=== PATIENT | female | born 1930 | race Caucasian/White ===

== ENCOUNTER 2016-07-29 09:48 | Inpatient (IN) | payer OTHER ==
[~2016-07-29] VITALS: Ht 167.6 cm; Wt 67.9 kg
[~2016-07-29 09:48] MED LIST: ARC5 PO; GLC5 PO; GLC500 PO; LISI-461 PO; NITR0.1D TD; OXYC-57 PO; SIMV80TA2 PO
[2016-07-29] MEDS ORDERED: SODIUM CHLORIDE 0.9% 500ML 500 ML IV STA (10:08)
--- NOTE | 2016-07-29 10:11 | EMERGENCY ROOM VISIT NOTE ---
History Report prepared by Vilma: Hayley Brambila Under the Supervision of: Dr. Jatinder Milton M.D. First contact with patient: 10:04 Chief Complaint: VOMITING Stated Complaint: VOMITING History of Present Illness The patient is an 86 year old female who presents to the Emergency Room with complaints of persistent vomiting that occurred prior to arrival. Per nursing staff, the patient arrives via ALS from [facility]. Nursing staff reports that the patient had a large emesis this morning that was coffee ground and had some bright red color to it. The history is limited secondary to the patient being nonverbal. Source of History: nursing staff History Limited By: other (nonverbal) Onset: prior to arrival Position: other (global) Quality: other (vomiting) Timing: other (persistent) Note: Associated Symptoms: coffee ground emesis, bright red colored emesis. Review of Systems The history is limited secondary to the patient being nonverbal. Past Medical & Surgical Medical Problems: (1) CVD (cardiovascular disease) (2) Diabetes mellitus, type II (3) Dyslipidemia (4) HTN (hypertension) Unobtainable secondary to the patient being nonverbal. Family History Unobtainable secondary to the patient being nonverbal. Social History Smoking Status: Unknown if Ever Smoked Social History: Unobtainable secondary to the patient being nonverbal. Current/Historical Medications Scheduled Atorvastatin (Lipitor), 40 MG PO DAILY Calcium Carbonate-Vitamin D (Oyster Calcium/Vitamin D), 1 TAB PO BID Cholecalciferol (Vitamin D3), 1,000 INTER.UNIT PO QAM Insulin Aspart (Novolog Flexpen), 6 UNITS SC BID Insulin Glargine (Lantus Solostar), 26 UNITS SC HS Ipratropium-Albuterol (Duoneb), 1 TREATMENT INH TID Lisinopril (Zestril), 40 MG PO QAM Memantine (Namenda), 10 MG PO Q12 Scheduled PRN Acetaminophen Tab (Tylenol), 650 MG PO Q4H PRN for Mild Pain Guaifenesin (Guiatuss), 10 ML PO Q4H PRN for Cough Allergies Coded Allergies: No Known Allergies (Verified , 10/11/07) Physical Exam Vital Signs Date Time Temp Pulse Resp B/P Pulse Ox O2 Delivery O2 Flow Rate FiO2 07/29/16 12:34 75 18 95 Room Air 07/29/16 11:31 89 20 176/89 94 07/29/16 11:01 82 07/29/16 10:01 37.3 86 22 139/85 92 Room Air 07/29/16 10:00 93 Room Air Physical Exam GENERAL: Patient is nonverbal, doesn't follow commands, doesn't answer questions. HEAD: Normocephalic atraumatic EYES: Ocular movements intact pupils equal and react to light OROPHARYNX mucous membranes are moist no exudates present no erythema or edema present NECK: Supple no nuchal rigidity CHEST: Good equal expansion LUNGS: Clear and equal to auscultation CARDIAC: Normal S1 and S2 ABDOMEN: Soft nontender no guarding BACK: No CVA tenderness EXTREMITIES: No pain upon palpation normal muscle strength in all groups no clubbing cyanosis or edema NEURO: Patient is nonverbal, doesn't follow commands, doesn't answer questions. Medical Decision & Procedures ER Provider Diagnostic Interpretation: Radiology results as stated below per my review and radiologist interpretation: CT ABD/PELVIS IV CONTRAST ONLY CLINICAL HISTORY: Nausea and vomiting COMPARISON STUDY: None. TECHNIQUE: Following the IV administration of 94 mL of Optiray-320, CT scan of the abdomen and pelvis was performed from the lung bases to the proximal femurs. Images are reviewed in the axial, sagittal, and coronal planes. IV contrast was administered without complication. CT DOSE: 729.38 mGy.cm FINDINGS: Lower chest: There is right basilar pulmonary consolidation. There are bilateral pleural effusions right greater than left. There are left lower lobe atelectatic changes. There is mild distal esophageal wall thickening. Liver: The contrast-enhanced liver is normal in size, contour, and attenuation. There is no intrahepatic biliary ductal dilatation. The hepatic veins and portal veins are patent. Gallbladder: Presumed surgically absent Spleen: Normal in size and attenuation. Pancreas: Unremarkable. Adrenal glands: Unremarkable. Kidneys: There are small bilateral intrarenal calculi. No solid renal masses are visualized. Bowel: There is stool present throughout the colon. There are no transition zones to indicate bowel obstruction. There are no findings to indicate acute appendicitis. There are no findings to indicate acute diverticulitis. Peritoneum: There is no intraperitoneal free air or abdominal ascites. Vasculature: The abdominal aorta is normal in course and caliber. Adenopathy: None. Pelvic viscera: There is bladder wall thickening. Please correlate clinically in regards to a cystitis. The uterus appears surgically absent. Skeletal structures: Arthritic changes are present within the hips. There is a 9 mm lytic focus within the right iliac bone. There is a 17 mm lytic focus within the L4 vertebral body. The bones have a somewhat "chalky" appearance. IMPRESSION: 1. Small bilateral pleural effusions with right lower lobe consolidative change 2. Bilateral nephrolithiasis 3. No evidence of bowel obstruction. No evidence of free air 4. Moderate bladder wall thickening. Please correlate clinically in regards to a cystitis 5. Nonspecific lytic foci involving the right iliac bone and L4 vertebral body Electronically signed by: Hai Larsen M.D. 07/29/2016 11:31 AM Dictated Date/Time: 07/29/2016 11:24 AM SINGLE VIEW CHEST CLINICAL HISTORY: Aspiration. Vomiting. FINDINGS: An AP, portable, upright chest radiograph is compared to study dated 07/24/2010. The heart is enlarged and there is atherosclerotic calcification of the thoracic aorta. The pulmonary vasculature is noncongested. Chronic interstitial thickening is observed. There are low lung volumes. Patchy airspace opacities are present at both lung bases. No large pleural effusion or pneumothorax is seen. The skeletal structures are osteopenic. The bony thorax is grossly intact. A right shoulder arthroplasty is in place. Advanced degenerative change is noted in the thoracic spine. Chronic widening is seen at the right acromioclavicular joint. IMPRESSION: 1. Cardiac enlargement without radiographic evidence of congestive failure 2. Patchy airspace opacities are present at both lung bases. This could represent a mild infectious/inflammatory pneumonitis as clinically queried. Radiographic follow-up to resolution is recommended. 3. Low lung volumes. Electronically signed by: Lalo Gonzalez M.D. 07/29/2016 12:34 PM Dictated Date/Time: 07/29/2016 12:27 PM Laboratory Results Test 07/29/16 09:35 07/29/16 10:21 07/29/16 10:30 Immature Granulocyte % (Auto) 0.5 % White Blood Count 9.12 K/uL (4.8-10.8) Red Blood Count 4.76 M/uL (4.2-5.4) Hemoglobin 13.9 g/dL (12.0-16.0) Hematocrit 41.8 % (37-47) Mean Corpuscular Volume 87.8 fL (80-100) Mean Corpuscular Hemoglobin 29.2 pg (25-34) Mean Corpuscular Hemoglobin Concent 33.3 g/dl (32-36) Platelet Count 248 K/uL (130-400) Mean Platelet Volume 12.3 fL (7.4-10.4) Neutrophils (%) (Auto) 86.4 % Lymphocytes (%) (Auto) 8.3 % Monocytes (%) (Auto) 4.6 % Eosinophils (%) (Auto) 0.1 % Basophils (%) (Auto) 0.1 % Neutrophils # (Auto) 7.87 K/uL (1.4-6.5) Lymphocytes # (Auto) 0.76 K/uL (1.2-3.4) Monocytes # (Auto) 0.42 K/uL (0.11-0.59) Eosinophils # (Auto) 0.01 K/uL (0-0.5) Basophils # (Auto) 0.01 K/uL (0-0.2) Immature Granulocyte # (Auto) 0.05 K/uL (0.00-0.02) Prothrombin Time 10.9 SECONDS (9.0-12.0) Prothromb Time International Ratio 1.0 (0.9-1.1) Activated Partial Thromboplast Time 23.1 SECONDS (21.0-31.0) Partial Thromboplastin Ratio 0.9 Total Bilirubin 0.6 mg/dl (0.2-1) Direct Bilirubin 0.1 mg/dl (0-0.2) Aspartate Amino Transf (AST/SGOT) 15 U/L (15-37) Alanine Aminotransferase (ALT/SGPT) 15 U/L (12-78) Alkaline Phosphatase 99 U/L (45-117) Total Protein 6.7 gm/dl (6.4-8.2) Albumin 2.9 gm/dl (3.4-5.0) Lipase 113 U/L (73-393) Bedside Hemoglobin 12.9 g/dl (12.0-16.0) Bedside Hematocrit 38 % (37-47) Bedside Sodium 146 mEq/L (135-144) Bedside Potassium 4.3 mEq/L (3.3-5.0) Bedside Chloride 112 mEq/L (101-112) Bedside Total CO2 < 5 mEq/l (24-31) Bedside Blood Urea Nitrogen 34 mg/dl (7-18) Bedside Creatinine mg/dl (0.6-1.3) Bedside Glucose (other) 300 mg/dl (70-99) Bedside Ionized Calcium (Clare) 1.20 mmol/l (1.12-1.32) Urine Color DK YELLOW Urine Appearance CLOUDY (CLEAR) Urine pH 8.0 (4.5-7.5) Urine Specific [place] 1.026 (1.000-1.030) Urine Protein 1+ (NEG) Urine Glucose (UA) 2+ (NEG) Urine Ketones 1+ (NEG) Urine Occult Blood 3+ (NEG) Urine Nitrite NEG (NEG) Urine Bilirubin NEG (NEG) Urine Urobilinogen NEG (NEG) Urine Leukocyte Esterase LARGE (NEG) Urine WBC (Auto) >30 /hpf (0-5) Urine RBC (Auto) >30 /hpf (0-4) Urine Hyaline Casts (Auto) 5-10 /lpf (0-5) Urine Epithelial Cells (Auto) >30 /lpf (0-5) Urine Bacteria (Auto) 4+ (NEG) Labs reviewed by ED physician. Medications Administered Medications (Trade) Dose Ordered Sig/Rolly Route Start Time Stop Time Status Last Admin Dose Admin Sodium Chloride (Nss 500ml) 500 ml @ 999 mls/hr Q31M STAT IV 07/29/16 10:08 07/29/16 10:38 DC 07/29/16 10:08 999 MLS/HR Ceftriaxone Sodium (Rocephin Inj) 1 gm NOW STAT IV 07/29/16 11:31 07/29/16 11:32 DC 07/29/16 11:48 1 GM Albuterol/ Ipratropium (Duoneb) 12 ml ONE ONCE INH 07/29/16 12:00 07/29/16 12:01 DC 07/29/16 12:00 12 ML Levofloxacin (Levaquin / D5W) 750 mg NOW STAT IV 07/29/16 12:45 07/29/16 12:48 DC 07/29/16 14:02 750 MG ECG Indication: vomiting Rate (beats per minute): 86 Rhythm: sinus rhythm Findings: LBBB, no acute ischemic change, no ectopy ED Course 1006: Past medical records reviewed. The patient was evaluated in room B7. A complete history and physical examination was performed. 1008: Ordered Sodium Chloride 500 ml @ 999 mls/hr IV. 1131: Ordered Rocephin Inj 1 gm IV. 1200: Ordered Duoneb 12 ml INH. 1243: I discussed the patients case with Cindy Castellanos PA-C. She is going to evaluate the patient for further treatment. 1245: Ordered Levofloxacin 750 mg IV, Vancomycin HCl 1 gm IV. Medical Decision Differential diagnosis: Etiologies such as appendicitis, diverticulitis, PUD, biliary pathology, UTI, pancreatitis, obstruction, mesenteric ischemia, aortic pathology, infections, inflammatory bowel disease, renal colic, as well as others were entertained. His is an 86-year-old female who presents emergency department with a low-grade fever and altered mental status. The patient is normally non-verbal. Upon arrival to the emergency department there is concerned that the patient may have aspirated. She does appear to have pneumonia on her chest x-ray. She was sent for CAT scan of the abdomen and pelvis which was concerning for cystitis. The patient does appear to have a urinary tract infection. The patient was pancultured up and started on normal saline bolus. I did discuss the case with the hospitalist service who agreed to admit the patient. Patient was in agreement with the treatment plan. Consults Time Called: 1243 Consulting Physician: Cindy Castellanos PA-C Returned Call: 1243 I discussed the patients case with Cindy Castellanos PA-C. She is going to evaluate the patient for further treatment. Impression Primary Impression: Aspiration pneumonia Additional Impression: Altered mental status Scribe Attestation The scribe's documentation has been prepared under my direction and personally reviewed by me in its entirety. I confirm that the note above accurately reflects all work, treatment, procedures, and medical decision making performed by me. Departure Information Dispostion Being Evaluated By Hospitalist Referrals Zulay Escamilla M.D. (PCP) Problem Qualifiers Primary Impression: Aspiration pneumonia Aspiration pneumonia type: unspecified Laterality: unspecified laterality Lung location: unspecified part of lung Qualified Codes: J69.0 - Pneumonitis due to inhalation of food and vomit Additional Impression: Altered mental status Altered mental status type: unspecified Qualified Codes: R41.82 - Altered mental status, unspecified
[2016-07-29 10:18] LABS: BASO % 0.1 %; BASO ABS # 0.01 K/uL (0-0.2); COMPLETE YES; EOS % 0.1 %; HEMATOCRIT 41.8 % (37-47); IG% 0.5 %; LYMPH % 8.3 %; LYMPH ABS # 0.76 K/uL (1.2-3.4); MEAN CELL VOLUME 87.8 fL (80-100); MEAN CORPUSCULAR HEMOGLOBIN 29.2 pg (25-34); MEAN CORPUSCULAR HGB CONC 33.3 g/dl (32-36); MEAN PLATELET VOLUME 12.3 fL (7.4-10.4); MONO % 4.6 %; NEUT % 86.4 %; PLATELET COUNT 248 K/uL (130-400); RED BLOOD COUNT 4.76 M/uL (4.2-5.4); WHITE BLOOD COUNT 9.12 K/uL (4.8-10.8)
[2016-07-29] MEDS ORDERED: LISI40TA PO (10:29)
[2016-07-29] MEDS ORDERED: [UNRECOGNIZED DRUG - CODE] PO (10:29)
[2016-07-29] MEDS ORDERED: NVLGI/PEN SC (10:29)
[2016-07-29] MEDS ORDERED: CALC-225 PO (10:29)
[2016-07-29] MEDS ORDERED: ACET325T96 PO (10:29)
[2016-07-29] MEDS ORDERED: IPRASOL4 INH (10:29)
[2016-07-29] MEDS ORDERED: INSDGIPEN SC (10:29)
[2016-07-29] MEDS ORDERED: ATOR-24 PO (10:29)
[2016-07-29] MEDS ORDERED: CHOL1000 PO (10:29)
[2016-07-29] MEDS ORDERED: NMN10 PO (10:29)
[2016-07-29 10:34] LABS: PARTIAL THROMBOPLASTIN RATIO 0.9; PROTHROMBIN TIME (PATIENT) 10.9 SECONDS (9.0-12.0)
[2016-07-29 10:35] LABS: ALT/SGPT 15 U/L (12-78); BLOOD UREA NITROGEN 30 mg/dl (7-18); BUN/CREATININE RATIO 29.5 (10-20); CARBON DIOXIDE 27 mmol/L (21-32); CHLORIDE 111 mmol/L (98-107); GLUCOSE 289 mg/dl (70-99); POTASSIUM 4.2 mmol/L (3.5-5.1); SODIUM 148 mmol/L (136-145)
[2016-07-29 10:36] LABS: CALCIUM 9.7 mg/dl (8.5-10.1)
[2016-07-29 10:38] LABS: ALKALINE PHOSPHATASE 99 U/L (45-117); AST/SGOT 15 U/L (15-37)
[2016-07-29] MEDS ORDERED: OPTIRAY 320 IV PRN (10:45)
[2016-07-29 11:06] LABS: URINE APPEARANCE CLOUDY (CLEAR); URINE BILIRUBIN NEG (NEG); URINE COLOR DK YELLOW; URINE EPITHELIAL CELL AUTO >30 /lpf (0-5); URINE NITRITE NEG (NEG); URINE SPECIFIC GRAVITY 1.026 (1.000-1.030); UROBILINOGEN NEG (NEG); ZZURINE CULT IF INDIC CATH YES
[2016-07-29 11:19] LABS: MANUAL MICROSCOPIC REQUIRED? NO; REVIEW REQ? NO; SULFASALICYLIC ACID POS (NEG)
[2016-07-29] MEDS ORDERED: CEFTRIAXONE SOD INJ 1 GM ADDVIAL IV STA (11:31)
--- NOTE | 2016-07-29 11:33 | DIAGNOSTIC IMAGING REPORT ---
CT ABD/PELVIS IV CONTRAST ONLY CLINICAL HISTORY: Nausea and vomiting COMPARISON STUDY: None. TECHNIQUE: Following the IV administration of 94 mL of Optiray-320, CT scan of the abdomen and pelvis was performed from the lung bases to the proximal femurs. Images are reviewed in the axial, sagittal, and coronal planes. IV contrast was administered without complication. CT DOSE: 729.38 mGy.cm FINDINGS: Lower chest: There is right basilar pulmonary consolidation. There are bilateral pleural effusions right greater than left. There are left lower lobe atelectatic changes. There is mild distal esophageal wall thickening. Liver: The contrast-enhanced liver is normal in size, contour, and attenuation. There is no intrahepatic biliary ductal dilatation. The hepatic veins and portal veins are patent. Gallbladder: Presumed surgically absent Spleen: Normal in size and attenuation. Pancreas: Unremarkable. Adrenal glands: Unremarkable. Kidneys: There are small bilateral intrarenal calculi. No solid renal masses are visualized. Bowel: There is stool present throughout the colon. There are no transition zones to indicate bowel obstruction. There are no findings to indicate acute appendicitis. There are no findings to indicate acute diverticulitis. Peritoneum: There is no intraperitoneal free air or abdominal ascites. Vasculature: The abdominal aorta is normal in course and caliber. Adenopathy: None. Pelvic viscera: There is bladder wall thickening. Please correlate clinically in regards to a cystitis. The uterus appears surgically absent. Skeletal structures: Arthritic changes are present within the hips. There is a 9 mm lytic focus within the right iliac bone. There is a 17 mm lytic focus within the L4 vertebral body. The bones have a somewhat "chalky" appearance. IMPRESSION: 1. Small bilateral pleural effusions with right lower lobe consolidative change 2. Bilateral nephrolithiasis 3. No evidence of bowel obstruction. No evidence of free air 4. Moderate bladder wall thickening. Please correlate clinically in regards to a cystitis 5. Nonspecific lytic foci involving the right iliac bone and L4 vertebral body Electronically signed by: Hai Larsen M.D. 07/29/2016 11:31 AM Dictated Date/Time: 07/29/2016 11:24 AM
[2016-07-29] MEDS ORDERED: ALBUT/IPRATROP 3MG/0.5MG NEB 3 ML VIAL INH ONE (12:00)
[2016-07-29 12:34] VITALS: PULSE 75; O2SAT 95
--- NOTE | 2016-07-29 12:36 | DIAGNOSTIC IMAGING REPORT ---
SINGLE VIEW CHEST CLINICAL HISTORY: Aspiration. Vomiting. FINDINGS: An AP, portable, upright chest radiograph is compared to study dated 07/24/2010. The heart is enlarged and there is atherosclerotic calcification of the thoracic aorta. The pulmonary vasculature is noncongested. Chronic interstitial thickening is observed. There are low lung volumes. Patchy airspace opacities are present at both lung bases. No large pleural effusion or pneumothorax is seen. The skeletal structures are osteopenic. The bony thorax is grossly intact. A right shoulder arthroplasty is in place. Advanced degenerative change is noted in the thoracic spine. Chronic widening is seen at the right acromioclavicular joint. IMPRESSION: 1. Cardiac enlargement without radiographic evidence of congestive failure 2. Patchy airspace opacities are present at both lung bases. This could represent a mild infectious/inflammatory pneumonitis as clinically queried. Radiographic follow-up to resolution is recommended. 3. Low lung volumes. Electronically signed by: Lalo Gonzalez M.D. 07/29/2016 12:34 PM Dictated Date/Time: 07/29/2016 12:27 PM
[2016-07-29] MEDS ORDERED: VANCOMYCIN 1GM/270ML NSS IV STA (12:45)
[2016-07-29] MEDS ORDERED: LEVAQUIN 750MG / 150ML D5W IV STA (12:45)
[2016-07-29] MEDS ORDERED: ONDANSETRON INJ 2 MG/ML 2 ML VIAL IV PRN (13:30)
[2016-07-29] MEDS ORDERED: ACETAMINOPHEN 325 MG TAB PO PRN (13:30)
[2016-07-29] MEDS ORDERED: DEXTROSE 50% 50 ML SYR IV PRN (14:00)
[2016-07-29] MEDS ORDERED: GLUCOSE 10 TABS/TUBE PO PRN (14:00)
[2016-07-29] MEDS ORDERED: GLUCOSE 40% GEL 15 GM TUBE PO PRN (14:00)
[2016-07-29] MEDS ORDERED: GLUCAGON FOR INJ 1 MG VIAL SQ PRN (14:00)
[2016-07-29] MEDS ORDERED: GUAIFENESIN SUGAR FREE 100 MG/5 ML UDC PO PRN (14:00)
[2016-07-29 15:00] VITALS: BP 129/78; PULSE 112; TEMP 37.1; O2SAT 91; Ht 167.6 cm; Wt 67.9 kg
--- NOTE | 2016-07-29 15:05 | Progress Note ---
Progress Note Date of Service Jul 29, 2016. Progress Note Patient was seen and evaluated with Johana BANDA. Patient came from [place] for possible aspiration/coffee ground vomitus. On my evaluation, she is Awake, alert, but disoriented x 3 as per her baseline, minimal communication which is the baseline Lungs- AEBE decreased, no wheezing, Heart- S1, S2 normal, Abd- soft, non tender , non distended, BS present, Ext- no edema Neuro- Grossly no focal deficits. A/P: 1. POSSIBLE ASPIRATION PNEUMONIA Noted by NH, possibly aspirated as had a vomitus Not hypoxic- 90% at rest, HR a bit up, no leucocytosis, CXR- patchy bilateral airspace opacities -IV Unasyn empirically to cover pneumonia/Abnormal UA concerning for UTI -Discussed with - permissive aspiration, understands risk of aspiration including pneumonias, understands. -No indication for speech evaluation. Aspiration precautions + 2. HYPERNATREMIA, MILD Likely hypovolemic secondary to infection/inadequate intake/Dementia -IV Fluids and encourage PO to be given by RN round the clock while awake ( order placed) -Monitor 2. QUESTIONABLE COFFEE GROUND EMESIS ? -Unable to get any history of melena or concerns about fresh red blood in stool -Hb stable at 13 -Will monitor -Protonix BID PO 3. ADVANCED DEMENTIA -At baseline per - minimal communication, disoriented x 3, awake, alert though. DISPOSITION Doubt it will participate in PT/OT. Code status needs to be addressed in AM Admission to med-surg Back to NH once stable Discussed with by bedside.
--- NOTE | 2016-07-29 15:29 | History and Physical ---
History & Physical Date & Time of Service: Jul 29, 2016 at 14:32 Chief Complaint: Vomiting Primary Care Physician: Zulay Escamilla M.D. History of Present Illness Source: patient This is an 86 y/o female with PMHx of Insulin-Dependent DM2, HTN, Dyslipidemia who presents to the ED from [facility] due to episode of coffee- ground emesis this morning. Pt is non-verbal due to severe dementia therefore entire history is obtained from skilled nursing documentation. Per records, patient was found with copious amounts of vomit that looked coffee-ground in appearance. She was also noted to have a wet-cough. Unable to obtain ROS due to severe dementia. In the ED, vitals are stable. Pt is afebrile with no leukocytosis. HgB 13.9. CXR RLL consolidation. UA 4+ bacteria. Pt has not had any more episodes of emesis since arrival to the ED. She is stable and will be admitted for further evaluation and treatment. Past Medical/Surgical History Medical Problems: (1) CVD (cardiovascular disease) Status: Chronic (2) Diabetes mellitus, type II Status: Chronic (3) Dyslipidemia Status: Chronic (4) HTN (hypertension) Status: Chronic Social History Smoking Status: Unknown if Ever Smoked Alcohol Use: none Drug Use: none Marital Status: Housing status: skilled nursing Occupational Status: retired Immunizations History of Influenza Vaccine: Unknown Influenza Vaccine Date: Jan 28, 2010 History of Tetanus Vaccine?: Unknown History of Pneumococcal: Yes Pneumococcal Date: August 29, 2010 History of Hepatitis B Vaccine: Unknown Multi-Drug Resistant Organisms History of MDRO: No Allergies Coded Allergies: No Known Allergies (Verified , 10/11/07) Home Medications Scheduled Atorvastatin (Lipitor), 40 MG PO DAILY Calcium Carbonate-Vitamin D (Oyster Calcium/Vitamin D), 1 TAB PO BID Cholecalciferol (Vitamin D3), 1,000 INTER.UNIT PO QAM Insulin Aspart (Novolog Flexpen), 6 UNITS SC BID Insulin Glargine (Lantus Solostar), 26 UNITS SC HS Ipratropium-Albuterol (Duoneb), 1 TREATMENT INH TID Lisinopril (Zestril), 40 MG PO QAM Memantine (Namenda), 10 MG PO Q12 Scheduled PRN Acetaminophen Tab (Tylenol), 650 MG PO Q4H PRN for Mild Pain Guaifenesin (Guiatuss), 10 ML PO Q4H PRN for Cough Review of Systems Unable to obtain ROS due to severe dementia Physical Exam Vital Signs Date Time Temp Pulse Resp B/P Pulse Ox O2 Delivery O2 Flow Rate FiO2 07/29/16 14:00 112 22 130/85 94 Room Air 07/29/16 12:34 75 18 95 Room Air 07/29/16 11:31 89 20 176/89 94 07/29/16 11:01 82 07/29/16 10:01 37.3 86 22 139/85 92 Room Air 07/29/16 10:00 93 Room Air General Appearance: WD/WN, no apparent distress, + pertinent finding (Pt is laying in bed with no family at bedside ) Head: normocephalic, atraumatic Eyes: normal inspection ENT: hearing grossly normal Neck: supple Respiratory/Chest: chest non-tender, no respiratory distress, + rhonchi ( diffuse), + pertinent finding (no wheezing noted) Cardiovascular: regular rate, rhythm, no edema, no murmur Abdomen/GI: normal bowel sounds, non tender, soft Back: normal inspection Extremities/Musculoskelatal: normal inspection, no calf tenderness, no pedal edema Neurologic/Psych: alert, + pertinent finding (no gross focal neuro deficits) Skin: normal color, warm/dry Diagnostics Laboratory Results Results Past 24 Hours Test 07/29/16 09:35 07/29/16 10:30 Range/Units White Blood Count 9.12 4.8-10.8 K/uL Red Blood Count 4.76 4.2-5.4 M/uL Hemoglobin 13.9 12.0-16.0 g/dL Hematocrit 41.8 37-47 % Mean Corpuscular Volume 87.8 80-100 fL Mean Corpuscular Hemoglobin 29.2 25-34 pg Mean Corpuscular Hemoglobin Concent 33.3 32-36 g/dl Platelet Count 248 130-400 K/uL Mean Platelet Volume 12.3 7.4-10.4 fL Neutrophils (%) (Auto) 86.4 % Lymphocytes (%) (Auto) 8.3 % Monocytes (%) (Auto) 4.6 % Eosinophils (%) (Auto) 0.1 % Basophils (%) (Auto) 0.1 % Neutrophils # (Auto) 7.87 1.4-6.5 K/uL Lymphocytes # (Auto) 0.76 1.2-3.4 K/uL Monocytes # (Auto) 0.42 0.11-0.59 K/uL Eosinophils # (Auto) 0.01 0-0.5 K/uL Basophils # (Auto) 0.01 0-0.2 K/uL RDW Standard Deviation 45.3 36.4-46.3 fL RDW Coefficient of Variation 14.0 11.5-14.5 % Immature Granulocyte % (Auto) 0.5 % Immature Granulocyte # (Auto) 0.05 0.00-0.02 K/uL Prothrombin Time 10.9 9.0-12.0 SECONDS Prothromb Time International Ratio 1.0 0.9-1.1 Activated Partial Thromboplast Time 23.1 21.0-31.0 SECONDS Partial Thromboplastin Ratio 0.9 Sodium Level 148 136-145 mmol/L Potassium Level 4.2 3.5-5.1 mmol/L Chloride Level 111 98-107 mmol/L Carbon Dioxide Level 27 21-32 mmol/L Anion Gap 10.0 3-11 mmol/L Blood Urea Nitrogen 30 7-18 mg/dl Creatinine 1.00 0.60-1.20 mg/dl Estimated GFR () 59.9 Estimated GFR (Non- 51.7 BUN/Creatinine Ratio 29.5 10-20 Random Glucose 289 70-99 mg/dl Calcium Level 9.7 8.5-10.1 mg/dl Total Bilirubin 0.6 0.2-1 mg/dl Direct Bilirubin 0.1 0-0.2 mg/dl Aspartate Amino Transf (AST/SGOT) 15 15-37 U/L Alanine Aminotransferase (ALT/SGPT) 15 12-78 U/L Alkaline Phosphatase 99 45-117 U/L Total Protein 6.7 6.4-8.2 gm/dl Albumin 2.9 3.4-5.0 gm/dl Lipase 113 73-393 U/L Urine Color DK YELLOW Urine Appearance CLOUDY CLEAR Urine pH 8.0 4.5-7.5 Urine Specific [place] 1.026 1.000-1.030 Urine Protein 1+ NEG Urine Glucose (UA) 2+ NEG Urine Ketones 1+ NEG Urine Occult Blood 3+ NEG Urine Nitrite NEG NEG Urine Bilirubin NEG NEG Urine Urobilinogen NEG NEG Urine Leukocyte Esterase LARGE NEG Urine WBC (Auto) >30 0-5 /hpf Urine RBC (Auto) >30 0-4 /hpf Urine Hyaline Casts (Auto) 5-10 0-5 /lpf Urine Epithelial Cells (Auto) >30 0-5 /lpf Urine Bacteria (Auto) 4+ NEG Microbiology Results 07/29/16 Blood Culture, Received Pending 07/29/16 Blood Culture, Received Pending 07/29/16 Urine Culture, Received Pending Diagnostic Radiology CXR IMPRESSION: 1. Cardiac enlargement without radiographic evidence of congestive failure 2. Patchy airspace opacities are present at both lung bases. This could represent a mild infectious/inflammatory pneumonitis as clinically queried. Radiographic follow-up to resolution is recommended. 3. Low lung volumes. CT ABD/PELVIS IMPRESSION: 1. Small bilateral pleural effusions with right lower lobe consolidative change 2. Bilateral nephrolithiasis 3. No evidence of bowel obstruction. No evidence of free air 4. Moderate bladder wall thickening. Please correlate clinically in regards to a cystitis 5. Nonspecific lytic foci involving the right iliac bone and L4 vertebral body EKG EKG: sinus rhythm at 86 bpm with PACs and LBBB; no change when compared to EKG from 07/29/16 Impression Assessment and Plan ASPIRATION PNEUMONIA pt presents with cough after episode of vomiting this morning -admit ti med/surg -pt is afebrile with no leukocytosis; saturating well on room air -CT + RLL consolidation -blood and sputum cx-pending -start IVF and abx (Unasyn) -cont duonebs and Mucinex -discussed with - permissive aspiration, understands risk of aspiration including pneumonias -aspiration precautions -speech eval not necessary -pt does not appear septic -monitor POSSIBLE COFFEE-GROUND EMESIS -1 episode of coffee-ground emesis per documentation from [facility] -Unable to get any history of melena or concerns about fresh red blood in stool -Hgb stable at 13.9 -start Protonix PO BID -Will monitor HgB daily UTI -UA 4+ bacteria and 3+ blood -urine cx-pending -cont gentle IVF and Unasyn -monitor SEVERE DEMENTIA -At baseline per - minimal communication, disoriented x 3, awake, alert though. INSULIN-DEPENDENT DM 2 -recent A1C 7.1 -hold Lantus and NovoLog -start ISS -monitor BSG AC HS HTN -BP stable -cont Lisinopril -monitor DYSLIPIDEMIA -cont statin DVT PROPHYLAXIS -SCDs only in setting of possible episode of coffee-ground emesis CODE STATUS -FULL CODE per [facility] documentation. Will need to be discussed with family in AM. DISPO Pt seen in collaboration with Dr. Lieberman. Please see her addendum for further details. Thanks! -Of note: patient will be followed by Dr. Smith starting tomorrow AM. VTE Prophylaxis VTE Risk Assessment Done? Y/N: Yes Risk Level: Moderate
[2016-07-29 15:41] LABS: ISTAT CARBON DIOXIDE < 5 mEq/l (24-31); ISTAT CHLORIDE 112 mEq/L (101-112); ISTAT HEMATOCRIT 38 % (37-47); ISTAT HEMOGLOBIN 12.9 g/dl (12.0-16.0); ISTAT SODIUM 146 mEq/L (135-144)
[2016-07-29] MEDS ORDERED: GUAIFENESIN SUGAR FREE 200 MG/10 ML UDC PO PRN (16:00)
[2016-07-29] MEDS: AMPICILLIN/SULBACTAM SOD INJ 3,000 MG in SODIUM CHLORIDE 0.9% 100ML 100 ML IV SCH ×2 (16:29→21:35)
[2016-07-29] MEDS: SODIUM CHLORIDE 0.9% 1000ML 1,000 ML IV SCH (16:29)
[2016-07-29] MEDS: CALCIUM 600MG + VIT D 400 IU TAB PO SCH (17:32)
[2016-07-29] MEDS: INSULIN ASPART 100 UNITS/ML 3 ML PEN SC SCH ×2 (18:05→20:39)
[2016-07-29] MEDS: PANTOprazole SOD 40 MG TAB PO SCH (20:38)
[2016-07-29] MEDS: MEMANTINE 10 MG TAB PO SCH (20:38)
[2016-07-29] MEDS: ALBUT/IPRATROP 3MG/0.5MG NEB 3 ML VIAL INH SCH (22:35)
[2016-07-29 22:40] VITALS: PULSE 85; O2SAT 93
[2016-07-30] VITALS (7 sets, daily range): BP systolic 146–177; BP diastolic 76–91; PULSE 69–95; TEMP 37–37.5; O2SAT 90–94
[2016-07-30] MEDS: SODIUM CHLORIDE 0.9% 1000ML 1,000 ML IV SCH (04:23)
[2016-07-30] MEDS: AMPICILLIN/SULBACTAM SOD INJ 3,000 MG in SODIUM CHLORIDE 0.9% 100ML 100 ML IV SCH ×4 (04:23→21:06)
[2016-07-30 07:10] LABS: HEMATOCRIT 37.3 % (37-47); MEAN CELL VOLUME 88.4 fL (80-100); MEAN CORPUSCULAR HEMOGLOBIN 30.1 pg (25-34); MEAN PLATELET VOLUME 11.9 fL (7.4-10.4); PLATELET COUNT 210 K/uL (130-400); RED BLOOD COUNT 4.22 M/uL (4.2-5.4); WHITE BLOOD COUNT 6.22 K/uL (4.8-10.8)
[2016-07-30] MEDS: ALBUT/IPRATROP 3MG/0.5MG NEB 3 ML VIAL INH SCH ×4 (07:22→19:26)
[2016-07-30 07:59] LABS: BUN/CREATININE RATIO 24.7 (10-20); CALCIUM 8.7 mg/dl (8.5-10.1); CREATININE 0.99 mg/dl (0.60-1.20); POTASSIUM 3.5 mmol/L (3.5-5.1)
[2016-07-30] MEDS ORDERED: SODIUM CHLORIDE 0.45% 1000ML 1,000 ML IV SCH (08:15)
[2016-07-30] MEDS: INSULIN ASPART 100 UNITS/ML 3 ML PEN SC SCH ×4 (09:24→21:23)
[2016-07-30] MEDS: CHOLECALCIFEROL 1000 INTER.UNIT TAB PO SCH (09:31)
[2016-07-30] MEDS: LISINOPRIL 40 MG TAB PO SCH (09:31)
[2016-07-30] MEDS: ATORVASTATIN 40 MG TAB PO SCH (09:31)
[2016-07-30] MEDS: MEMANTINE 10 MG TAB PO SCH ×2 (09:32→21:02)
[2016-07-30] MEDS: PANTOprazole SOD 40 MG TAB PO SCH (09:32)
[2016-07-30] MEDS: CALCIUM 600MG + VIT D 400 IU TAB PO SCH ×2 (09:32→16:27)
[2016-07-30] MEDS ORDERED: VANCOMYCIN CONSULT ACTIVE PRN (13:01)
--- NOTE | 2016-07-30 13:08 | Progress Note ---
Medicine Progress Note Date & Time of Visit: Jul 30, 2016 at 12:57. Subjective RN at bedside during entire encounter patient awake, alert, non verbal, comfortable no signs of pain, respiratory distress able to eat 25% of meal, no signs of cough/choking no nausea, diarrhea/melena observed full ROS difficult to perform as patient has dementia Objective Last 8 Hrs Date Time Temp Pulse Resp B/P Pulse Ox O2 Delivery O2 Flow Rate FiO2 07/30/16 11:46 69 14 90 Room Air 07/30/16 07:22 85 14 92 Room Air 07/30/16 07:17 37.0 79 20 177/79 92 Room Air Physical Exam: General- not in distress, no accessory muscle use Head- atraumatic Eyes- EOMI, anicteric ENT- oropharynx clear Neck- supple, no JVD, no adenopathy, no thyromegaly; no bruits appreciated Lungs- mild decrease in breath sounds on the right base, no wheeze, clear breath sounds on the left Heart- normal rate, regular rhythm; no murmurs Abdomen- normal bowel sounds, soft, nontender Extremities- no pretibial edema, no calf tenderness Neuro- (+) dementia, no gross focal deficits Skin- warm & dry Laboratory Results: Last 24 Hours Test 07/29/16 16:16 07/29/16 20:29 07/30/16 06:30 07/30/16 07:28 Bedside Glucose 273 mg/dl 243 mg/dl 160 mg/dl White Blood Count 6.22 K/uL Red Blood Count 4.22 M/uL Hemoglobin 12.7 g/dL Hematocrit 37.3 % Mean Corpuscular Volume 88.4 fL Mean Corpuscular Hemoglobin 30.1 pg Mean Corpuscular Hemoglobin Concent 34.0 g/dl RDW Standard Deviation 46.5 fL RDW Coefficient of Variation 14.3 % Platelet Count 210 K/uL Mean Platelet Volume 11.9 fL Sodium Level 152 mmol/L Potassium Level 3.5 mmol/L Chloride Level 118 mmol/L Carbon Dioxide Level 26 mmol/L Anion Gap 8.0 mmol/L Blood Urea Nitrogen 24 mg/dl Creatinine 0.99 mg/dl Est Creatinine Clear Calc Drug Dose 39.6 ml/min Estimated GFR () 60.6 Estimated GFR (Non- 52.3 BUN/Creatinine Ratio 24.7 Random Glucose 172 mg/dl Calcium Level 8.7 mg/dl Test 07/30/16 11:14 07/30/16 12:25 Bedside Glucose 239 mg/dl Date/Time Source Procedure Growth Status 07/29/16 13:30 Blood Blood Culture - Preliminary Gram Positive Cocci Resulted 07/29/16 13:25 Blood Blood Culture Pending Received 07/29/16 16:30 Nasal MRSA DNA Surveillance Screen - Final Specimen Negative for MRSA by DNA Probe Complete Assessment & Plan 86 year old female with history of Dementia, resident of [facility], DM, HTN, HLD presenting with coffee ground emesis. ASPIRATION PNEUMONIA, RIGHT LOWER LOBE pt presents with cough after episode of vomiting this morning -CT + RLL consolidation -blood and sputum cx-pending -cont Unasyn Day 2 added Vanco Day 2 for possible gram positive cocci bacteremia continue duonebs and Mucinex -discussed with - permissive aspiration, understands risk of aspiration including pneumonias UTI -UA 4+ bacteria and 3+ blood -urine cx- gram negative bacilli - on Unasyn Day 2 POSSIBLE COFFEE-GROUND EMESIS -1 episode of coffee-ground emesis per documentation from [facility] -Unable to get any history of melena or concerns about fresh red blood in stool -no recurrence -Hgb 13.9 to 12.7 - continue Protonix 40mg BID IV HYPERNATREMIA - 1/2 NSS started - repeat Na pending SEVERE DEMENTIA -At baseline per - minimal communication, disoriented x 3, awake, alert though. INSULIN-DEPENDENT DM 2 -recent A1C 7.1 - on ISS will consult pharmacy HTN -BP stable -cont Lisinopril -monitor DYSLIPIDEMIA -cont statin DVT PROPHYLAXIS -SCDs only in setting of possible episode of coffee-ground emesis CODE STATUS -FULL CODE per [facility] documentation. Will need to be discussed with family DISPO pending expected to return to [facility] when medically stable Current Inpatient Medications: Current Inpatient Medications Medications (Trade) Dose Ordered Sig/Rolly Route Start Time Stop Time Status Last Admin Dose Admin Ioversol (Optiray 320) 100 ml UD PRN IV 07/29/16 10:45 08/02/16 10:44 Acetaminophen (Tylenol Tab) 650 mg Q4H PRN PO 07/29/16 13:30 08/28/16 13:29 Ondansetron HCl (Zofran Inj) 4 mg Q6H PRN IV 07/29/16 13:30 08/28/16 13:29 Albuterol/ Ipratropium 3 ml 3 ml QIDR INH 07/29/16 16:00 08/28/16 15:59 07/30/16 11:45 3 ML Ampicillin Sodium/ Sulbactam Sodium/ Sodium Chloride (Unasyn Inj/Nss 100ml) 108 ml @ 200 mls/hr Q6H IV 07/29/16 16:00 08/05/16 15:59 07/30/16 09:29 200 MLS/HR Insulin Aspart (novoLOG ASPART) SLIDING SCALE If C... ACHS SC 07/29/16 16:30 08/28/16 16:29 07/29/16 20:39 2 UNITS Glucose (Glucose 40% Gel) 15-30 GRAMS 15 GRAMS... UD PRN PO 07/29/16 14:00 08/28/16 13:59 Glucose (Glucose Chew Tab) 4-8 Tablets 4 Tabl... UD PRN PO 07/29/16 14:00 08/28/16 13:59 Dextrose (Dextrose 50% 50ML Syringe) 25-50ML OF 50% DW IV FOR... UD PRN IV 07/29/16 14:00 08/28/16 13:59 Glucagon (Glucagon Inj) 1 mg UD PRN SQ 07/29/16 14:00 08/28/16 13:59 Atorvastatin Calcium (Lipitor Tab) 40 mg DAILY PO 07/30/16 08:00 08/29/16 08:59 07/30/16 09:31 40 MG Cholecalciferol (Vitamin D Tab) 1,000 inter.unit QAM PO 07/30/16 08:00 08/29/16 08:59 07/30/16 09:31 1,000 INTER.UNIT Lisinopril (Zestril Tab) 40 mg QAM PO 07/30/16 08:00 08/29/16 08:59 07/30/16 09:31 40 MG Memantine (Namenda Tab) 10 mg Q12 PO 07/29/16 21:00 08/28/16 20:59 07/30/16 09:32 10 MG Calcium/Vitamin D (Caltrate Plus Tab) 1 tab BIDM PO 07/29/16 17:00 08/28/16 16:59 07/30/16 09:32 1 TAB Guaifenesin 200 mg 200 mg Q4H PRN PO 07/29/16 16:00 08/28/16 15:59 Sodium Chloride (1/2 Nss 1000ml) 1,000 ml @ 75 mls/hr [id number] IV 07/30/16 08:15 08/29/16 08:14 07/30/16 09:29 75 MLS/HR Miscellaneous Information 1 ea 1 ea NOW STAT N/A 07/30/16 12:33 07/30/16 12:34 UNV Pantoprazole Sodium/Syringe (Protonix Inj/ Syringe) 10 ml @ 5 mls/min DAILY@09,21 IV 07/30/16 21:00 08/29/16 20:59 Miscellaneous Information (Pharmacy Consult) 1 ea NOW STAT N/A 07/30/16 12:48 07/30/16 12:49 UNV
[2016-07-30 13:14] LABS: CALCIUM 9.1 mg/dl (8.5-10.1)
[2016-07-30 13:20] LABS: BUN/CREATININE RATIO 22.2 (10-20); CREATININE 1.1 mg/dl (0.60-1.20); POTASSIUM 3.6 mmol/L (3.5-5.1)
[2016-07-30] MEDS ORDERED: PHARMACY GLYCEMIC MGMT CONSULT PRN (13:34)
[2016-07-30] MEDS ORDERED: VANCOMYCIN INJ 1,350 MG in SODIUM CHLORIDE 0.9% 250ML 250 ML IV SCH (14:00)
--- NOTE | 2016-07-30 14:02 | Pharmacy Progress Note ---
Glycemic Control Intl Consult Date of Service Jul 30, 2016. Scope Glycemic Pharmacist consulted by Dr Smith on 07/30/16 for glycemic control and to write orders per [facility] inpatient glycemic control protocol Objective Weight (Kilograms): 67.900 Accuchecks BSG (last 24hrs): Test 07/29/16 16:16 07/29/16 20:29 07/30/16 06:30 07/30/16 07:28 Bedside Glucose 273 mg/dl (70-90) 243 mg/dl (70-90) 160 mg/dl (70-90) Random Glucose 172 mg/dl (70-99) Test 07/30/16 11:14 07/30/16 12:25 Bedside Glucose 239 mg/dl (70-90) Random Glucose 238 mg/dl (70-99) Laboratory Data (last 24hrs) Test 07/30/16 06:30 07/30/16 12:25 Anion Gap 8.0 mmol/L 11.0 mmol/L BUN/Creatinine Ratio 24.7 22.2 Blood Urea Nitrogen 24 mg/dl 24 mg/dl Creatinine 0.99 mg/dl 1.10 mg/dl Potassium Level 3.5 mmol/L 3.6 mmol/L Sodium Level 152 mmol/L 151 mmol/L White Blood Count 6.22 K/uL Recent Pertinent Medications Outpatient Anti-diabetic Regimen: * Lantus 26 units SQ q HS * NovoLog * 6 units SQ with breakfast * 10 units SQ with lunch * 6 units SQ with dinner * A1c = 7.1 % 06/27/16 The patient is currently receiving: * Basal insulin: * none at time of consult * Bolus Insulin: * NovoLog Correction per scale AC/HS * Goal Range: Low 120 mg/dL - High 160 mg/dL * Correction Factor: 70 mg/dL/unit * Carb ratio of 1 unit per 23 grams CHO consumed Risk Factors for Insulin Resistance: * Infection: aspiration pneumonia/UTI - current ABX include vancomycin and ampicillin/sulbactam * IVF: 1/2NS * Diet: T2DM - tolerated ~25% of meal Assessment & Plan ASSESSMENT: Initial: * ADA & AACE recommend a goal blood sugar range 140-180 mg/dl for the majority of critically ill & non-critically ill patients. * 86 y/o type 2 diabetic with adequate glycemic control as an outpatient. * Utilizes basal and bolus insulin * Admitted secondary to infection (pulm vs urinary source) * Hyperglycemia since admission * likely now slightly deficient in basal insulin. 07/30/16 * Fasting BSG elevated today above 140mg/dL and sustained hyperglycemia throughout the day yesterday * add basal insulin to regimen at a reduced regime compared to outpatient dosing secondary to reduced PO intake * NovoLog parameters will need to be more aggressive to more closely match home needs * tighten correction factor and carb ratio, accordingly PLAN FOR INPATIENT GLYCEMIC CONTROL: * Basal insulin: * Begin Lantus 15 units SQ q HS * Bolus insulin: * continue NovoLog AC and HS * Correction factor tighten to 35mg/dL/unit * Carb ratio tighten to 1 unit per 12 g of CHO consumed * Goal range increased to 140-180mg/dL per ADA recommendations * A1c - current RECOMMENDATIONS FOR DISCHARGE: * Likely, the patient can continue home regimen as listed above based on A1c. * Please note that the plan above was derived based on current level of insulin resistance and hospital stress. These recommendations are appropriate for inpatient admission only. Plan of care upon discharge will need to be reassessed to avoid potential outpatient hypo/hyperglycemia. Thank you.
--- NOTE | 2016-07-30 17:50 | Pharmacy Progress Note ---
Pharmacy Antibiotic Consult Date of Service: Jul 30, 2016. Pharmacy Dosing Scope Pharmacy is consulted to initiate vancomycin IV dosing therapy, order appropriate labs and adjust drug dose/frequency. Subjective The patient is a 86 year old female admitted on Jul 29, 2016 at 13:32 with aspiration pnx (small bilateral pleural effusions), and bacteremia. Objective Height (Feet): 5 Height (Inches): 6.00 Weight (Kilograms): 67.900 Lab Results (24hrs): Laboratory Tests Test 07/30/16 06:30 07/30/16 12:25 BUN/Creatinine Ratio 24.7 22.2 Blood Urea Nitrogen 24 mg/dl 24 mg/dl Creatinine 0.99 mg/dl 1.10 mg/dl White Blood Count 6.22 K/uL Micro Results: Gm pos cocci in one of 2 bc's Gm neg bacilli in urine cx Recent Pertinent Medications Given in ER: Levaquin 750mg IV x 1, Rocephin 1gm IV x 1 Assessment & Plan Vancomycin: Loading dose: 1350mg IV X 1 dose (~20mg/kg) then: 1000 mg IV every 24 hours. Goal peak level estimate: between 35 - 40 mcg/mL. Goal trough level estimate: between 15 - 20 mcg/mL. Peak and trough or random level has been ordered for: 08/02 prior to 1400 dose. Pt is also receiving Unasyn 3gm IV q 6 hrs. No dosage adjustment necessary for CrCl > 30ml/min. Pharmacy will continue to follow and will adjust dose/frequency as necessary. Thank you
[2016-07-30 19:00] LABS: BUN/CREATININE RATIO 18.3 (10-20); CALCIUM 8.4 mg/dl (8.5-10.1); CREATININE 1.1 mg/dl (0.60-1.20); POTASSIUM 3.4 mmol/L (3.5-5.1)
[2016-07-30] MEDS ORDERED: INSULIN GLARGINE SOLOSTAR 100 UNITS/ML 3 ML PEN SC SCH (21:00)
[2016-07-30] MEDS: PANTOprazole INJ 40 MG in SYRINGE 0 ML IV SCH (21:02)
[2016-07-30] MEDS ORDERED: SODIUM CHLOR 0.45% + 20MEQ KCL 1,000 ML IV SCH (21:30)
[2016-07-31] VITALS (9 sets, daily range): BP systolic 156–174; BP diastolic 73–93; PULSE 66–91; TEMP 36.5–37.1; O2SAT 91–97
[2016-07-31] MEDS: AMPICILLIN/SULBACTAM SOD INJ 3,000 MG in SODIUM CHLORIDE 0.9% 100ML 100 ML IV SCH ×4 (04:50→21:39)
[2016-07-31] MEDS: INSULIN ASPART 100 UNITS/ML 3 ML PEN SC SCH ×4 (06:30→21:38)
[2016-07-31] MEDS: ALBUT/IPRATROP 3MG/0.5MG NEB 3 ML VIAL INH SCH ×4 (07:25→19:15)
[2016-07-31] MEDS: CHOLECALCIFEROL 1000 INTER.UNIT TAB PO SCH (07:33)
[2016-07-31] MEDS: MEMANTINE 10 MG TAB PO SCH ×2 (07:33→21:39)
[2016-07-31] MEDS: CALCIUM 600MG + VIT D 400 IU TAB PO SCH ×2 (07:33→17:20)
[2016-07-31] MEDS: LISINOPRIL 40 MG TAB PO SCH (07:33)
[2016-07-31] MEDS: ATORVASTATIN 40 MG TAB PO SCH (07:33)
[2016-07-31] MEDS: PANTOprazole INJ 40 MG in SYRINGE 0 ML IV SCH ×2 (08:29→21:38)
--- NOTE | 2016-07-31 10:22 | Progress Note ---
Medicine Progress Note Date & Time of Visit: Jul 31, 2016 at 10:16. Subjective seen resting in bed, sleeping but rousable no signs of respiratory distress full ROS not able to be performed as patient has severe dementia Objective Last 8 Hrs Date Time Temp Pulse Resp B/P Pulse Ox O2 Delivery O2 Flow Rate FiO2 07/31/16 08:00 Room Air 07/31/16 07:26 36.7 68 18 156/73 94 Room Air 07/31/16 07:25 66 14 92 Room Air Physical Exam: General- not in distress, no accessory muscle use Eyes- anicteric Neck- supple, no JVD Lungs- mild scattered rales bilaterally, no wheeze Heart- normal rate, regular rhythm; no murmurs Abdomen- normal bowel sounds, soft, nontender Extremities- no pretibial edema, no calf tenderness Neuro- (+) dementia, no gross focal deficits Skin- warm & dry Laboratory Results: Last 24 Hours Test 07/30/16 11:14 07/30/16 12:25 07/30/16 16:26 07/30/16 18:20 Bedside Glucose 239 mg/dl 203 mg/dl Sodium Level 151 mmol/L 149 mmol/L Potassium Level 3.6 mmol/L 3.4 mmol/L Chloride Level 116 mmol/L 117 mmol/L Carbon Dioxide Level 24 mmol/L 26 mmol/L Anion Gap 11.0 mmol/L 6.0 mmol/L Blood Urea Nitrogen 24 mg/dl 20 mg/dl Creatinine 1.10 mg/dl 1.10 mg/dl Est Creatinine Clear Calc Drug Dose 35.6 ml/min 35.6 ml/min Estimated GFR () 53.4 53.4 Estimated GFR (Non- 46.1 46.1 BUN/Creatinine Ratio 22.2 18.3 Random Glucose 238 mg/dl 245 mg/dl Calcium Level 9.1 mg/dl 8.4 mg/dl Test 07/30/16 20:07 07/31/16 07:53 07/31/16 10:08 Bedside Glucose 216 mg/dl 90 mg/dl Assessment & Plan 86 year old female with history of Dementia, resident of [facility], DM, HTN, HLD presenting with coffee ground emesis. ASPIRATION PNEUMONIA, RIGHT LOWER LOBE pt presents with cough after episode of vomiting this morning -CT + RLL consolidation -blood culture: gram positive cocci sputum cx-pending - repeat CXR today - cont Unasyn Day 3 added Vanco Day 3 for possible gram positive cocci bacteremia continue duonebs and Mucinex - discussed with Pauol he is agreeable for speech therapy eval UTI -urine cx- gram negative bacilli - on Unasyn Day 3 ff up cultures POSSIBLE COFFEE-GROUND EMESIS -1 episode of coffee-ground emesis per documentation from [facility] -Unable to get any history of melena or concerns about fresh red blood in stool -no recurrence so far -Hgb 13.9 to 12.7 repeat Hg pending - continue Protonix 40mg BID IV HYPERNATREMIA - 1/2 NSS started - repeat Na pending - hold fluids for (+) rales SEVERE DEMENTIA -At baseline per INSULIN-DEPENDENT DM 2 - recent A1C 7.1 - on ISS Lantus consulted pharmacy HTN -BP stable -cont Lisinopril -monitor DYSLIPIDEMIA -cont statin DVT PROPHYLAXIS -SCDs only in setting of possible episode of coffee-ground emesis CODE STATUS -FULL CODE per [facility] documentation. Will need to be discussed with family DISPO pending expected to return to [facility] when medically stable Current Inpatient Medications: Current Inpatient Medications Medications (Trade) Dose Ordered Sig/Rolly Route Start Time Stop Time Status Last Admin Dose Admin Ioversol (Optiray 320) 100 ml UD PRN IV 07/29/16 10:45 08/02/16 10:44 Acetaminophen (Tylenol Tab) 650 mg Q4H PRN PO 07/29/16 13:30 08/28/16 13:29 Ondansetron HCl (Zofran Inj) 4 mg Q6H PRN IV 07/29/16 13:30 08/28/16 13:29 Albuterol/ Ipratropium 3 ml 3 ml QIDR INH 07/29/16 16:00 08/28/16 15:59 07/31/16 07:25 3 ML Ampicillin Sodium/ Sulbactam Sodium/ Sodium Chloride (Unasyn Inj/Nss 100ml) 108 ml @ 200 mls/hr Q6H IV 07/29/16 16:00 08/05/16 15:59 07/31/16 04:50 200 MLS/HR Insulin Aspart (novoLOG ASPART) SLIDING SCALE If C... ACHS SC 07/29/16 16:30 08/28/16 16:29 07/30/16 21:23 2 UNITS Glucose (Glucose 40% Gel) 15-30 GRAMS 15 GRAMS... UD PRN PO 07/29/16 14:00 08/28/16 13:59 Glucose (Glucose Chew Tab) 4-8 Tablets 4 Tabl... UD PRN PO 07/29/16 14:00 08/28/16 13:59 Dextrose (Dextrose 50% 50ML Syringe) 25-50ML OF 50% DW IV FOR... UD PRN IV 07/29/16 14:00 08/28/16 13:59 Glucagon (Glucagon Inj) 1 mg UD PRN SQ 07/29/16 14:00 08/28/16 13:59 Atorvastatin Calcium (Lipitor Tab) 40 mg DAILY PO 07/30/16 08:00 08/29/16 08:59 07/31/16 07:33 40 MG Cholecalciferol (Vitamin D Tab) 1,000 inter.unit QAM PO 07/30/16 08:00 08/29/16 08:59 07/31/16 07:33 1,000 INTER.UNIT Lisinopril (Zestril Tab) 40 mg QAM PO 07/30/16 08:00 08/29/16 08:59 07/31/16 07:33 40 MG Memantine (Namenda Tab) 10 mg Q12 PO 07/29/16 21:00 08/28/16 20:59 07/31/16 07:33 10 MG Calcium/Vitamin D (Caltrate Plus Tab) 1 tab BIDM PO 07/29/16 17:00 08/28/16 16:59 07/31/16 07:33 1 TAB Guaifenesin (Robitussin Sugar Free Syrup) 200 mg Q4H PRN PO 07/29/16 16:00 08/28/16 15:59 Miscellaneous Information 1 ea 1 ea UD PRN N/A 07/30/16 13:34 08/29/16 13:33 Pantoprazole Sodium/Syringe (Protonix Inj/ Syringe) 10 ml @ 5 mls/min DAILY@09,21 IV 07/30/16 21:00 08/29/16 20:59 07/31/16 08:29 5 MLS/MIN Vancomycin HCl 1 ea 1 ea UD PRN N/A 07/30/16 13:01 08/29/16 13:00 Vancomycin HCl 1000 mg/Sodium Chloride 270 ml @ 125 mls/hr DAILY@1400 IV 07/31/16 14:00 08/12/16 13:59 Potassium Chloride/Sodium Chloride (1/2 Nss + 20meq KCl 1000ml) 1,000 ml @ 75 mls/hr [id number] IV 07/30/16 21:30 08/29/16 21:29 07/30/16 22:14 75 MLS/HR Insulin Glargine (Lantus Solostar Pen) 10 unit HS SC 07/31/16 21:00 08/30/16 20:59
--- NOTE | 2016-07-31 10:31 | Pharmacy Progress Note ---
Glycemic Control Intl Consult Date of Service Jul 31, 2016. Scope Glycemic Pharmacist consulted by on 07/30/16 for glycemic control and to write orders per [facility] inpatient glycemic control protocol Objective Weight (Kilograms): 67.900 Accuchecks BSG (last 24hrs): Test 07/30/16 11:14 07/30/16 12:25 07/30/16 16:26 07/30/16 18:20 Bedside Glucose 239 mg/dl (70-90) 203 mg/dl (70-90) Random Glucose 238 mg/dl (70-99) 245 mg/dl (70-99) Test 07/30/16 20:07 07/31/16 07:53 07/31/16 10:08 Bedside Glucose 216 mg/dl (70-90) 90 mg/dl (70-90) Laboratory Data (last 24hrs) Test 07/30/16 12:25 07/30/16 18:20 07/31/16 10:08 Anion Gap 11.0 mmol/L 6.0 mmol/L BUN/Creatinine Ratio 22.2 18.3 Blood Urea Nitrogen 24 mg/dl 20 mg/dl Creatinine 1.10 mg/dl 1.10 mg/dl Potassium Level 3.6 mmol/L 3.4 mmol/L Sodium Level 151 mmol/L 149 mmol/L Recent Pertinent Medications Outpatient Anti-diabetic Regimen: * Novolog 6 units BID, Lantus 26 units HS * A1c = 7.1 % from 06/27/16 Risk Factors for Insulin Resistance: * Infection: Vancomycin IV, Unasyn IV * IVF: 1/2 NS + KCl 20 mEq at 75 ml/hr * Diet:DM2 Assessment & Plan ASSESSMENT: Initial: * ADA & AACE recommend a goal blood sugar range 140-180 mg/dl for the majority of critically ill & non-critically ill patients. * 86 y/o type 2 diabetic with adequate glycemic control as an outpatient. * Utilizes basal and bolus insulin * Admitted secondary to infection (pulm vs urinary source) * Hyperglycemia since admission * likely now slightly deficient in basal insulin. 07/30/16 * Fasting BSG elevated today above 140mg/dL and sustained hyperglycemia throughout the day yesterday * add basal insulin to regimen at a reduced regime compared to outpatient dosing secondary to reduced PO intake * NovoLog parameters will need to be more aggressive to more closely match home needs * tighten correction factor and carb ratio, accordingly 07/31/16 * BSGs dropped overnight from 216 mg/dl to 90 mg/dl this morning. * Basal rate too strong * Decrease Lantus dose 30% * Continue Novolog parameters PLAN FOR INPATIENT GLYCEMIC CONTROL: * Decrease Lantus to 10 units SQ HS * Novolog ACHS * Continue correction factor of 35 mg/dl/unit * Continue carb ratio of 1 unit per 12 grams CHO consumed * Set goal range to Low 140 mg/dL - High 180 mg/dL * Please note that the plan above was derived based on current level of insulin resistance and hospital stress. These recommendations are appropriate for inpatient admission only. Plan of care upon discharge will need to be reassessed to avoid potential outpatient hypo/hyperglycemia. Thank you.
[2016-07-31 10:47] LABS: BASO % 0.4 %; BASO ABS # 0.03 K/uL (0-0.2); COMPLETE YES; EOS % 3.9 %; HEMATOCRIT 38.2 % (37-47); IG% 1.4 %; LYMPH % 22.5 %; LYMPH ABS # 1.57 K/uL (1.2-3.4); MEAN CELL VOLUME 88.2 fL (80-100); MEAN CORPUSCULAR HEMOGLOBIN 28.2 pg (25-34); MEAN CORPUSCULAR HGB CONC 31.9 g/dl (32-36); MEAN PLATELET VOLUME 11.4 fL (7.4-10.4); MONO % 9.9 %; NEUT % 61.9 %; PLATELET COUNT 229 K/uL (130-400); RED BLOOD COUNT 4.33 M/uL (4.2-5.4); WHITE BLOOD COUNT 6.98 K/uL (4.8-10.8)
[2016-07-31 11:34] LABS: BUN/CREATININE RATIO 15.5 (10-20); CALCIUM 8.8 mg/dl (8.5-10.1); CREATININE 1.1 mg/dl (0.60-1.20); POTASSIUM 3.6 mmol/L (3.5-5.1)
--- NOTE | 2016-07-31 11:42 | DIAGNOSTIC IMAGING REPORT ---
SINGLE VIEW CHEST CLINICAL HISTORY: Follow-up pneumonia. FINDINGS: An AP, portable, upright chest radiograph is compared to study dated 07/29/2016. The examination is degraded by portable technique and patient rotation. The heart is enlarged and there is atherosclerotic calcification of the thoracic aorta. The pulmonary vasculature is noncongested. Chronic interstitial thickening is unchanged. There are low lung volumes. Bibasilar airspace consolidation and small pleural effusions are similar to previous. No pneumothorax is seen. The skeletal structures are osteopenic. The bony thorax is grossly intact. A right shoulder arthroplasty is in place. Advanced degenerative change is noted in the thoracic spine. Chronic widening is seen at the right acromioclavicular joint. IMPRESSION: 1. Cardiac enlargement without radiographic evidence of congestive failure 2. Bibasilar airspace consolidation and small pleural effusions are identified. Radiographic follow-up to resolution is recommended. 3. Low lung volumes. Electronically signed by: Lalo Gonzalez M.D. 07/31/2016 11:40 AM Dictated Date/Time: 07/31/2016 11:39 AM
[2016-07-31] MEDS ORDERED: VANCOMYCIN INJ 1,000 MG in SODIUM CHLORIDE 0.9% 250ML 250 ML IV SCH (14:00)
[2016-07-31] MEDS: SODIUM CHLOR 0.45% + 20MEQ KCL 1,000 ML IV SCH (17:20)
[2016-07-31] MEDS: CLONIDINE HCL 0.1 MG TAB PO PRN (17:21)
[2016-07-31] MEDS ORDERED: INSULIN GLARGINE SOLOSTAR 100 UNITS/ML 3 ML PEN SC SCH (21:00)
[2016-08-01] VITALS (9 sets, daily range): BP systolic 106–174; BP diastolic 68–89; PULSE 60–85; TEMP 36.3–36.7; O2SAT 92–97
[2016-08-01] MEDS: CLONIDINE HCL 0.1 MG TAB PO PRN (00:21)
[2016-08-01] MEDS: AMPICILLIN/SULBACTAM SOD INJ 3,000 MG in SODIUM CHLORIDE 0.9% 100ML 100 ML IV SCH ×4 (03:54→22:43)
[2016-08-01] MEDS: SODIUM CHLOR 0.45% + 20MEQ KCL 1,000 ML IV SCH (05:50)
[2016-08-01 06:04] LABS: BASO % 0.2 %; BASO ABS # 0.02 K/uL (0-0.2); COMPLETE YES; EOS % 4.5 %; HEMATOCRIT 36.8 % (37-47); IG% 1.4 %; LYMPH % 15.2 %; LYMPH ABS # 1.44 K/uL (1.2-3.4); MEAN CELL VOLUME 86.6 fL (80-100); MEAN CORPUSCULAR HEMOGLOBIN 28.2 pg (25-34); MEAN CORPUSCULAR HGB CONC 32.6 g/dl (32-36); MEAN PLATELET VOLUME 11.4 fL (7.4-10.4); MONO % 6.2 %; NEUT % 72.5 %; PLATELET COUNT 229 K/uL (130-400); RED BLOOD COUNT 4.25 M/uL (4.2-5.4)
[2016-08-01 06:36] LABS: BUN/CREATININE RATIO 12.3 (10-20); CALCIUM 8.3 mg/dl (8.5-10.1); POTASSIUM 3.7 mmol/L (3.5-5.1)
[2016-08-01] MEDS: ALBUT/IPRATROP 3MG/0.5MG NEB 3 ML VIAL INH SCH ×4 (07:46→19:08)
[2016-08-01] MEDS: ATORVASTATIN 40 MG TAB PO SCH (09:05)
[2016-08-01] MEDS: CHOLECALCIFEROL 1000 INTER.UNIT TAB PO SCH (09:05)
[2016-08-01] MEDS: MEMANTINE 10 MG TAB PO SCH ×2 (09:05→21:12)
[2016-08-01] MEDS: PANTOprazole INJ 40 MG in SYRINGE 0 ML IV SCH ×2 (09:05→21:12)
[2016-08-01] MEDS: CALCIUM 600MG + VIT D 400 IU TAB PO SCH ×2 (09:05→17:38)
[2016-08-01] MEDS: LISINOPRIL 40 MG TAB PO SCH (09:05)
[2016-08-01] MEDS: INSULIN ASPART 100 UNITS/ML 3 ML PEN SC SCH ×4 (09:11→21:00)
--- NOTE | 2016-08-01 14:57 | Pharmacy Progress Note ---
Glycemic Control: Progress Nt Date of Service Aug 01, 2016. Scope Glycemic Pharmacist consulted by Dr Smith on 07/30/16 for glycemic control and to write orders per [facility] inpatient glycemic control protocol. Objective Accuchecks BSG (last 24hrs): Test 07/31/16 16:46 07/31/16 20:03 08/01/16 05:20 08/01/16 07:45 Bedside Glucose 146 mg/dl (70-90) 138 mg/dl (70-90) 103 mg/dl (70-90) Random Glucose 103 mg/dl (70-99) Test 08/01/16 11:24 Bedside Glucose 187 mg/dl (70-90) Laboratory Data (last 24hrs) Test 08/01/16 05:20 Anion Gap 6.0 mmol/L BUN/Creatinine Ratio 12.3 Blood Urea Nitrogen 12 mg/dl Creatinine 1.00 mg/dl Potassium Level 3.7 mmol/L Sodium Level 146 mmol/L White Blood Count 9.50 K/uL Red Blood Count 4.25 M/uL Hemoglobin 12.0 g/dL Hematocrit 36.8 % Mean Corpuscular Volume 86.6 fL Mean Corpuscular Hemoglobin 28.2 pg Mean Corpuscular Hemoglobin Concent 32.6 g/dl Platelet Count 229 K/uL Mean Platelet Volume 11.4 fL Neutrophils (%) (Auto) 72.5 % Lymphocytes (%) (Auto) 15.2 % Monocytes (%) (Auto) 6.2 % Eosinophils (%) (Auto) 4.5 % Basophils (%) (Auto) 0.2 % Neutrophils # (Auto) 6.89 K/uL Lymphocytes # (Auto) 1.44 K/uL Monocytes # (Auto) 0.59 K/uL Eosinophils # (Auto) 0.43 K/uL Basophils # (Auto) 0.02 K/uL Recent Pertinent Medications Outpatient Anti-diabetic Regimen: * Lantus 26 units SQ q HS * NovoLog * 6 units SQ with breakfast * 10 units SQ with lunch * 6 units SQ with dinner * A1c = 7.1 % 06/27/16 The patient is currently receiving: * Basal insulin: * Lantus SQ q PM - 15 units on 07/30 - 10 units on 07/31 * Bolus Insulin: * NovoLog Correction per scale AC/HS * Goal Range: Low 140 mg/dL - High 180 mg/dL * Correction Factor: 35 mg/dL/unit * Carb ratio of 1 unit per 12 grams CHO consumed Risk Factors for Insulin Resistance: * Infection: aspiration pneumonia/UTI - current ABX = ampicillin/sulbactam * IVF: 1/2NS + KCl * Diet: T2DM - tolerating well per CHO counts Assessment & Plan ASSESSMENT: Initial: * ADA & AACE recommend a goal blood sugar range 140-180 mg/dl for the majority of critically ill & non-critically ill patients. * 86 y/o type 2 diabetic with adequate glycemic control as an outpatient. * Utilizes basal and bolus insulin * Admitted secondary to infection (pulm vs urinary source) * Hyperglycemia upon admission, however home basal regimen likely too aggressive for inpatient needs 08/01/16 * Fasting BSG again below goal today despite reduction in dose yesterday * Reduce basal insulin today based on a total daily insulin requirement ~14 units * NovoLog parameters may need to be more aggressive as BSGs tend to rise throughout the day (especially prior to lunch) * tighten correction factor and carb ratio, accordingly PLAN FOR INPATIENT GLYCEMIC CONTROL: * Basal insulin: * REDUCE Lantus to 7 units SQ q HS * Bolus insulin: * continue NovoLog AC and HS * Correction factor tighten to 30mg/dL/unit * Carb ratio tighten to 1 unit per 10 g of CHO consumed * Goal range increased to 140-180mg/dL per ADA recommendations * A1c - current RECOMMENDATIONS FOR DISCHARGE: * Likely, the patient can continue home regimen as listed above based on A1c. * Please note that the plan above was derived based on current level of insulin resistance and hospital stress. These recommendations are appropriate for inpatient admission only. Plan of care upon discharge will need to be reassessed to avoid potential outpatient hypo/hyperglycemia. Thank you.
--- NOTE | 2016-08-01 19:32 | Progress Note ---
Medicine Progress Note Date & Time of Visit: Aug 01, 2016 at 19:25. Subjective resting in bed, comfortable awake, confused no shortness of breath, nausea observed no other symptoms Objective Last 8 Hrs Date Time Temp Pulse Resp B/P Pulse Ox O2 Delivery O2 Flow Rate FiO2 08/01/16 19:08 78 16 92 Room Air 08/01/16 16:00 Room Air 08/01/16 15:40 72 16 93 Room Air 08/01/16 15:10 36.3 77 20 106/68 95 Physical Exam: General- not in distress, no accessory muscle use, awake, alert Eyes- anicteric Neck- no JVD Lungs- mild scattered rales bilaterally, no wheeze Heart- normal rate, regular rhythm; no murmurs Abdomen- normal bowel sounds, soft, nontender Extremities- no pretibial edema, no calf tenderness Neuro- (+) dementia, no gross focal deficits Skin- warm & dry Laboratory Results: Last 24 Hours Test 07/31/16 20:03 08/01/16 05:20 08/01/16 07:45 08/01/16 11:24 Bedside Glucose 138 mg/dl 103 mg/dl 187 mg/dl White Blood Count 9.50 K/uL Red Blood Count 4.25 M/uL Hemoglobin 12.0 g/dL Hematocrit 36.8 % Mean Corpuscular Volume 86.6 fL Mean Corpuscular Hemoglobin 28.2 pg Mean Corpuscular Hemoglobin Concent 32.6 g/dl Platelet Count 229 K/uL Mean Platelet Volume 11.4 fL Neutrophils (%) (Auto) 72.5 % Lymphocytes (%) (Auto) 15.2 % Monocytes (%) (Auto) 6.2 % Eosinophils (%) (Auto) 4.5 % Basophils (%) (Auto) 0.2 % Neutrophils # (Auto) 6.89 K/uL Lymphocytes # (Auto) 1.44 K/uL Monocytes # (Auto) 0.59 K/uL Eosinophils # (Auto) 0.43 K/uL Basophils # (Auto) 0.02 K/uL RDW Standard Deviation 43.8 fL RDW Coefficient of Variation 13.9 % Immature Granulocyte % (Auto) 1.4 % Immature Granulocyte # (Auto) 0.13 K/uL Sodium Level 146 mmol/L Potassium Level 3.7 mmol/L Chloride Level 116 mmol/L Carbon Dioxide Level 24 mmol/L Anion Gap 6.0 mmol/L Blood Urea Nitrogen 12 mg/dl Creatinine 1.00 mg/dl Est Creatinine Clear Calc Drug Dose 39.2 ml/min Estimated GFR () 59.9 Estimated GFR (Non- 51.7 BUN/Creatinine Ratio 12.3 Random Glucose 103 mg/dl Calcium Level 8.3 mg/dl Test 08/01/16 16:34 08/01/16 19:22 Bedside Glucose 182 mg/dl Assessment & Plan 86 year old female with history of Dementia, resident of [facility], DM, HTN, HLD presenting with coffee ground emesis. ASPIRATION PNEUMONIA, RIGHT LOWER LOBE pt presents with cough after episode of vomiting -CT + RLL consolidation -blood culture: 1 out of 2 bottles coag neg staph, likely contaminant sputum cx-pending - cont Unasyn Day 4 added Vanco Day 3 for possible gram positive cocci bacteremia --> discontinued continue duonebs and Mucinex - discussed with Paulo he is agreeable for speech therapy eval: pureed diet with thick liquids UTI -urine cx- Proteus, pansensitive - on Unasyn Day 4 POSSIBLE COFFEE-GROUND EMESIS -1 episode of coffee-ground emesis per documentation from [facility] -Unable to get any history of melena or concerns about fresh red blood in stool -no recurrence so far -Hgb 13.9 to 12.7 -Hg stable ~12 - continue Protonix 40mg BID IV will need Protonix 40mg po BID patient's would like to treat her medically for now, declines EGD HYPERNATREMIA - 1/2 NSS started - repeat Na 146 repeat tonight hold IV fluids SEVERE DEMENTIA -At baseline per INSULIN-DEPENDENT DM 2 - recent A1C 7.1 - on ISS Lantus consulted pharmacy HTN -BP stable -cont Lisinopril -monitor DYSLIPIDEMIA -cont statin DVT PROPHYLAXIS -SCDs only in setting of possible episode of coffee-ground emesis CODE STATUS -FULL CODE per [facility] documentation. Will need to be discussed with family DISPO pending expected to return to [facility] when medically stable Current Inpatient Medications: Current Inpatient Medications Medications (Trade) Dose Ordered Sig/Rolly Route Start Time Stop Time Status Last Admin Dose Admin Ioversol (Optiray 320) 100 ml UD PRN IV 07/29/16 10:45 08/02/16 10:44 Acetaminophen (Tylenol Tab) 650 mg Q4H PRN PO 07/29/16 13:30 08/28/16 13:29 Ondansetron HCl (Zofran Inj) 4 mg Q6H PRN IV 07/29/16 13:30 08/28/16 13:29 Albuterol/ Ipratropium 3 ml 3 ml QIDR INH 07/29/16 16:00 08/28/16 15:59 08/01/16 19:08 3 ML Ampicillin Sodium/ Sulbactam Sodium/ Sodium Chloride (Unasyn Inj/Nss 100ml) 108 ml @ 200 mls/hr Q6H IV 07/29/16 16:00 08/05/16 15:59 08/01/16 17:37 200 MLS/HR Insulin Aspart (novoLOG ASPART) SLIDING SCALE If C... ACHS SC 07/29/16 16:30 08/28/16 16:29 08/01/16 17:43 5 UNITS Glucose (Glucose 40% Gel) 15-30 GRAMS 15 GRAMS... UD PRN PO 07/29/16 14:00 08/28/16 13:59 Glucose (Glucose Chew Tab) 4-8 Tablets 4 Tabl... UD PRN PO 07/29/16 14:00 08/28/16 13:59 Dextrose (Dextrose 50% 50ML Syringe) 25-50ML OF 50% DW IV FOR... UD PRN IV 07/29/16 14:00 08/28/16 13:59 Glucagon (Glucagon Inj) 1 mg UD PRN SQ 07/29/16 14:00 08/28/16 13:59 Atorvastatin Calcium (Lipitor Tab) 40 mg DAILY PO 07/30/16 08:00 08/29/16 08:59 08/01/16 09:05 40 MG Cholecalciferol (Vitamin D Tab) 1,000 inter.unit QAM PO 07/30/16 08:00 08/29/16 08:59 08/01/16 09:05 1,000 INTER.UNIT Lisinopril (Zestril Tab) 40 mg QAM PO 07/30/16 08:00 08/29/16 08:59 08/01/16 09:05 40 MG Memantine (Namenda Tab) 10 mg Q12 PO 07/29/16 21:00 08/28/16 20:59 08/01/16 09:05 10 MG Calcium/Vitamin D (Caltrate Plus Tab) 1 tab BIDM PO 07/29/16 17:00 08/28/16 16:59 08/01/16 17:38 1 TAB Guaifenesin (Robitussin Sugar Free Syrup) 200 mg Q4H PRN PO 07/29/16 16:00 08/28/16 15:59 Miscellaneous Information 1 ea 1 ea UD PRN N/A 07/30/16 13:34 08/29/16 13:33 Pantoprazole Sodium/Syringe (Protonix Inj/ Syringe) 10 ml @ 5 mls/min DAILY@09,21 IV 07/30/16 21:00 08/29/16 20:59 08/01/16 09:05 5 MLS/MIN Clonidine HCl (Catapres Tab) 0.1 mg Q6H PRN PO 07/31/16 16:45 08/30/16 16:44 08/01/16 00:21 0.1 MG Insulin Glargine (Lantus Solostar Pen) 7 unit HS SC 08/01/16 21:00 08/31/16 20:59
[2016-08-01 20:51] LABS: BUN/CREATININE RATIO 11.6 (10-20); CALCIUM 8.3 mg/dl (8.5-10.1); CREATININE 1.3 mg/dl (0.60-1.20); POTASSIUM 4.1 mmol/L (3.5-5.1)
[2016-08-01] MEDS: INSULIN GLARGINE SOLOSTAR 100 UNITS/ML 3 ML PEN SC SCH (21:13)
--- NOTE | 2016-08-01 22:09 | DIAGNOSTIC IMAGING REPORT ---
RIGHT UPPER EXTREMITY VENOUS DOPPLER CLINICAL HISTORY: Right arm swelling. COMPARISON STUDY: No previous studies for comparison. FINDINGS: The right internal jugular, subclavian, axillary, brachial, basilic, cephalic, radial and ulnar veins are patent. IMPRESSION: No deep venous thrombus within the right upper extremity. Electronically signed by: Jack Faustin M.D. 08/01/2016 10:07 PM Dictated Date/Time: 08/01/2016 10:07 PM
[2016-08-02] VITALS (8 sets, daily range): BP systolic 152–187; BP diastolic 70–89; PULSE 69–99; TEMP 36.5–37; O2SAT 94–99
[2016-08-02] MEDS: AMPICILLIN/SULBACTAM SOD INJ 3,000 MG in SODIUM CHLORIDE 0.9% 100ML 100 ML IV SCH ×4 (03:47→21:23)
[2016-08-02 06:08] LABS: BASO % 0.1 %; BASO ABS # 0.01 K/uL (0-0.2); COMPLETE YES; EOS % 4.7 %; HEMATOCRIT 35.8 % (37-47); LYMPH ABS # 1.25 K/uL (1.2-3.4); MEAN CELL VOLUME 86.1 fL (80-100); MEAN CORPUSCULAR HEMOGLOBIN 27.9 pg (25-34); MEAN CORPUSCULAR HGB CONC 32.4 g/dl (32-36); MEAN PLATELET VOLUME 10.9 fL (7.4-10.4); MONO % 5.9 %; NEUT % 72.3 %; PLATELET COUNT 208 K/uL (130-400); RED BLOOD COUNT 4.16 M/uL (4.2-5.4); WHITE BLOOD COUNT 7.82 K/uL (4.8-10.8)
[2016-08-02 06:40] LABS: CALCIUM 8.3 mg/dl (8.5-10.1); CREATININE 1.1 mg/dl (0.60-1.20); POTASSIUM 3.9 mmol/L (3.5-5.1)
[2016-08-02] MEDS: ALBUT/IPRATROP 3MG/0.5MG NEB 3 ML VIAL INH SCH ×4 (07:46→19:02)
[2016-08-02] MEDS: PANTOprazole INJ 40 MG in SYRINGE 0 ML IV SCH ×2 (08:05→21:15)
[2016-08-02] MEDS: CALCIUM 600MG + VIT D 400 IU TAB PO SCH ×2 (08:06→17:24)
[2016-08-02] MEDS: MEMANTINE 10 MG TAB PO SCH ×2 (08:06→21:15)
[2016-08-02] MEDS: CHOLECALCIFEROL 1000 INTER.UNIT TAB PO SCH (08:06)
[2016-08-02] MEDS: LISINOPRIL 40 MG TAB PO SCH (08:06)
[2016-08-02] MEDS: ATORVASTATIN 40 MG TAB PO SCH (08:06)
[2016-08-02] MEDS: INSULIN ASPART 100 UNITS/ML 3 ML PEN SC SCH ×4 (10:09→20:59)
--- NOTE | 2016-08-02 13:15 | Progress Note ---
Medicine Progress Note Date & Time of Visit: Aug 02, 2016 at 13:09. Subjective patient seen resting in bed, alert, awake tolerating diet well, no nausea/vomiting no signs of respiratory distress or pain difficult to perform ROS as patient has dementia Objective Last 8 Hrs Date Time Temp Pulse Resp B/P Pulse Ox O2 Delivery O2 Flow Rate FiO2 08/02/16 11:51 76 16 95 Room Air 08/02/16 08:00 Room Air 08/02/16 07:46 72 16 96 Room Air 08/02/16 07:18 36.6 69 20 157/84 97 Physical Exam: General- not in distress, no accessory muscle use, awake, alert Lungs- occasional rhonchi bilaterally, no wheezing Heart- normal rate, regular rhythm; no murmurs Abdomen- normal bowel sounds, soft, nontender Extremities- no pretibial edema, no calf tenderness Neuro- (+) dementia, no gross focal deficits Skin- warm & dry Laboratory Results: Last 24 Hours Test 08/01/16 16:34 08/01/16 20:05 08/01/16 20:20 08/02/16 05:41 Bedside Glucose 182 mg/dl 167 mg/dl Sodium Level 147 mmol/L 147 mmol/L Potassium Level 4.1 mmol/L 3.9 mmol/L Chloride Level 116 mmol/L 114 mmol/L Carbon Dioxide Level 22 mmol/L 23 mmol/L Anion Gap 9.0 mmol/L 10.0 mmol/L Blood Urea Nitrogen 15 mg/dl 13 mg/dl Creatinine 1.30 mg/dl 1.10 mg/dl Est Creatinine Clear Calc Drug Dose 30.2 ml/min 35.6 ml/min Estimated GFR () 43.6 53.4 Estimated GFR (Non- 37.6 46.1 BUN/Creatinine Ratio 11.6 12.0 Random Glucose 165 mg/dl 151 mg/dl Calcium Level 8.3 mg/dl 8.3 mg/dl White Blood Count 7.82 K/uL Red Blood Count 4.16 M/uL Hemoglobin 11.6 g/dL Hematocrit 35.8 % Mean Corpuscular Volume 86.1 fL Mean Corpuscular Hemoglobin 27.9 pg Mean Corpuscular Hemoglobin Concent 32.4 g/dl Platelet Count 208 K/uL Mean Platelet Volume 10.9 fL Neutrophils (%) (Auto) 72.3 % Lymphocytes (%) (Auto) 16.0 % Monocytes (%) (Auto) 5.9 % Eosinophils (%) (Auto) 4.7 % Basophils (%) (Auto) 0.1 % Neutrophils # (Auto) 5.65 K/uL Lymphocytes # (Auto) 1.25 K/uL Monocytes # (Auto) 0.46 K/uL Eosinophils # (Auto) 0.37 K/uL Basophils # (Auto) 0.01 K/uL RDW Standard Deviation 43.6 fL RDW Coefficient of Variation 13.8 % Immature Granulocyte % (Auto) 1.0 % Immature Granulocyte # (Auto) 0.08 K/uL Test 08/02/16 07:31 08/02/16 11:23 Bedside Glucose 135 mg/dl 185 mg/dl Assessment & Plan 86 year old female with history of Dementia, resident of [facility], DM, HTN, HLD presenting with coffee ground emesis. ASPIRATION PNEUMONIA, RIGHT LOWER LOBE pt presents with cough after episode of vomiting -CT + RLL consolidation -blood culture: 1 out of 2 bottles coag neg staph, likely contaminant - cont Unasyn Day 5 continue duonebs and Mucinex added Vanco Day 3 for possible gram positive cocci bacteremia --> discontinued - speech therapy eval: pureed diet with thick liquids UTI - afebrile, no leukocytosis -urine cx- Proteus, pansensitive - on Unasyn Day 5 POSSIBLE COFFEE-GROUND EMESIS -1 episode of coffee-ground emesis per documentation from [facility] -Unable to get any history of melena or concerns about fresh red blood in stool -no recurrence so far -Hgb 13.9 to 11.6 -Hg stable ~12 - continue Protonix 40mg BID IV will need Protonix 40mg po BID patient's would like to treat her medically for now, declines EGD HYPERNATREMIA - 1/2 NSS started - repeat Na 147 - resume 1/2 Nss SEVERE DEMENTIA -At baseline per INSULIN-DEPENDENT DM 2 - recent A1C 7.1 - on ISS Lantus consulted pharmacy HTN -BP stable -cont Lisinopril -monitor DYSLIPIDEMIA -cont statin DVT PROPHYLAXIS -SCDs only in setting of possible episode of coffee-ground emesis CODE STATUS -FULL CODE per DISPO pending expected to return to [facility] when medically stable Current Inpatient Medications: Current Inpatient Medications Medications (Trade) Dose Ordered Sig/Rolly Route Start Time Stop Time Status Last Admin Dose Admin Acetaminophen (Tylenol Tab) 650 mg Q4H PRN PO 07/29/16 13:30 08/28/16 13:29 Ondansetron HCl (Zofran Inj) 4 mg Q6H PRN IV 07/29/16 13:30 08/28/16 13:29 Albuterol/ Ipratropium 3 ml 3 ml QIDR INH 07/29/16 16:00 08/28/16 15:59 08/02/16 11:51 3 ML Ampicillin Sodium/ Sulbactam Sodium/ Sodium Chloride (Unasyn Inj/Nss 100ml) 108 ml @ 200 mls/hr Q6H IV 07/29/16 16:00 08/05/16 15:59 08/02/16 10:07 200 MLS/HR Insulin Aspart (novoLOG ASPART) SLIDING SCALE If C... ACHS SC 07/29/16 16:30 08/28/16 16:29 08/02/16 13:04 7 UNITS Glucose (Glucose 40% Gel) 15-30 GRAMS 15 GRAMS... UD PRN PO 07/29/16 14:00 08/28/16 13:59 Glucose (Glucose Chew Tab) 4-8 Tablets 4 Tabl... UD PRN PO 07/29/16 14:00 08/28/16 13:59 Dextrose (Dextrose 50% 50ML Syringe) 25-50ML OF 50% DW IV FOR... UD PRN IV 07/29/16 14:00 08/28/16 13:59 Glucagon (Glucagon Inj) 1 mg UD PRN SQ 07/29/16 14:00 08/28/16 13:59 Atorvastatin Calcium (Lipitor Tab) 40 mg DAILY PO 07/30/16 08:00 08/29/16 08:59 08/02/16 08:06 40 MG Cholecalciferol (Vitamin D Tab) 1,000 inter.unit QAM PO 07/30/16 08:00 08/29/16 08:59 08/02/16 08:06 1,000 INTER.UNIT Lisinopril (Zestril Tab) 40 mg QAM PO 07/30/16 08:00 08/29/16 08:59 08/02/16 08:06 40 MG Memantine (Namenda Tab) 10 mg Q12 PO 07/29/16 21:00 08/28/16 20:59 08/02/16 08:06 10 MG Calcium/Vitamin D (Caltrate Plus Tab) 1 tab BIDM PO 07/29/16 17:00 08/28/16 16:59 08/02/16 08:06 1 TAB Guaifenesin (Robitussin Sugar Free Syrup) 200 mg Q4H PRN PO 07/29/16 16:00 08/28/16 15:59 Miscellaneous Information 1 ea 1 ea UD PRN N/A 07/30/16 13:34 08/29/16 13:33 Pantoprazole Sodium/Syringe (Protonix Inj/ Syringe) 10 ml @ 5 mls/min DAILY@09,21 IV 07/30/16 21:00 08/29/16 20:59 08/02/16 08:05 5 MLS/MIN Clonidine HCl (Catapres Tab) 0.1 mg Q6H PRN PO 07/31/16 16:45 08/30/16 16:44 08/01/16 00:21 0.1 MG Insulin Glargine (Lantus Solostar Pen) 7 unit HS SC 08/01/16 21:00 08/31/16 20:59 08/01/16 21:13 7 UNIT
[2016-08-02] MEDS ORDERED: VANCOMYCIN TROUGH SCH (13:30)
[2016-08-02] MEDS: SODIUM CHLOR 0.45% + 20MEQ KCL 1,000 ML IV SCH (14:33)
[2016-08-02] MEDS: INSULIN GLARGINE SOLOSTAR 100 UNITS/ML 3 ML PEN SC SCH (21:44)
[2016-08-03] MEDS: SODIUM CHLOR 0.45% + 20MEQ KCL 1,000 ML IV SCH ×2 (03:44→15:47)
[2016-08-03] MEDS: AMPICILLIN/SULBACTAM SOD INJ 3,000 MG in SODIUM CHLORIDE 0.9% 100ML 100 ML IV SCH ×4 (03:46→22:26)
[2016-08-03 07:01] LABS: BASO % 0.3 %; BASO ABS # 0.02 K/uL (0-0.2); COMPLETE YES; EOS % 3.6 %; HEMATOCRIT 35.7 % (37-47); IG% 1.1 %; LYMPH % 19.6 %; LYMPH ABS # 1.54 K/uL (1.2-3.4); MEAN CORPUSCULAR HEMOGLOBIN 27.5 pg (25-34); MEAN CORPUSCULAR HGB CONC 31.9 g/dl (32-36); MEAN PLATELET VOLUME 11.3 fL (7.4-10.4); MONO % 6.8 %; NEUT % 68.6 %; PLATELET COUNT 223 K/uL (130-400); RED BLOOD COUNT 4.15 M/uL (4.2-5.4); WHITE BLOOD COUNT 7.85 K/uL (4.8-10.8)
[2016-08-03] MEDS: CALCIUM 600MG + VIT D 400 IU TAB PO SCH ×2 (07:36→17:35)
[2016-08-03] MEDS: MEMANTINE 10 MG TAB PO SCH ×2 (07:37→21:02)
[2016-08-03] MEDS: CHOLECALCIFEROL 1000 INTER.UNIT TAB PO SCH (07:37)
[2016-08-03] MEDS: ATORVASTATIN 40 MG TAB PO SCH (07:38)
[2016-08-03] MEDS: LISINOPRIL 40 MG TAB PO SCH (07:38)
[2016-08-03 07:39] LABS: BUN/CREATININE RATIO 9.6 (10-20); CALCIUM 8.2 mg/dl (8.5-10.1); CREATININE 1.1 mg/dl (0.60-1.20); POTASSIUM 3.9 mmol/L (3.5-5.1)
[2016-08-03 08:05] VITALS: PULSE 69; O2SAT 96
[2016-08-03] MEDS: ALBUT/IPRATROP 3MG/0.5MG NEB 3 ML VIAL INH SCH ×4 (08:05→19:07)
[2016-08-03] MEDS: INSULIN ASPART 100 UNITS/ML 3 ML PEN SC SCH ×4 (08:34→21:00)
[2016-08-03] MEDS: PANTOprazole INJ 40 MG in SYRINGE 0 ML IV SCH ×2 (09:17→21:02)
[2016-08-03 11:00] VITALS: PULSE 73; O2SAT 95
[2016-08-03 15:24] VITALS: PULSE 78; O2SAT 93
[2016-08-03 15:40] LABS: BUN/CREATININE RATIO 7.9 (10-20); CALCIUM 8.4 mg/dl (8.5-10.1); CREATININE 1.3 mg/dl (0.60-1.20); POTASSIUM 4.3 mmol/L (3.5-5.1)
--- NOTE | 2016-08-03 15:59 | Progress Note ---
Medicine Progress Note Date & Time of Visit: Aug 03, 2016 at 15:55. Subjective seen sitting up in bed, alert, pleasantly confused no signs of pain, dyspnea appetite ok no diarrhea no other symptoms noted Objective Last 8 Hrs Date Time Temp Pulse Resp B/P Pulse Ox O2 Delivery O2 Flow Rate FiO2 08/03/16 15:24 78 16 93 Room Air 08/03/16 15:15 Room Air 08/03/16 11:00 73 16 95 Room Air 08/03/16 08:05 69 16 96 Room Air 08/03/16 08:00 Room Air Physical Exam: General- not in distress, no accessory muscle use, awake, alert Lungs- clear breath sounds bilaterally, no wheezing Heart- normal rate, regular rhythm; no murmurs Abdomen- normal bowel sounds, soft, nontender Extremities- no pretibial edema, no calf tenderness Neuro- (+) dementia, no gross focal deficits Skin- warm & dry Laboratory Results: Last 24 Hours Test 08/02/16 16:10 08/02/16 20:28 08/03/16 05:50 08/03/16 07:55 Bedside Glucose 156 mg/dl 165 mg/dl 117 mg/dl White Blood Count 7.85 K/uL Red Blood Count 4.15 M/uL Hemoglobin 11.4 g/dL Hematocrit 35.7 % Mean Corpuscular Volume 86.0 fL Mean Corpuscular Hemoglobin 27.5 pg Mean Corpuscular Hemoglobin Concent 31.9 g/dl Platelet Count 223 K/uL Mean Platelet Volume 11.3 fL Neutrophils (%) (Auto) 68.6 % Lymphocytes (%) (Auto) 19.6 % Monocytes (%) (Auto) 6.8 % Eosinophils (%) (Auto) 3.6 % Basophils (%) (Auto) 0.3 % Neutrophils # (Auto) 5.39 K/uL Lymphocytes # (Auto) 1.54 K/uL Monocytes # (Auto) 0.53 K/uL Eosinophils # (Auto) 0.28 K/uL Basophils # (Auto) 0.02 K/uL RDW Standard Deviation 43.9 fL RDW Coefficient of Variation 14.0 % Immature Granulocyte % (Auto) 1.1 % Immature Granulocyte # (Auto) 0.09 K/uL Sodium Level 148 mmol/L Potassium Level 3.9 mmol/L Chloride Level 115 mmol/L Carbon Dioxide Level 23 mmol/L Anion Gap 10.0 mmol/L Blood Urea Nitrogen 11 mg/dl Creatinine 1.10 mg/dl Est Creatinine Clear Calc Drug Dose 35.6 ml/min Estimated GFR () 53.4 Estimated GFR (Non- 46.1 BUN/Creatinine Ratio 9.6 Random Glucose 128 mg/dl Calcium Level 8.2 mg/dl Test 08/03/16 11:39 08/03/16 15:02 Bedside Glucose 121 mg/dl Sodium Level 147 mmol/L Potassium Level 4.3 mmol/L Chloride Level 113 mmol/L Carbon Dioxide Level 24 mmol/L Anion Gap 10.0 mmol/L Blood Urea Nitrogen 10 mg/dl Creatinine 1.30 mg/dl Est Creatinine Clear Calc Drug Dose 30.2 ml/min Estimated GFR () 43.6 Estimated GFR (Non- 37.6 BUN/Creatinine Ratio 7.9 Random Glucose 227 mg/dl Calcium Level 8.4 mg/dl Assessment & Plan 86 year old female with history of Dementia, resident of [facility], DM, HTN, HLD presenting with coffee ground emesis. ASPIRATION PNEUMONIA, RIGHT LOWER LOBE - pt presents with cough after episode of vomiting -CT (+) RLL consolidation - blood culture: 1 out of 2 bottles coag neg staph, likely contaminant - cont Unasyn Day 6 continue duonebs and Mucinex added Vanco Day 3 for possible gram positive cocci bacteremia --> discontinued - speech therapy eval: pureed diet with thick liquids UTI - afebrile, no leukocytosis -urine cx- Proteus, pansensitive - on Unasyn Day 6 POSSIBLE COFFEE-GROUND EMESIS -1 episode of coffee-ground emesis per documentation from [facility] -Unable to get any history of melena or concerns about fresh red blood in stool -no recurrence so far -Hgb 13.9 to 11.6 -Hg stable ~11-12 - continue Protonix 40mg BID IV will need Protonix 40mg po BID patient's would like to treat her medically for now, declines EGD HYPERNATREMIA - 1/2 NSS started - repeat Na 147 - continue 1/2 Nss unasyn to be diluted in d5 will monitor SEVERE DEMENTIA -At baseline per INSULIN-DEPENDENT DM 2 - recent A1C 7.1 - on ISS Lantus consulted pharmacy HTN -BP stable -cont Lisinopril -monitor DYSLIPIDEMIA -cont statin DVT PROPHYLAXIS -SCDs only in setting of possible episode of coffee-ground emesis CODE STATUS -FULL CODE per DISPO pending expected to return to [facility] tomorrow Current Inpatient Medications: Current Inpatient Medications Medications (Trade) Dose Ordered Sig/Rolly Route Start Time Stop Time Status Last Admin Dose Admin Acetaminophen (Tylenol Tab) 650 mg Q4H PRN PO 07/29/16 13:30 08/28/16 13:29 Ondansetron HCl (Zofran Inj) 4 mg Q6H PRN IV 07/29/16 13:30 08/28/16 13:29 Albuterol/ Ipratropium 3 ml 3 ml QIDR INH 07/29/16 16:00 08/28/16 15:59 08/03/16 15:24 3 ML Ampicillin Sodium/ Sulbactam Sodium/ Sodium Chloride (Unasyn Inj/Nss 100ml) 108 ml @ 200 mls/hr Q6H IV 07/29/16 16:00 08/05/16 15:59 08/03/16 09:18 200 MLS/HR Insulin Aspart (novoLOG ASPART) SLIDING SCALE If C... ACHS SC 07/29/16 16:30 08/28/16 16:29 08/02/16 17:39 5 UNITS Glucose (Glucose 40% Gel) 15-30 GRAMS 15 GRAMS... UD PRN PO 07/29/16 14:00 08/28/16 13:59 Glucose (Glucose Chew Tab) 4-8 Tablets 4 Tabl... UD PRN PO 07/29/16 14:00 08/28/16 13:59 Dextrose (Dextrose 50% 50ML Syringe) 25-50ML OF 50% DW IV FOR... UD PRN IV 07/29/16 14:00 08/28/16 13:59 Glucagon (Glucagon Inj) 1 mg UD PRN SQ 07/29/16 14:00 08/28/16 13:59 Atorvastatin Calcium (Lipitor Tab) 40 mg DAILY PO 07/30/16 08:00 08/29/16 08:59 08/03/16 07:38 40 MG Cholecalciferol (Vitamin D Tab) 1,000 inter.unit QAM PO 07/30/16 08:00 08/29/16 08:59 08/03/16 07:37 1,000 INTER.UNIT Lisinopril (Zestril Tab) 40 mg QAM PO 07/30/16 08:00 08/29/16 08:59 08/03/16 07:38 40 MG Memantine (Namenda Tab) 10 mg Q12 PO 07/29/16 21:00 08/28/16 20:59 08/03/16 07:37 10 MG Calcium/Vitamin D (Caltrate Plus Tab) 1 tab BIDM PO 07/29/16 17:00 08/28/16 16:59 08/03/16 07:36 1 TAB Guaifenesin 200 mg 200 mg Q4H PRN PO 07/29/16 16:00 08/28/16 15:59 Pantoprazole Sodium/Syringe (Protonix Inj/ Syringe) 10 ml @ 5 mls/min DAILY@09,21 IV 07/30/16 21:00 08/29/16 20:59 08/03/16 09:17 5 MLS/MIN Clonidine HCl (Catapres Tab) 0.1 mg Q6H PRN PO 07/31/16 16:45 08/30/16 16:44 08/01/16 00:21 0.1 MG Insulin Glargine 7 unit 7 unit HS SC 08/01/16 21:00 08/31/16 20:59 08/02/16 21:44 7 UNIT Potassium Chloride/Sodium Chloride (1/2 Nss + 20meq KCl 1000ml) 1,000 ml @ 100 mls/hr Q10H IV 08/02/16 14:15 08/03/16 15:47 100 MLS/HR
[2016-08-03 16:15] VITALS: BP 159/61; PULSE 91; TEMP 36.5; O2SAT 96
[2016-08-03 19:07] VITALS: PULSE 72; O2SAT 94
[2016-08-03] MEDS: INSULIN GLARGINE SOLOSTAR 100 UNITS/ML 3 ML PEN SC SCH (21:04)
[2016-08-04] VITALS (8 sets, daily range): BP systolic 155–175; BP diastolic 78–95; PULSE 70–91; TEMP 36.6–36.8; O2SAT 95–98
[2016-08-04] MEDS: SODIUM CHLOR 0.45% + 20MEQ KCL 1,000 ML IV SCH ×2 (00:35→11:11)
[2016-08-04] MEDS: AMPICILLIN/SULBACTAM SOD INJ 3,000 MG in SODIUM CHLORIDE 0.9% 100ML 100 ML IV SCH (03:59)
[2016-08-04] MEDS: ALBUT/IPRATROP 3MG/0.5MG NEB 3 ML VIAL INH SCH ×3 (07:00→15:33)
[2016-08-04 07:52] LABS: BUN/CREATININE RATIO 6.4 (10-20); CALCIUM 8.6 mg/dl (8.5-10.1); CREATININE 1.1 mg/dl (0.60-1.20); POTASSIUM 4.1 mmol/L (3.5-5.1)
[2016-08-04] MEDS: PANTOprazole INJ 40 MG in SYRINGE 0 ML IV SCH (08:57)
[2016-08-04] MEDS: CHOLECALCIFEROL 1000 INTER.UNIT TAB PO SCH (08:57)
[2016-08-04] MEDS: ATORVASTATIN 40 MG TAB PO SCH (08:58)
[2016-08-04] MEDS: MEMANTINE 10 MG TAB PO SCH (08:58)
[2016-08-04] MEDS: CALCIUM 600MG + VIT D 400 IU TAB PO SCH ×2 (08:58→18:05)
[2016-08-04] MEDS: LISINOPRIL 40 MG TAB PO SCH (08:58)
[2016-08-04] MEDS: INSULIN ASPART 100 UNITS/ML 3 ML PEN SC SCH ×3 (09:00→18:07)
[2016-08-04] MEDS: DEXTROSE 5% IV SCH ×2 (09:39→15:57)
[2016-08-04] MEDS: SULBACTAM SOD IV SCH ×2 (09:39→15:57)
[2016-08-04] MEDS: AMPICILLIN IV SCH ×2 (09:39→15:57)
--- NOTE | 2016-08-04 15:33 | Progress Note ---
Medicine Progress Note Date & Time of Visit: August 04, 2016 at 15:26. Subjective patient seen resting in bed, comfortable awake alert pleasantly confused no signs of distress, pain no other signs Objective Last 8 Hrs Date Time Temp Pulse Resp B/P Pulse Ox O2 Delivery O2 Flow Rate FiO2 08/04/16 11:15 75 16 97 Room Air 08/04/16 08:40 70 155/78 08/04/16 08:35 Room Air Physical Exam: General- not in distress, no accessory muscle use, awake, alert, pleasant Lungs- clear breath sounds bilaterally, no wheezes/rales Heart- normal rate, regular rhythm; no murmurs Abdomen- normal bowel sounds, soft, nontender Extremities- no pretibial edema, no calf tenderness Neuro- (+) dementia, no gross focal deficits Skin- warm & dry Laboratory Results: Last 24 Hours Test 08/03/16 16:53 08/03/16 20:04 08/04/16 06:45 08/04/16 07:53 Bedside Glucose 207 mg/dl 123 mg/dl 104 mg/dl Sodium Level 147 mmol/L Potassium Level 4.1 mmol/L Chloride Level 115 mmol/L Carbon Dioxide Level 23 mmol/L Anion Gap 9.0 mmol/L Blood Urea Nitrogen 7 mg/dl Creatinine 1.10 mg/dl Est Creatinine Clear Calc Drug Dose 35.6 ml/min Estimated GFR () 53.4 Estimated GFR (Non- 46.1 BUN/Creatinine Ratio 6.4 Random Glucose 107 mg/dl Calcium Level 8.6 mg/dl Test 08/04/16 11:40 Bedside Glucose 150 mg/dl Assessment & Plan 86 year old female with history of Dementia, resident of [facility], DM, HTN, HLD presenting with coffee ground emesis. ASPIRATION PNEUMONIA, RIGHT LOWER LOBE HIGH ASPIRATION RISK - pt presents with cough after episode of vomiting -CT (+) RLL consolidation - blood culture: 1 out of 2 bottles coag neg staph, likely contaminant - received 7 days of Unasyn Day 6 also given scheduled duonebs and Mucinex added Vanco Day 3 for possible gram positive cocci bacteremia but was discontinued as final blood culture reveal this is a contaminant - continue Duonebs, wean off accordingly monitor respiratory status - speech therapy recommendations: * This patient has advanced dementia. She is a HIGH ASPIRATION RISK with any oral intake--especially in combination with her current pulmonary status. She is already on a modified diet (pureed). CERTIFIED MEDICAL CODER recommendation is: 1. Pureed diet with water-based thin liquids (eg, water, coffee, tea) 2. Stringent oral hygiene protocol: Clean ALL surfaces of mouth and dentures with toothbrush and toothpaste PRIOR TO any oral intake in the morning, after all meals, and prior to going to bed for the night 3. General aspiration precautions: fully upright, alternate consistencies, remain upright after meals for 20-30 minutes, keep head of bed elevated at least 30-degrees at ALL times 4. Consideration of review of Code Status and completion of POLST given patient's advancing dementia and likely recurrent aspiration 5. VFSS only if patient POA insists prior to making decisions about feeding patient. If the patient's family/POA wishes to use thickened liquids in an attempt to minimize aspiration even more, then can try NECTAR THICK liquids. However, there is no guarantee that the patient will not eventually aspirate these and then the patient is also aspirating thickener. If oral intake will be discontinued then the question will be hospice vs. enteral feeding. Again, completion of POLST should be considered if not already done. UTI , Proteus - remained afebrile, no leukocytosis -urine cx- Proteus, pansensitive - received Unasyn x 7 days - continue Augmentin x 3 more days to complete 10 day course POSSIBLE COFFEE-GROUND EMESIS -1 episode of coffee-ground emesis per documentation from [facility] -Unable to get any history of melena or concerns about fresh red blood in stool -no recurrence so far -Hg stable ~11-12 - was given Protonix 40mg BID IV patient's would like to treat her medically for now, declines EGD - discharge on Protonix 40mg po BID monitor Hg titrate Protonix accordingly HYPERNATREMIA - initially Na 152 given 1/2 NSS - repeat Na 147 - continue to monitor Na closely repeat Na in 2-3 days, then regularly encourage increase water intake SEVERE DEMENTIA -At baseline per INSULIN-DEPENDENT DM 2 - recent A1C 7.1 - continue usual Lantus and Aspart HTN -BP stable -cont Lisinopril DYSLIPIDEMIA -cont statin DVT PROPHYLAXIS -SCDs only in setting of possible episode of coffee-ground emesis CODE STATUS -FULL CODE per DISPO d/c to [facility] ff up with PCP in 1 week Current Inpatient Medications: Current Inpatient Medications Medications (Trade) Dose Ordered Sig/Rolly Route Start Time Stop Time Status Last Admin Dose Admin Acetaminophen (Tylenol Tab) 650 mg Q4H PRN PO 07/29/16 13:30 08/28/16 13:29 Ondansetron HCl (Zofran Inj) 4 mg Q6H PRN IV 07/29/16 13:30 08/28/16 13:29 Albuterol/ Ipratropium (Duoneb) 3 ml QIDR INH 07/29/16 16:00 08/28/16 15:59 08/04/16 11:15 3 ML Insulin Aspart (novoLOG ASPART) SLIDING SCALE If C... ACHS SC 07/29/16 16:30 08/28/16 16:29 08/04/16 13:06 6 UNITS Glucose (Glucose 40% Gel) 15-30 GRAMS 15 GRAMS... UD PRN PO 07/29/16 14:00 08/28/16 13:59 Glucose (Glucose Chew Tab) 4-8 Tablets 4 Tabl... UD PRN PO 07/29/16 14:00 08/28/16 13:59 Dextrose (Dextrose 50% 50ML Syringe) 25-50ML OF 50% DW IV FOR... UD PRN IV 07/29/16 14:00 08/28/16 13:59 Glucagon (Glucagon Inj) 1 mg UD PRN SQ 07/29/16 14:00 08/28/16 13:59 Atorvastatin Calcium (Lipitor Tab) 40 mg DAILY PO 07/30/16 08:00 08/29/16 08:59 08/04/16 08:58 40 MG Cholecalciferol (Vitamin D Tab) 1,000 inter.unit QAM PO 07/30/16 08:00 08/29/16 08:59 08/04/16 08:57 1,000 INTER.UNIT Lisinopril (Zestril Tab) 40 mg QAM PO 07/30/16 08:00 08/29/16 08:59 08/04/16 08:58 40 MG Memantine (Namenda Tab) 10 mg Q12 PO 07/29/16 21:00 08/28/16 20:59 08/04/16 08:58 10 MG Calcium/Vitamin D (Caltrate Plus Tab) 1 tab BIDM PO 07/29/16 17:00 08/28/16 16:59 08/04/16 08:58 1 TAB Guaifenesin 200 mg 200 mg Q4H PRN PO 07/29/16 16:00 08/28/16 15:59 Pantoprazole Sodium/Syringe (Protonix Inj/ Syringe) 10 ml @ 5 mls/min DAILY@09,21 IV 07/30/16 21:00 08/29/16 20:59 08/04/16 08:57 5 MLS/MIN Clonidine HCl (Catapres Tab) 0.1 mg Q6H PRN PO 07/31/16 16:45 08/30/16 16:44 08/01/16 00:21 0.1 MG Insulin Glargine 7 unit 7 unit HS SC 08/01/16 21:00 08/31/16 20:59 08/03/16 21:04 7 UNIT Potassium Chloride/Sodium Chloride 1,000 ml @ 100 mls/hr Q10H IV 08/02/16 14:15 08/04/16 11:11 100 MLS/HR Ampicillin Sodium/ Sulbactam Sodium/ Dextrose (Unasyn Inj/D5 100ml) 108 ml @ 200 mls/hr Q6H IV 08/04/16 10:00 08/05/16 15:59 08/04/16 09:39 200 MLS/HR
[2016-08-04] MEDS ORDERED: AMOX875T PO (15:39)
[2016-08-04] MEDS ORDERED: PANT1TAB48 PO (15:39)
--- NOTE | 2016-08-04 15:54 | Discharge Instructions ---
Discharge Instructions Date of Service August 04, 2016. Admission Reason for Admission: Aspiration Pneumonia Discharge Discharge Diagnosis / Problem: ASPIRATION PNEUMONIA, POSSIBLE UPPER GI BLEED Discharge Goals Goal(s): Diagnostic testing, Therapeutic intervention Activity Recommendations Activity Level: Assistance Required Therapies: Physical Therapy, Occupational Therapy . Additional Information Patient informed of condition: No (PATIENT HAS DEMENTIA) Advance Directives: No (UNKNOWN) DNR: No (PATIENT IS FULL CODE) Level of Care: Skilled Communicable Disease: No Prognosis: Improving Instructions / Follow-Up Instructions / Follow-Up PLEASE RECHECK HEMOGLOBIN AND SODIUM IN 2-3 DAYS, THEN REGULARLY (RE: ANEMIA, HIGH SODIUM). ENCOURAGE INCREASED WATER INTAKE. MONITOR RESPIRATORY STATUS CLOSELY. DAILY BLOOD PRESSURE. REPEAT CHEST XRAY TO FOLLOW UP RESOLUTION OF PNEUMONIA. FOLLOW UP LYTIC LESIONS IN THE RIGHT ILIAC BONE AND L4 VERTEBRAL BODY. FOLLOW SPEECH THERAPY RECOMMENDATIONS: * This patient has advanced dementia. She is a HIGH ASPIRATION RISK with any oral intake--especially in combination with her current pulmonary status. She is already on a modified diet (pureed). WAFER PRODUCTION LEAD WORKER recommendation is: 1. Pureed diet with water-based thin liquids (eg, water, coffee, tea) 2. Stringent oral hygiene protocol: Clean ALL surfaces of mouth and dentures with toothbrush and toothpaste PRIOR TO any oral intake in the morning, after all meals, and prior to going to bed for the night 3. General aspiration precautions: fully upright, alternate consistencies, remain upright after meals for 20-30 minutes, keep head of bed elevated at least 30-degrees at ALL times 4. Consideration of review of Code Status and completion of POLST given patient's advancing dementia and likely recurrent aspiration 5. VFSS only if patient POA insists prior to making decisions about feeding patient. If the patient's family/POA wishes to use thickened liquids in an attempt to minimize aspiration even more, then can try NECTAR THICK liquids. However, there is no guarantee that the patient will not eventually aspirate these and then the patient is also aspirating thickener. If oral intake will be discontinued then the question will be hospice vs. enteral feeding. Again, completion of POLST should be considered if not already done. PLEASE REFER TO ACCOMPANYING DISCHARGE SUMMARY FOR FURTHER RECOMMENDATIONS. FOLLOW UP WITH PRIMARY CARE PROVIDER IN 1 WEEK. Current Hospital Diet Patient's current hospital diet: Diabetes Type 2 Diet Discharge Diet Recommended Diet: AHA Diet (Heart Healthy), Diabetes Type 2 Diet Diet Texture: Pureed (blended smooth) (WITH WATER BASED THIN LIQUIDS) Pending Studies Studies pending at discharge: yes List of pending studies: PLEASE RECHECK HEMOGLOBIN AND SODIUM IN 2-3 DAYS, THEN REGULARLY (RE: ANEMIA, HIGH SODIUM). PLEASE REFER TO ACCOMPANYING DISCHARGE SUMMARY FOR FURTHER RECOMMENDATIONS. Physician Orders On Transfer Special Precautions: PLEASE RECHECK HEMOGLOBIN AND SODIUM IN 2-3 DAYS, THEN REGULARLY (RE: ANEMIA, HIGH SODIUM). ENCOURAGE INCREASED WATER INTAKE. MONITOR RESPIRATORY STATUS CLOSELY. DAILY BLOOD PRESSURE. REPEAT CHEST XRAY TO FOLLOW UP RESOLUTION OF PNEUMONIA. FOLLOW UP LYTIC LESIONS IN THE RIGHT ILIAC BONE AND L4 VERTEBRAL BODY. FOLLOW SPEECH THERAPY RECOMMENDATIONS: * This patient has advanced dementia. She is a HIGH ASPIRATION RISK with any oral intake--especially in combination with her current pulmonary status. She is already on a modified diet (pureed). WAFER PRODUCTION LEAD WORKER recommendation is: 1. Pureed diet with water-based thin liquids (eg, water, coffee, tea) 2. Stringent oral hygiene protocol: Clean ALL surfaces of mouth and dentures with toothbrush and toothpaste PRIOR TO any oral intake in the morning, after all meals, and prior to going to bed for the night 3. General aspiration precautions: fully upright, alternate consistencies, remain upright after meals for 20-30 minutes, keep head of bed elevated at least 30-degrees at ALL times 4. Consideration of review of Code Status and completion of POLST given patient's advancing dementia and likely recurrent aspiration 5. VFSS only if patient POA insists prior to making decisions about feeding patient. If the patient's family/POA wishes to use thickened liquids in an attempt to minimize aspiration even more, then can try NECTAR THICK liquids. However, there is no guarantee that the patient will not eventually aspirate these and then the patient is also aspirating thickener. If oral intake will be discontinued then the question will be hospice vs. enteral feeding. Again, completion of POLST should be considered if not already done. PLEASE REFER TO ACCOMPANYING DISCHARGE SUMMARY FOR FURTHER RECOMMENDATIONS. FOLLOW UP WITH PRIMARY CARE PROVIDER IN 1 WEEK. Medical Emergencies . Who to Call and When: Medical Emergencies: If at any time you feel your situation is an emergency, please call 911 immediately. . Non-Emergent Contact Non-Emergency issues call your: Primary Care Provider Call Non-Emergent contact if: you have a fever, you have any medication questions . Past History Medical & Surgical History: (1) Aspiration pneumonia (2) Diabetes mellitus, type II (3) CVD (cardiovascular disease) (4) HTN (hypertension) (5) Dyslipidemia . "Provider Documentation" section prepared by Garland Smith. . Core Measure Problem Core Measures: None
--- NOTE | 2016-08-04 16:02 | Discharge Summary ---
Discharge Summary Date of Service August 04, 2016. Discharge Summary Admission Date: Jul 29, 2016 at 13:32 Discharge Date: August 04, 2016 Discharge Disposition: Home with services Principal Diagnosis: ASPIRATION PNEUMONIA, RIGHT LOWER LOBE HIGH ASPIRATION RISK Secondary Diagnoses/Problems: PLEASE REFER TO HOSPITAL COURSE BELOW. Procedures: CT ABD/PELVIS IV CONTRAST ONLY CLINICAL HISTORY: Nausea and vomiting COMPARISON STUDY: None. TECHNIQUE: Following the IV administration of 94 mL of Optiray-320, CT scan of the abdomen and pelvis was performed from the lung bases to the proximal femurs. Images are reviewed in the axial, sagittal, and coronal planes. IV contrast was administered without complication. CT DOSE: 729.38 mGy.cm FINDINGS: Lower chest: There is right basilar pulmonary consolidation. There are bilateral pleural effusions right greater than left. There are left lower lobe atelectatic changes. There is mild distal esophageal wall thickening. Liver: The contrast-enhanced liver is normal in size, contour, and attenuation. There is no intrahepatic biliary ductal dilatation. The hepatic veins and portal veins are patent. Gallbladder: Presumed surgically absent Spleen: Normal in size and attenuation. Pancreas: Unremarkable. Adrenal glands: Unremarkable. Kidneys: There are small bilateral intrarenal calculi. No solid renal masses are visualized. Bowel: There is stool present throughout the colon. There are no transition zones to indicate bowel obstruction. There are no findings to indicate acute appendicitis. There are no findings to indicate acute diverticulitis. Peritoneum: There is no intraperitoneal free air or abdominal ascites. Vasculature: The abdominal aorta is normal in course and caliber. Adenopathy: None. Pelvic viscera: There is bladder wall thickening. Please correlate clinically in regards to a cystitis. The uterus appears surgically absent. Skeletal structures: Arthritic changes are present within the hips. There is a 9 mm lytic focus within the right iliac bone. There is a 17 mm lytic focus within the L4 vertebral body. The bones have a somewhat "chalky" appearance. IMPRESSION: 1. Small bilateral pleural effusions with right lower lobe consolidative change 2. Bilateral nephrolithiasis 3. No evidence of bowel obstruction. No evidence of free air 4. Moderate bladder wall thickening. Please correlate clinically in regards to a cystitis 5. Nonspecific lytic foci involving the right iliac bone and L4 vertebral body SINGLE VIEW CHEST CLINICAL HISTORY: Follow-up pneumonia. FINDINGS: An AP, portable, upright chest radiograph is compared to study dated 07/29/2016. The examination is degraded by portable technique and patient rotation. The heart is enlarged and there is atherosclerotic calcification of the thoracic aorta. The pulmonary vasculature is noncongested. Chronic interstitial thickening is unchanged. There are low lung volumes. Bibasilar airspace consolidation and small pleural effusions are similar to previous. No pneumothorax is seen. The skeletal structures are osteopenic. The bony thorax is grossly intact. A right shoulder arthroplasty is in place. Advanced degenerative change is noted in the thoracic spine. Chronic widening is seen at the right acromioclavicular joint. IMPRESSION: 1. Cardiac enlargement without radiographic evidence of congestive failure 2. Bibasilar airspace consolidation and small pleural effusions are identified. Radiographic follow-up to resolution is recommended. 3. Low lung volumes. Pending Studies/Follow-Up: PLEASE RECHECK HEMOGLOBIN AND SODIUM IN 2-3 DAYS, THEN REGULARLY (RE: ANEMIA, HIGH SODIUM). ENCOURAGE INCREASED WATER INTAKE. MONITOR RESPIRATORY STATUS CLOSELY. DAILY BLOOD PRESSURE. REPEAT CHEST XRAY TO FOLLOW UP RESOLUTION OF PNEUMONIA. FOLLOW UP LYTIC LESIONS IN THE RIGHT ILIAC BONE AND L4 VERTEBRAL BODY. FOLLOW SPEECH THERAPY RECOMMENDATIONS: * This patient has advanced dementia. She is a HIGH ASPIRATION RISK with any oral intake--especially in combination with her current pulmonary status. She is already on a modified diet (pureed). FREIGHT LOADER recommendation is: 1. Pureed diet with water-based thin liquids (eg, water, coffee, tea) 2. Stringent oral hygiene protocol: Clean ALL surfaces of mouth and dentures with toothbrush and toothpaste PRIOR TO any oral intake in the morning, after all meals, and prior to going to bed for the night 3. General aspiration precautions: fully upright, alternate consistencies, remain upright after meals for 20-30 minutes, keep head of bed elevated at least 30-degrees at ALL times 4. Consideration of review of Code Status and completion of POLST given patient's advancing dementia and likely recurrent aspiration 5. VFSS only if patient POA insists prior to making decisions about feeding patient. If the patient's family/POA wishes to use thickened liquids in an attempt to minimize aspiration even more, then can try NECTAR THICK liquids. However, there is no guarantee that the patient will not eventually aspirate these and then the patient is also aspirating thickener. If oral intake will be discontinued then the question will be hospice vs. enteral feeding. Again, completion of POLST should be considered if not already done. PLEASE REFER TO ACCOMPANYING DISCHARGE SUMMARY FOR FURTHER RECOMMENDATIONS. FOLLOW UP WITH PRIMARY CARE PROVIDER IN 1 WEEK. Current Hospital Diet Patient's current hospital diet: Diabetes Type 2 Diet Discharge Diet Recommended Diet: AHA Diet (Heart Healthy), Diabetes Type 2 Diet Diet Texture: Pureed (blended smooth) (WITH WATER BASED THIN LIQUIDS) Pending Studies Studies pending at discharge: yes List of pending studies: PLEASE RECHECK HEMOGLOBIN AND SODIUM IN 2-3 DAYS, THEN REGULARLY (RE: ANEMIA, HIGH SODIUM). PLEASE REFER TO ACCOMPANYING DISCHARGE SUMMARY FOR FURTHER RECOMMENDATIONS. Physician Orders On Transfer Special Precautions: PLEASE RECHECK HEMOGLOBIN AND SODIUM IN 2-3 DAYS, THEN REGULARLY (RE: ANEMIA, HIGH SODIUM). ENCOURAGE INCREASED WATER INTAKE. MONITOR RESPIRATORY STATUS CLOSELY. DAILY BLOOD PRESSURE. REPEAT CHEST XRAY TO FOLLOW UP RESOLUTION OF PNEUMONIA. FOLLOW UP LYTIC LESIONS IN THE RIGHT ILIAC BONE AND L4 VERTEBRAL BODY. FOLLOW SPEECH THERAPY RECOMMENDATIONS: * This patient has advanced dementia. She is a HIGH ASPIRATION RISK with any oral intake--especially in combination with her current pulmonary status. She is already on a modified diet (pureed). FREIGHT LOADER recommendation is: 1. Pureed diet with water-based thin liquids (eg, water, coffee, tea) 2. Stringent oral hygiene protocol: Clean ALL surfaces of mouth and dentures with toothbrush and toothpaste PRIOR TO any oral intake in the morning, after all meals, and prior to going to bed for the night 3. General aspiration precautions: fully upright, alternate consistencies, remain upright after meals for 20-30 minutes, keep head of bed elevated at least 30-degrees at ALL times 4. Consideration of review of Code Status and completion of POLST given patient's advancing dementia and likely recurrent aspiration 5. VFSS only if patient POA insists prior to making decisions about feeding patient. If the patient's family/POA wishes to use thickened liquids in an attempt to minimize aspiration even more, then can try NECTAR THICK liquids. However, there is no guarantee that the patient will not eventually aspirate these and then the patient is also aspirating thickener. If oral intake will be discontinued then the question will be hospice vs. enteral feeding. Again, completion of POLST should be considered if not already done. PLEASE REFER TO HOSPITAL COURSE BELOW FOR FURTHER RECOMMENDATIONS. FOLLOW UP WITH PRIMARY CARE PROVIDER IN 1 WEEK. Medication Reconciliation New Medications: Amoxicillin & Pot Clavulanate (Augmentin 875-125 mg) 1 Tab Tab 875 MG PO BID for 3 Days, #6 TAB 0 Refills Pantoprazole (Protonix) 40 Mg Tab 40 MG PO BID for 30 Days, #60 TAB 1 Refill Continued Medications: Acetaminophen Tab (Tylenol) 325 Mg Tab 650 MG PO Q4H PRN for Mild Pain, TAB Atorvastatin (Lipitor) 40 Mg Tab 40 MG PO DAILY, TAB Calcium Carbonate-Vitamin D (Oyster Calcium/Vitamin D) 1 Tab Tab 1 TAB PO BID Cholecalciferol (Vitamin D3) 1,000 Unit Tab 1000 INTER.UNIT PO QAM for 90 Days, TAB 3 Refills Guaifenesin (Guiatuss) 100 Mg/5 Ml Syp 10 ML PO Q4H PRN for Cough Insulin Aspart (Novolog Flexpen) 100 Units/Ml Inj 6 UNITS SC BID AFTER BREAKFAST AND AFTER SUPPER. HOLD IF EATS < 25% OF MEAL Insulin Glargine (Lantus Solostar) 100 Unit/Ml Inj 26 UNITS SC HS, PEN Ipratropium-Albuterol (Duoneb) 3 Ml Nebu 1 TREATMENT INH TID, INHA Lisinopril (Zestril) 40 Mg Tab 40 MG PO QAM, TAB Memantine (Namenda) 10 Mg Tab 10 MG PO Q12, TAB Admission Information HPI (per Admitting provider): This is an 86 y/o female with PMHx of Insulin-Dependent DM2, HTN, Dyslipidemia who presents to the ED from [facility] due to episode of coffee- ground emesis this morning. Pt is non-verbal due to severe dementia therefore entire history is obtained from [facility] documentation. Per records, patient was found with copious amounts of vomit that looked coffee-ground in appearance. She was also noted to have a wet-cough. Unable to obtain ROS due to severe dementia. In the ED, vitals are stable. Pt is afebrile with no leukocytosis. HgB 13.9. CXR RLL consolidation. UA 4+ bacteria. Pt has not had any more episodes of emesis since arrival to the ED. She is stable and will be admitted for further evaluation and treatment. Physical Exam (per Admitting): General Appearance: WD/WN, no apparent distress, + pertinent finding (Pt is laying in bed with no family at bedside ) Head: normocephalic, atraumatic Eyes: normal inspection ENT: hearing grossly normal Neck: supple Respiratory/Chest: chest non-tender, no respiratory distress, + rhonchi ( diffuse), + pertinent finding (no wheezing noted) Cardiovascular: regular rate, rhythm, no edema, no murmur Abdomen/GI: normal bowel sounds, non tender, soft Back: normal inspection Extremities/Musculoskelatal: normal inspection, no calf tenderness, no pedal edema Neurologic/Psych: alert, + pertinent finding (no gross focal neuro deficits) Skin: normal color, warm/dry Hospital Course 86 year old female with history of Dementia, resident of [facility], DM, HTN, HLD presenting with coffee ground emesis. ASPIRATION PNEUMONIA, RIGHT LOWER LOBE HIGH ASPIRATION RISK - pt presents with cough after episode of vomiting -CT (+) RLL consolidation - blood culture: 1 out of 2 bottles coag neg staph, likely contaminant - received 7 days of Unasyn also given scheduled duonebs and Mucinex added Vanco Day 3 for possible gram positive cocci bacteremia but was discontinued as final blood culture reveal this is a contaminant - continue with Augmentin x 3 more days continue Duonebs, wean off accordingly monitor respiratory status - speech therapy recommendations: * This patient has advanced dementia. She is a HIGH ASPIRATION RISK with any oral intake--especially in combination with her current pulmonary status. She is already on a modified diet (pureed). FREIGHT LOADER recommendation is: 1. Pureed diet with water-based thin liquids (eg, water, coffee, tea) 2. Stringent oral hygiene protocol: Clean ALL surfaces of mouth and dentures with toothbrush and toothpaste PRIOR TO any oral intake in the morning, after all meals, and prior to going to bed for the night 3. General aspiration precautions: fully upright, alternate consistencies, remain upright after meals for 20-30 minutes, keep head of bed elevated at least 30-degrees at ALL times 4. Consideration of review of Code Status and completion of POLST given patient's advancing dementia and likely recurrent aspiration 5. VFSS only if patient POA insists prior to making decisions about feeding patient. If the patient's family/POA wishes to use thickened liquids in an attempt to minimize aspiration even more, then can try NECTAR THICK liquids. However, there is no guarantee that the patient will not eventually aspirate these and then the patient is also aspirating thickener. If oral intake will be discontinued then the question will be hospice vs. enteral feeding. Again, completion of POLST should be considered if not already done. UTI , Proteus - remained afebrile, no leukocytosis -urine cx- Proteus, pansensitive - received Unasyn x 7 days - continue Augmentin x 3 more days to complete 10 day course POSSIBLE COFFEE-GROUND EMESIS -1 episode of coffee-ground emesis per documentation from [facility] -Unable to get any history of melena or concerns about fresh red blood in stool -no recurrence so far -Hg stable ~11-12 - was given Protonix 40mg BID IV patient's would like to treat her medically for now, declines EGD - discharge on Protonix 40mg po BID monitor Hg titrate Protonix accordingly HYPERNATREMIA - initially Na 152 given 1/2 NSS - repeat Na 147 - continue to monitor Na closely repeat Na in 2-3 days, then regularly encourage increase water intake SEVERE DEMENTIA -At baseline per INSULIN-DEPENDENT DM 2 - recent A1C 7.1 - continue usual Lantus and Aspart HTN -BP stable -cont Lisinopril DYSLIPIDEMIA -cont statin DVT PROPHYLAXIS -SCDs only in setting of possible episode of coffee-ground emesis CODE STATUS -FULL CODE per DISPO d/c to [facility] ff up with PCP in 1 week Total time spent on discharge = 45 minutes This includes examination of the patient, discharge planning, medication reconciliation, and communication with other providers. Discharge Instructions Discharge Instructions Date of Service August 04, 2016. Admission Reason for Admission: Aspiration Pneumonia Discharge Discharge Diagnosis / Problem: ASPIRATION PNEUMONIA, POSSIBLE UPPER GI BLEED Discharge Goals Goal(s): Diagnostic testing, Therapeutic intervention Activity Recommendations Activity Level: Assistance Required Therapies: Physical Therapy, Occupational Therapy . Additional Information Patient informed of condition: No (PATIENT HAS DEMENTIA) Advance Directives: No (UNKNOWN) DNR: No (PATIENT IS FULL CODE) Level of Care: Skilled Communicable Disease: No Prognosis: Improving Instructions / Follow-Up Instructions / Follow-Up PLEASE RECHECK HEMOGLOBIN AND SODIUM IN 2-3 DAYS, THEN REGULARLY (RE: ANEMIA, HIGH SODIUM). ENCOURAGE INCREASED WATER INTAKE. MONITOR RESPIRATORY STATUS CLOSELY. DAILY BLOOD PRESSURE. REPEAT CHEST XRAY TO FOLLOW UP RESOLUTION OF PNEUMONIA. FOLLOW UP LYTIC LESIONS IN THE RIGHT ILIAC BONE AND L4 VERTEBRAL BODY. FOLLOW SPEECH THERAPY RECOMMENDATIONS: * This patient has advanced dementia. She is a HIGH ASPIRATION RISK with any oral intake--especially in combination with her current pulmonary status. She is already on a modified diet (pureed). FREIGHT LOADER recommendation is: 1. Pureed diet with water-based thin liquids (eg, water, coffee, tea) 2. Stringent oral hygiene protocol: Clean ALL surfaces of mouth and dentures with toothbrush and toothpaste PRIOR TO any oral intake in the morning, after all meals, and prior to going to bed for the night 3. General aspiration precautions: fully upright, alternate consistencies, remain upright after meals for 20-30 minutes, keep head of bed elevated at least 30-degrees at ALL times 4. Consideration of review of Code Status and completion of POLST given patient's advancing dementia and likely recurrent aspiration 5. VFSS only if patient POA insists prior to making decisions about feeding patient. If the patient's family/POA wishes to use thickened liquids in an attempt to minimize aspiration even more, then can try NECTAR THICK liquids. However, there is no guarantee that the patient will not eventually aspirate these and then the patient is also aspirating thickener. If oral intake will be discontinued then the question will be hospice vs. enteral feeding. Again, completion of POLST should be considered if not already done. PLEASE REFER TO ACCOMPANYING DISCHARGE SUMMARY FOR FURTHER RECOMMENDATIONS. FOLLOW UP WITH PRIMARY CARE PROVIDER IN 1 WEEK. Current Hospital Diet Patient's current hospital diet: Diabetes Type 2 Diet Discharge Diet Recommended Diet: AHA Diet (Heart Healthy), Diabetes Type 2 Diet Diet Texture: Pureed (blended smooth) (WITH WATER BASED THIN LIQUIDS) Pending Studies Studies pending at discharge: yes List of pending studies: PLEASE RECHECK HEMOGLOBIN AND SODIUM IN 2-3 DAYS, THEN REGULARLY (RE: ANEMIA, HIGH SODIUM). PLEASE REFER TO ACCOMPANYING DISCHARGE SUMMARY FOR FURTHER RECOMMENDATIONS. Physician Orders On Transfer Special Precautions: PLEASE RECHECK HEMOGLOBIN AND SODIUM IN 2-3 DAYS, THEN REGULARLY (RE: ANEMIA, HIGH SODIUM). ENCOURAGE INCREASED WATER INTAKE. MONITOR RESPIRATORY STATUS CLOSELY. DAILY BLOOD PRESSURE. REPEAT CHEST XRAY TO FOLLOW UP RESOLUTION OF PNEUMONIA. FOLLOW UP LYTIC LESIONS IN THE RIGHT ILIAC BONE AND L4 VERTEBRAL BODY. FOLLOW SPEECH THERAPY RECOMMENDATIONS: * This patient has advanced dementia. She is a HIGH ASPIRATION RISK with any oral intake--especially in combination with her current pulmonary status. She is already on a modified diet (pureed). FREIGHT LOADER recommendation is: 1. Pureed diet with water-based thin liquids (eg, water, coffee, tea) 2. Stringent oral hygiene protocol: Clean ALL surfaces of mouth and dentures with toothbrush and toothpaste PRIOR TO any oral intake in the morning, after all meals, and prior to going to bed for the night 3. General aspiration precautions: fully upright, alternate consistencies, remain upright after meals for 20-30 minutes, keep head of bed elevated at least 30-degrees at ALL times 4. Consideration of review of Code Status and completion of POLST given patient's advancing dementia and likely recurrent aspiration 5. VFSS only if patient POA insists prior to making decisions about feeding patient. If the patient's family/POA wishes to use thickened liquids in an attempt to minimize aspiration even more, then can try NECTAR THICK liquids. However, there is no guarantee that the patient will not eventually aspirate these and then the patient is also aspirating thickener. If oral intake will be discontinued then the question will be hospice vs. enteral feeding. Again, completion of POLST should be considered if not already done. PLEASE REFER TO ACCOMPANYING DISCHARGE SUMMARY FOR FURTHER RECOMMENDATIONS. FOLLOW UP WITH PRIMARY CARE PROVIDER IN 1 WEEK. Medical Emergencies . Who to Call and When: Medical Emergencies: If at any time you feel your situation is an emergency, please call 911 immediately. . Non-Emergent Contact Non-Emergency issues call your: Primary Care Provider Call Non-Emergent contact if: you have a fever, you have any medication questions . Past History Medical & Surgical History: (1) Aspiration pneumonia (2) Diabetes mellitus, type II (3) CVD (cardiovascular disease) (4) HTN (hypertension) (5) Dyslipidemia . "Provider Documentation" section prepared by Garland Smith. . Core Measure Problem Core Measures: None
== END 2016-08-04 19:10 | DRG 178 ==
LOC: ENRESERVTM → ENRESERVDT → EDBD 09:48 → C.EDB 09:49 → C.4E 13:32
PROVIDERS: ADMIT Internal Medicine; ATTEND Internal Medicine
DX: J69.0 Pneumonitis due to inhalation of food and vomit (principal); N39.0 Urinary tract infection, site not specified; E87.0 Hyperosmolality and hypernatremia; F03.90 Unspecified dementia, unspecified severity, without behavioral disturbance, psychotic disturbance, mood disturbance, and anxiety; E11.9 Type 2 diabetes mellitus without complications; I10 Essential (primary) hypertension; E78.5 Hyperlipidemia, unspecified; B96.4 Proteus (mirabilis) (morganii) as the cause of diseases classified elsewhere; Z79.4 Long term (current) use of insulin

== ENCOUNTER 2019-11-16 17:54 | Inpatient (IN) ==
[2019-11-16] MEDS ORDERED: SODIUM CHLORIDE 0.9% 1000ML 1,000 ML IV ONE (18:21)
[2019-11-16 18:39] LABS: Basophils # (auto) 0.01 K/uL (0-0.2); Basophils % (auto) 0.1 %; Eosinophils # (auto) 0.01 K/uL (0-0.5); Eosinophils % (auto) 0.1 %; Hematocrit (blood only) 50.5 % (37-47); Hemoglobin 15.8 g/dL (12.0-16.0); Immature Granulocytes # (auto) 0.04 K/uL (0.00-0.02); Immature Granulocytes % (auto) 0.4 %; Lymphocytes # (auto) 2.24 K/uL (1.2-3.4); Lymphocytes % (auto) 22.1 %; Mean Corpuscular Hemoglobin 28.8 pg (25-34); Mean Corpuscular Hgb Conc 31.3 g/dL (32-36); Mean Corpuscular Volume 92.2 fL (80-100); Mean Platelet Volume 14.5 fL (7.4-10.4); Monocytes # (auto) 0.97 K/uL (0.11-0.59); Monocytes % (auto) 9.6 %; Neutrophils # (auto) 6.87 K/uL (1.4-6.5); Neutrophils % (auto) 67.7 %; Platelet Count 170 K/uL (130-400); RDW Standard Deviation 50.7 fL (36.4-46.3); Red Blood Count 5.48 M/uL (4.2-5.4); White Blood Count 10.14 K/uL (4.8-10.8)
--- NOTE | 2019-11-16 18:45 | XRay Report ---
XR chest 1V portable HISTORY: 89 years-old Female weakness acute weakness COMPARISON: Chest radiograph 07/31/2016 TECHNIQUE: Portable AP view of the chest FINDINGS: Patient is rotated towards the left. Cardiac silhouette is upper limits of normal in size. Mitral cortney ular calcifications. Calcified plaque of the thoracic aortic arch. There is no pneumothorax, pleural effusion, airspace consolidation or overt pulmonary edema. Osteoarthritis of the left shoulder. Rever se right shoulder total joint arthroplasty. Bones appear grossly intact. IMPRESSION: No acute process. ACT 112: Negative or not required by law. The above report was generated using voice recognition software. It may contain grammatical, syntax o r spelling errors. Electronically signed by: Maximus Dc M.D. 11/16/2019 6:44 PM
[2019-11-16 18:53] LABS: INR 1.2 (0.9-1.1); Prothrombin Time 12.9 Seconds (9.0-12.0)
[2019-11-16 19:00] LABS: Alanine Aminotransferase 23 U/L (12-78); Albumin Globulin Ratio 0.9 (0.9-2); Albumin Level 3.1 gm/dl (3.4-5.0); Alkaline Phosphatase 86 U/L (45-117); Aspartate Aminotransferase 15 U/L (15-37); BUN Creatinine Ratio 32.6 (10-20); Bilirubin,Total 0.5 mg/dl (0.2-1); Blood Urea Nitrogen 88 mg/dl (7-18); Calcium 9.1 mg/dl (8.5-10.1); Carbon Dioxide 24 mmol/L (21-32); Chloride 130 mmol/L (98-107); Est GFR (African American) 17.6; Est GFR (Non-African American) 15.2; Globulin 3.5 gm/dl (2.5-4.0); Glucose 443 mg/dl (70-99); Magnesium 2.5 mg/dl (1.8-2.4); Potassium 4.3 mmol/L (3.5-5.1); Sodium 162 mmol/L (136-145); Thyroid Stimulating Hormone < 0.005 uIu/ml (0.300-4.500); Total Protein 6.6 gm/dl (6.4-8.2); Troponin I 0.109 ng/ml (0-0.045)
--- NOTE | 2019-11-16 19:09 | Emergency Department Note ---
Impression & Plan Hyperglycemia due to type 2 diabetes mellitus, Acute hypernatremia, Acute renal failure (ARF), Non-ST elevation IL (NSTEMI), Acute dehydration ED Provider Note Provider: Fernando Eldridge MD DATE OF SERVICE: 11/16/2019 CHIEF COMPLAINT: Decreased intake, lab abnormalities HISTORY OF PRESENT ILLNESS: Patient is a 89-year-old female with a past medical history including Alzheimer's disease, diabetes, peripheral neuropathy, aortic stenosis, CKD 2, hyperlipidemia presenting today from her nursing facility reportedly with laboratory abnormalities. Reports that the patient over the last 5 days has had significantly decreased oral intake. This was reportedly to be new finding and she is feeling spitting things out. There is no choking been witnessed in the outpatient setting per the report. Patient unable to provide significant history and is basically nonverbal here. No fevers reported in the outpatient setting. Outpatient labs today concerning for elevated sodium and creatinine as well as significantly low TSH. Sent here for further evaluation. No trauma reported. Again no fevers of been reported. REVIEW OF SYSTEMS: A total of 10 review of systems was obtained and negative except as stated above in the HPI. PAST MEDICAL HISTORY: As noted above MEDICATIONS: Reviewed the medical records from the nursing facility with medication listings SOCIAL HISTORY: Resides at [facility], never smoker. . PHYSICAL EXAM: GENERAL: Eyes open staring laying on the stretcher. Responsive to painful stimuli. Head: normocephalic and atraumatic EYES: No injection, discharge or icterus. PERRL NECK: Trachea midline. Supple. ENT: Mucous membranes pink, mouth agape dry membranes. Has some layer of slight dried food on the upper hard palate. LUNGS: Airway patent. No retractions. Breath sounds clear but diminished bases HEART: Regular tachycardic rate and rhythm. No chest wall tenderness ABDOMEN: Soft and non-tender, without guarding or rebound. SKIN: Acyanotic, warm, dry. EXTREMITIES: Without swelling, tenderness or deformity NEUROLOGICAL: Withdraws to pain in all 4 extremities. Will NOT answer questions. EKG: Sinus tachycardia 110 bpm. Left axis. Left bundle branch noted. No acute ST segment elevation is notable. T wave inversions in aVL with some lateral and inferior ST flattening noted. Grossly similar to July [id number]. CONTINUOUS CARDIAC MONITORING: was ordered and showed a heart rate of 93 bpm in normal sinus rhythm Patient's hypertension was referred to the hospitalist HOSPITAL COURSE: 1821 Patient was first seen and H&P performed. 1944 Patient reassessed and updated. Patient was resting in bed. Did call and talk with the patient's via phone at this time and stated she would be full code and he would see her on Thursday if she was still in the hospital. Patient's laboratory studies and imaging reviewed. Differential includes Infection, dehydration, metabolic abnormality, hypo/hyperglycemia, electrolyte disturbance, anemia, hypoxia, cardiac sources, intracerebral event, toxicologic, neurologic, as well as other pathologies. IMPRESSION/MEDICAL DECISION MAKING: Difficult obtain the patient with a history of decreased intake reported and labs concerning obtained prior. Repeats were sent here. Acute hypernatremia of 162 is noted. Acute renal failure with a creatinine of 2.7 is noted. Glucose is also elevated at 443. Troponin detectable at 0.109. Hard to tell if the patient is experiencing active pain but there is no acute changes on the EKG suggestive of ST segment elevation IL. Likely demand in the setting of dehydration and renal dysfunction. TSH is undetectable. Free T4 is sent and elevated. No evidence of acute hepatitis. Given a normal saline bolus for hydration and the hypernatremia. Chest x-ray obtained without acute findings. Given that she is having decreased intake due to swallowing and her difficult status, CT of the head is complete exclude acute intercranial pathology. Given a dose of some IV insulin. Patient not tolerating oral at this time for aspirin. No fever here initially. Given unclear history lactate and cultures were sent. Procalcitonin not significantly elevated. Do not believe this is acutely infectious. Will discuss with the hospitalist for further inpatient care. Attempted to call her listed contact, at the number listed, but there was no answer at [phone] a message was left to call back. DIAGNOSIS: Acute hypernatremia, acute renal failure, NSTEMI, hypothyroidism DISPOSITION: Hospitalist will evaluate Critical Care I have personally spent 35 minutes of critical care time in the direct management of this patient. This includes bedside care, interpretation of diagnostic studies, and testing, discussion with consultants, patient, and family members, and other required patient management activities. These 35 minutes is in excess of all separately billable procedures. Past Med/Surg History Social History Smoking Status: Unknown if ever smoked Preferred Language: Serbian Communication Ability: Impaired Communication Ability Comment: nonverbal Engine Tester Required: No Beliefs That Will Affect Care: None Current Living Situation: Senior Living Current Living Situation Comment: [facility] Feels Safe at Home: Yes Allergies Allergies Allergy/AdvReac Type Severity Reaction Status Date / Time No Known Allergies Allergy Unknown Verified 11/16/19 20:36 Home Meds Home Medications Medication Instructions Recorded Confirmed acetaminophen [Tylenol] 650 mg PO Q4 PRN 11/16/19 11/16/19 atorvastatin [Lipitor] 40 mg PO DAILY 11/16/19 11/16/19 calcium carbonate-vitamin D3 1 tab PO AMHS 11/16/19 11/16/19 [Oyster Shell Calcium-Vit D3] cholecalciferol (vitamin D3) 1,000 unit PO DAILY 11/16/19 11/16/19 [Vitamin D3] insulin aspart U-100 [Novolog 6 unit SUBCUT .BID UD 11/16/19 11/16/19 U-100 Insulin aspart] insulin glargine [Lantus U-100 10 unit SUBCUT HS 11/16/19 11/16/19 Insulin] lisinopril [Zestril] 20 mg PO DAILY 11/16/19 11/16/19 miconazole nitrate [Desenex] 1 applic TOPICAL BID 11/16/19 11/16/19 omega [id number] oil [Fish Oil] 1 cap PO DAILY 11/16/19 11/16/19 polyethylene glycol 3350 [Miralax] 17 g PO AMHS 11/16/19 11/16/19 sennosides-docusate sodium 2 tab PO AMHS 11/16/19 11/16/19 [Senexon-S] Results & Data (ED) Vital Signs Vital Signs - 24 hr 11/16/19 18:00 11/16/19 18:03 11/16/19 18:17 Temperature 37.0 C Temperature Source Oral Pulse Rate 107 H 109 H 107 H Pulse Rate from SpO2 Sensor 107 H 106 H Pulse Rhythm Regular Pulse Strength Normal Respiratory Rate 31 H 24 31 H Respiratory Effort / Characteristics Non-Labored Spontaneous Respiratory Depth Normal Respiratory Pattern Regular Blood Pressure 138/65 129/65 Blood Pressure Mean 81 86 Blood Pressure Position Lying Pulse Oximetry 97 98 97 Oxygen Delivery Method Room Air Room Air Room Air Sepsis Recent Fever Within 48 Hours No Sepsis New/Unexplained Change in Mental Status No Sepsis Action Taken by Nursing Physician Notified 11/16/19 18:30 11/16/19 18:31 11/16/19 18:56 Temperature 37.3 C Temperature Source Rectal Pulse Rate 106 H 107 H Pulse Rate from SpO2 Sensor 107 H 107 H Pulse Rhythm Pulse Strength Respiratory Rate 30 H 28 H Respiratory Effort / Characteristics Respiratory Depth Respiratory Pattern Blood Pressure 138/77 Blood Pressure Mean 89 Blood Pressure Position Pulse Oximetry 97 97 Oxygen Delivery Method Sepsis Recent Fever Within 48 Hours Sepsis New/Unexplained Change in Mental Status Sepsis Action Taken by Nursing 11/16/19 19:00 11/16/19 19:01 11/16/19 19:25 Temperature Temperature Source Pulse Rate 98 H 98 H 97 H Pulse Rate from SpO2 Sensor 98 H 98 H 97 H Pulse Rhythm Pulse Strength Respiratory Rate 24 22 22 Respiratory Effort / Characteristics Respiratory Depth Respiratory Pattern Blood Pressure 132/70 159/69 H Blood Pressure Mean 103 118 Blood Pressure Position Pulse Oximetry 98 97 98 Oxygen Delivery Method Sepsis Recent Fever Within 48 Hours Sepsis New/Unexplained Change in Mental Status Sepsis Action Taken by Nursing 11/16/19 19:30 11/16/19 19:31 11/16/19 20:00 Temperature Temperature Source Pulse Rate 96 H 96 H 94 H Pulse Rate from SpO2 Sensor 96 H 96 H 85 Pulse Rhythm Pulse Strength Respiratory Rate 26 H 20 27 H Respiratory Effort / Characteristics Respiratory Depth Respiratory Pattern Blood Pressure 152/67 H 172/70 H Blood Pressure Mean 106 128 Blood Pressure Position Pulse Oximetry 98 98 98 Oxygen Delivery Method Sepsis Recent Fever Within 48 Hours Sepsis New/Unexplained Change in Mental Status Sepsis Action Taken by Nursing 11/16/19 20:01 11/16/19 20:15 11/16/19 20:30 Temperature Temperature Source Pulse Rate 90 101 H 96 H Pulse Rate from SpO2 Sensor 79 90 104 H Pulse Rhythm Pulse Strength Respiratory Rate 22 28 H 22 Respiratory Effort / Characteristics Respiratory Depth Respiratory Pattern Blood Pressure 171/69 H 162/85 H Blood Pressure Mean 102 92 Blood Pressure Position Pulse Oximetry 98 99 99 Oxygen Delivery Method Sepsis Recent Fever Within 48 Hours Sepsis New/Unexplained Change in Mental Status Sepsis Action Taken by Nursing 11/16/19 21:00 11/16/19 21:12 Temperature Temperature Source Pulse Rate 96 H 103 H Pulse Rate from SpO2 Sensor 109 H Pulse Rhythm Pulse Strength Respiratory Rate 21 Respiratory Effort / Characteristics Respiratory Depth Respiratory Pattern Blood Pressure 172/88 H 172/88 H Blood Pressure Mean 117 Blood Pressure Position Pulse Oximetry 99 Oxygen Delivery Method Sepsis Recent Fever Within 48 Hours Sepsis New/Unexplained Change in Mental Status Sepsis Action Taken by Nursing Laboratory Data Result diagrams: 11/16/19 18:08 11/17/19 00:32 Lab Results 11/16/19 11/16/19 11/16/19 Range/Units 18:08 18:08 18:08 WBC 10.14 (4.8-10.8) K/uL RBC 5.48 H (4.2-5.4) M/uL Hgb 15.8 (12.0-16.0) g/dL Hct 50.5 H (37-47) % MCV 92.2 (80-100) fL MCH 28.8 (25-34) pg MCHC 31.3 L (32-36) g/dL RDW Std Deviation 50.7 H (36.4-46.3) fL RDW Coeff of Salvatore 15.0 H (11.5-14.5) % Plt Count 170 (130-400) K/uL MPV 14.5 H (7.4-10.4) fL Immature Gran % (Auto) 0.4 % Neut % (Auto) 67.7 % Lymph % (Auto) 22.1 % Kenton % (Auto) 9.6 % Eos % (Auto) 0.1 % Baso % (Auto) 0.1 % Neut # (Auto) 6.87 H (1.4-6.5) K/uL Lymph # (Auto) 2.24 (1.2-3.4) K/uL Kenton # (Auto) 0.97 H (0.11-0.59) K/uL Eos # (Auto) 0.01 (0-0.5) K/uL Baso # (Auto) 0.01 (0-0.2) K/uL Immature Gran # (Auto) 0.04 H (0.00-0.02) K/uL PT 12.9 H (9.0-12.0) Seconds INR 1.2 H (0.9-1.1) Sodium 162 H* (136-145) mmol/L Potassium 4.3 (3.5-5.1) mmol/L Chloride 130 H (98-107) mmol/L Carbon Dioxide 24 (21-32) mmol/L Anion Gap 8.0 (3-11) BUN 88 H (7-18) mg/dl Creatinine 2.71 H (0.6-1.2) mg/dl Est Cr Clr Drug Dosing Not Reportable Est GFR ( Amer) 17.6 Est GFR (Non-Af Amer) 15.2 BUN/Creatinine Ratio 32.6 H (10-20) Glucose 443 H* (70-99) mg/dl Lactate (0.4-2.0) mmol/L Calcium 9.1 (8.5-10.1) mg/dl Magnesium 2.5 H (1.8-2.4) mg/dl Total Bilirubin 0.5 (0.2-1) mg/dl AST 15 (15-37) U/L ALT 23 (12-78) U/L Alkaline Phosphatase 86 (45-117) U/L Troponin I 0.109 H* (0-0.045) ng/ml Total Protein 6.6 (6.4-8.2) gm/dl Albumin 3.1 L (3.4-5.0) gm/dl Globulin 3.5 (2.5-4.0) gm/dl Albumin/Globulin Ratio 0.9 (0.9-2) Beta-Hydroxybutyric Acd 9.97 H (0.2-2.81) mg/dl Procalcitonin (0-0.5) ng/ml TSH < 0.005 L (0.300-4.500) uIu/ml Free T4 2.71 H (0.8-1.6) ng/dl COVID-19 Eval Order COVID-19 PCR (Negative) 11/16/19 11/16/19 11/16/19 Range/Units 18:08 20:13 20:13 WBC (4.8-10.8) K/uL RBC (4.2-5.4) M/uL Hgb (12.0-16.0) g/dL Hct (37-47) % MCV (80-100) fL MCH (25-34) pg MCHC (32-36) g/dL RDW Std Deviation (36.4-46.3) fL RDW Coeff of Salvatore (11.5-14.5) % Plt Count (130-400) K/uL MPV (7.4-10.4) fL Immature Gran % (Auto) % Neut % (Auto) % Lymph % (Auto) % Kenton % (Auto) % Eos % (Auto) % Baso % (Auto) % Neut # (Auto) (1.4-6.5) K/uL Lymph # (Auto) (1.2-3.4) K/uL Kenton # (Auto) (0.11-0.59) K/uL Eos # (Auto) (0-0.5) K/uL Baso # (Auto) (0-0.2) K/uL Immature Gran # (Auto) (0.00-0.02) K/uL PT (9.0-12.0) Seconds INR (0.9-1.1) Sodium (136-145) mmol/L Potassium (3.5-5.1) mmol/L Chloride (98-107) mmol/L Carbon Dioxide (21-32) mmol/L Anion Gap (3-11) BUN (7-18) mg/dl Creatinine (0.6-1.2) mg/dl Est Cr Clr Drug Dosing Est GFR ( Amer) Est GFR (Non-Af Amer) BUN/Creatinine Ratio (10-20) Glucose (70-99) mg/dl Lactate (0.4-2.0) mmol/L Calcium (8.5-10.1) mg/dl Magnesium (1.8-2.4) mg/dl Total Bilirubin (0.2-1) mg/dl AST (15-37) U/L ALT (12-78) U/L Alkaline Phosphatase (45-117) U/L Troponin I (0-0.045) ng/ml Total Protein (6.4-8.2) gm/dl Albumin (3.4-5.0) gm/dl Globulin (2.5-4.0) gm/dl Albumin/Globulin Ratio (0.9-2) Beta-Hydroxybutyric Acd (0.2-2.81) mg/dl Procalcitonin 0.10 (0-0.5) ng/ml TSH (0.300-4.500) uIu/ml Free T4 (0.8-1.6) ng/dl COVID-19 Eval Order Covid19 Done at [facility] COVID-19 PCR NEGATIVE (Negative) 11/16/19 Range/Units 20:14 WBC (4.8-10.8) K/uL RBC (4.2-5.4) M/uL Hgb (12.0-16.0) g/dL Hct (37-47) % MCV (80-100) fL MCH (25-34) pg MCHC (32-36) g/dL RDW Std Deviation (36.4-46.3) fL RDW Coeff of Salvatore (11.5-14.5) % Plt Count (130-400) K/uL MPV (7.4-10.4) fL Immature Gran % (Auto) % Neut % (Auto) % Lymph % (Auto) % Kenton % (Auto) % Eos % (Auto) % Baso % (Auto) % Neut # (Auto) (1.4-6.5) K/uL Lymph # (Auto) (1.2-3.4) K/uL Kenton # (Auto) (0.11-0.59) K/uL Eos # (Auto) (0-0.5) K/uL Baso # (Auto) (0-0.2) K/uL Immature Gran # (Auto) (0.00-0.02) K/uL PT (9.0-12.0) Seconds INR (0.9-1.1) Sodium (136-145) mmol/L Potassium (3.5-5.1) mmol/L Chloride (98-107) mmol/L Carbon Dioxide (21-32) mmol/L Anion Gap (3-11) BUN (7-18) mg/dl Creatinine (0.6-1.2) mg/dl Est Cr Clr Drug Dosing Est GFR ( Amer) Est GFR (Non-Af Amer) BUN/Creatinine Ratio (10-20) Glucose (70-99) mg/dl Lactate 2.4 H* (0.4-2.0) mmol/L Calcium (8.5-10.1) mg/dl Magnesium (1.8-2.4) mg/dl Total Bilirubin (0.2-1) mg/dl AST (15-37) U/L ALT (12-78) U/L Alkaline Phosphatase (45-117) U/L Troponin I (0-0.045) ng/ml Total Protein (6.4-8.2) gm/dl Albumin (3.4-5.0) gm/dl Globulin (2.5-4.0) gm/dl Albumin/Globulin Ratio (0.9-2) Beta-Hydroxybutyric Acd (0.2-2.81) mg/dl Procalcitonin (0-0.5) ng/ml TSH (0.300-4.500) uIu/ml Free T4 (0.8-1.6) ng/dl COVID-19 Eval Order COVID-19 PCR (Negative) Administered Medications Heparin Sodium (Porcine) (Heparin Sod 5,000 Unit/0.5 Ml Vial) 5,000 units SQ Q8 REESE Stop: 12/16/19 22:41 Last Admin: 11/16/19 23:36 Dose: 5,000 units Documented by: [id number] Cosigned by: [id number] Insulin Aspart (Insulin Aspart 100 Units/Ml 3 Ml Pen) 0 units SC ACHS REESE Stop: 12/16/19 22:41 Last Admin: 11/16/19 23:37 Dose: 5 units Documented by: [id number] Cosigned by: [id number] Discontinued Medications Sodium Chloride (Nss 1000ml) 1,000 mls @ 999 mls/hr IV .Q1H1M ONE Stop: 11/16/19 19:21 Last Infusion: 11/16/19 19:55 Dose: 0 mls/hr Documented by: [id number] Admin: 11/16/19 18:34 Dose: 999 mls/hr Documented by: [id number] Sodium Chloride (1/2 Nss) 1,000 mls @ 500 mls/hr IV .Q2H STA Stop: 11/16/19 21:58 Last Infusion: 11/16/19 22:08 Dose: 0 mls/hr Documented by: [id number] Admin: 11/16/19 20:16 Dose: 500 mls/hr Documented by: [id number] Sodium Chloride (1/2 Nss) 1,000 mls @ 250 mls/hr IV .Q4H STA Stop: 11/17/19 00:06 Last Infusion: 11/17/19 01:24 Dose: 0 mls/hr Documented by: [id number] Admin: 11/16/19 21:12 Dose: 250 mls/hr Documented by: [id number] Sodium Chloride (1/2 Nss) 1,000 mls @ 150 mls/hr IV .Q6H40M REESE Stop: 12/17/19 00:00 Last Infusion: 11/17/19 01:36 Dose: 0 mls/hr Documented by: [id number] Admin: 11/16/19 23:28 Dose: 80 mls/hr Documented by: [id number] Insulin Glargine (Insulin Glargine Solostar 100 Units/Ml 3 Ml Pen) 5 units SC NOW STA Stop: 11/16/19 21:26 Last Admin: 11/16/19 22:09 Dose: 5 units Documented by: [id number] Cosigned by: [id number] Insulin Human Regular (Novolin-R Insulin Per Unit Charge) 10 units IV NOW STA Stop: 11/16/19 19:14 Last Admin: 11/16/19 20:19 Dose: 10 units Documented by: [id number] Cosigned by: [id number] Metoprolol Tartrate (Metoprolol Tartrate 1 Mg/Ml Vial) 2.5 mg IV NOW STA Stop: 11/16/19 20:26 Last Admin: 11/16/19 21:12 Dose: 2.5 mg Documented by: [id number] Pneumococcal Polyvalent Vaccine (Pneumococcal Polysaccharides 25 Mcg/0.5 Ml Vial/Syr) 25 mcg IM .ONCE ONE Stop: 11/16/19 23:58 Last Admin: 11/17/19 01:21 Dose: Not Given Documented by: [id number] Discharge Plan Visit Data Chief Complaint: Abnormal Labs/Diagnostic Testing Stated Complaint: ABNORMAL LABS, ED Provider: Fernando Eldridge Discharge Problem: Hyperglycemia due to type 2 diabetes mellitus, Acute hypernatremia, Acute renal failure (ARF), Non-ST elevation IL (NSTEMI), Acute dehydration Patient Disposition: Admitted As Inpatient Discharge Instructions Interventions: ED Discharge Assessment Last Done: 11/16/19 22:06 Discharge Problem: Hyperglycemia due to type 2 diabetes mellitus Qualifiers: Diabetes mellitus mcfp insulin use: with mcfp use Qualified Code(s): E11.65 - Type 2 diabetes mellitus with hyperglycemia Acute renal failure (ARF) Qualifiers: Acute renal failure type: unspecified Qualified Code(s): N17.9 - Acute kidney failure, unspecified
[2019-11-16] MEDS ORDERED: NovoLIN-R INSULIN PER UNIT CHARGE IV STA (19:13)
[2019-11-16 19:14] LABS: Beta-Hydroxybutyrate 9.97 mg/dl (0.2-2.81); T4 Free Thyroxine 2.71 ng/dl (0.8-1.6)
--- NOTE | 2019-11-16 19:29 | CT Scan Report ---
CT head/brain wo con CLINICAL HISTORY: 89 years-old Female with weakness. Acute weakness with dementia TECHNIQUE: Multiple axial CT images of the head were obtained without contrast. A dose lowering tech nique was utilized adhering to the principles of ALARA. CT DOSE: 1311.06 mGy.cm COMPARISON: None. FINDINGS: No acute intracranial hemorrhage, midline shift, intracranial mass, hydrocephalus, territorial ischem ia or abnormal extra-axial collection. Age-related involutional changes with ex vacuo ventriculomegal y. Senescent calcifications of the basal ganglia. Cerebral vascular calcifications. Patchy white enrique er hypodensities suggest chronic microvascular ischemic disease. 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 The calvarium is intact. The paranasal sinuses, mastoid air cells, and middle ear cavities are clear . IMPRESSION: No acute intracranial abnormality. ACT 112: Negative or not required by law. The above report was generated using voice recognition software. It may contain grammatical, syntax o r spelling errors. Electronically signed by: Maximus Dc M.D. 11/16/2019 7:28 PM
[2019-11-16] MEDS ORDERED: SODIUM CHLORIDE 0.45 % 1,000 ML IV STA ×2 (19:59→20:07)
[2019-11-16] MEDS ORDERED: METOPROLOL TARTRATE 1 MG/ML VIAL IV STA (20:25)
--- NOTE | 2019-11-16 21:17 | History & Physical Report ---
Date of Service November 16, 2019 Assessment & Plan (1) Encephalopathy: Delirium on dementia Multifactorial : Complicated UTI, possible sepsis, rule out obstructive uropathy (history of kidney stones as per records) Hypernatremia, ARF secondary to above Troponin elevation secondary to tachycardia in the setting of kidney dysfunction hx CAD/PVD as per records chronic LBBB mild aortic stenosis Hyperthyroidism/hx multinodular goiter as per records, no thyroid storm on the basis of score of 15 on Chatterjee-Wartofsky point scale Patient family refused outpatient Endocrinology referral as per records. DM2 insulin requiring Patient markedly hyperglycemic. Reasonable control as of recent outpatient hemoglobin A1c of 7.4 last month Medical telemetry given troponin elevation Cultures, IV Cefepime Careful correction of sodium with 0.[address] abdomen pelvis RE poor p.o. intake, ARF rule out obstructive uropathy, history kidney stones as per records Follow renal function, appropriate to hold ACEI until creatinine back to baseline Nephrology consult if with worsening kidney function Follow troponin, TTE if with progression Initiate beta-renny and methimazole Rx, outpatient Endocrinology consultation Basal insulin, ISS BG goal [id number], update hemoglobin A1c DVT prophylaxis. Heparin subcu DNR as per 's discussion with custodial provider Attempted to update family of developments and plan of care over the phone. Mr. Paulo Silva (), contact #[phone]. Mr. Willie Silva (son), contact #[phone]. No answer. Text document was generated using [employer] voice recognition software. It may contain grammatical or spelling errors. Kindly contact undersigned for clarification of any documentation item in question. History of Present Illness Chief Complaint: Abnormal blood work, decreased oral intake as per records Primary Care Provider: Zulay Escamilla MD History obtained from ER provider and records. Limited history from patient secondary to nonverbal state. Medical history significant for CAD/PVD as per records, chronic LBBB, mild aortic stenosis (TTE 2010), dementia, aspiration risk, hyperthyroidism/hx multinodular goiter as per records, DM2 insulin requiring, history of kidney stones as per records. Last confinement August 2016 for aspiration pneumonia. Patient with poor oral intake at custodial the last 5 days as per records. Spitting out the food. No choking/cough episodes noted. No abdominal pain complaints. Abnormal results on outpatient lab work today : serum sodium of 163, serum creatinine 2.4. Serum TSH 0.1, free T4 2.62 Patient sent to ER for evaluation. Medical History as above Thyroid scan (04/2017): Multinodular goiter with hyperfunctioning nodule lower pole of left thyroid gland. 24-hour radioiodine uptake is 13%. 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 Allergies Allergy/AdvReac Type Severity Reaction Status Date / Time No Known Allergies Allergy Unknown Verified 11/16/19 20:36 Home Medications Home Medications Medication Instructions Recorded Confirmed Type acetaminophen [Tylenol] 650 mg PO Q4 PRN 11/16/19 11/16/19 History atorvastatin [Lipitor] 40 mg PO DAILY 11/16/19 11/16/19 History calcium carbonate-vitamin D3 1 tab PO AMHS 11/16/19 11/16/19 History [Oyster Shell Calcium-Vit D3] cholecalciferol (vitamin D3) 1,000 unit PO DAILY 11/16/19 11/16/19 History [Vitamin D3] insulin aspart U-100 [Novolog 6 unit SUBCUT .BID UD 11/16/19 11/16/19 History U-100 Insulin aspart] insulin glargine [Lantus U-100 10 unit SUBCUT HS 11/16/19 11/16/19 History Insulin] lisinopril [Zestril] 20 mg PO DAILY 11/16/19 11/16/19 History miconazole nitrate [Desenex] 1 applic TOPICAL BID 11/16/19 11/16/19 History omega 8-kxr-cfe-fish oil [Fish Oil] 1 cap PO DAILY 11/16/19 11/16/19 History polyethylene glycol 3350 [Miralax] 17 g PO AMHS 11/16/19 11/16/19 History sennosides-docusate sodium 2 tab PO AMHS 11/16/19 11/16/19 History [Senexon-S] Past Med/Surg History Social History Smoking Status: Unknown if ever smoked Preferred Language: Yemeni Communication Ability: Impaired Communication Ability Comment: nonverbal 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 Hand Required: No Beliefs That Will Affect Care: None Current Living Situation: Senior Living Current Living Situation Comment: [facility] Feels Safe at Home: Yes Review of Systems Review of Systems: Could not be reliably obtained Physical Exam Physical Exam: GENERAL: Comfortable, nonverbal, no respiratory distress SKIN: Normal color, warm HEENT: [place] palpebral conjunctivae, no ptosis, dry buccal mucosa NECK : Supple, no tenderness CHEST : Decreased breath sounds , no tenderness HEART : Tachycardic, systolic murmur ABDOMEN: Some distention, nontender EXTREMITIES : No LE swelling/tenderness, no other conspicuous deformities noted NEUROLOGIC : Nonverbal, incoherent, no facial asymmetry, gait and stance not assessed Results & Data Results & Data ([facility]) Vital Signs (Past 12 Hours) Vital Signs Temp Pulse Resp BP Pulse Ox 11/16/19 21:12 103 H 172/88 H 11/16/19 20:15 101 H 28 H 171/69 H 99 11/16/19 20:01 90 22 98 11/16/19 20:00 94 H 27 H 172/70 H 98 11/16/19 19:31 96 H 20 98 11/16/19 19:30 96 H 26 H 152/67 H 98 11/16/19 19:25 97 H 22 159/69 H 98 11/16/19 19:01 98 H 22 97 11/16/19 19:00 98 H 24 132/70 98 11/16/19 18:56 37.3 C 11/16/19 18:31 107 H 28 H 97 11/16/19 18:30 106 H 30 H 138/77 97 11/16/19 18:17 107 H 31 H 97 11/16/19 18:03 37.0 C 109 H 24 129/65 98 11/16/19 18:00 107 H 31 H 138/65 97 Laboratory Results Laboratory Results WBC 10.14 K/uL (4.8-10.8) 11/16/19 18:08 RBC 5.48 M/uL (4.2-5.4) H 11/16/19 18:08 Hgb 15.8 g/dL (12.0-16.0) 11/16/19 18:08 Hct 50.5 % (37-47) H 11/16/19 18:08 MCV 92.2 fL (80-100) 11/16/19 18:08 MCH 28.8 pg (25-34) 11/16/19 18:08 MCHC 31.3 g/dL (32-36) L 11/16/19 18:08 RDW Std Deviation 50.7 fL (36.4-46.3) H 11/16/19 18:08 RDW Coeff of Salvatore 15.0 % (11.5-14.5) H 11/16/19 18:08 Plt Count 170 K/uL (130-400) 11/16/19 18:08 MPV 14.5 fL (7.4-10.4) H 11/16/19 18:08 Immature Gran % (Auto) 0.4 % 11/16/19 18:08 Neut % (Auto) 67.7 % 11/16/19 18:08 Lymph % (Auto) 22.1 % 11/16/19 18:08 [place] % (Auto) 9.6 % 11/16/19 18:08 Eos % (Auto) 0.1 % 11/16/19 18:08 Baso % (Auto) 0.1 % 11/16/19 18:08 Neut # (Auto) 6.87 K/uL (1.4-6.5) H 11/16/19 18:08 Lymph # (Auto) 2.24 K/uL (1.2-3.4) 11/16/19 18:08 [place] # (Auto) 0.97 K/uL (0.11-0.59) H 11/16/19 18:08 Eos # (Auto) 0.01 K/uL (0-0.5) 11/16/19 18:08 Baso # (Auto) 0.01 K/uL (0-0.2) 11/16/19 18:08 Immature Gran # (Auto) 0.04 K/uL (0.00-0.02) H 11/16/19 18:08 PT 12.9 Seconds (9.0-12.0) H 11/16/19 18:08 INR 1.2 (0.9-1.1) H 11/16/19 18:08 Sodium 162 mmol/L (136-145) H* 11/16/19 18:08 Potassium 4.3 mmol/L (3.5-5.1) 11/16/19 18:08 Chloride 130 mmol/L (98-107) H 11/16/19 18:08 Carbon Dioxide 24 mmol/L (21-32) 11/16/19 18:08 Anion Gap 8.0 (3-11) 11/16/19 18:08 BUN 88 mg/dl (7-18) H 11/16/19 18:08 Creatinine 2.71 mg/dl (0.6-1.2) H 11/16/19 18:08 Est Cr Clr Drug Dosing Not Reportable 11/16/19 18:08 Est GFR ( Amer) 17.6 11/16/19 18:08 Est GFR (Non-Af Amer) 15.2 11/16/19 18:08 BUN/Creatinine Ratio 32.6 (10-20) H 11/16/19 18:08 Glucose 443 mg/dl (70-99) H* 11/16/19 18:08 Lactate 2.4 mmol/L (0.4-2.0) H* 11/16/19 20:14 Calcium 9.1 mg/dl (8.5-10.1) 11/16/19 18:08 Magnesium 2.5 mg/dl (1.8-2.4) H 11/16/19 18:08 Total Bilirubin 0.5 mg/dl (0.2-1) 11/16/19 18:08 AST 15 U/L (15-37) 11/16/19 18:08 ALT 23 U/L (12-78) 11/16/19 18:08 Alkaline Phosphatase 86 U/L (45-117) 11/16/19 18:08 Troponin I 0.109 ng/ml (0-0.045) H* 11/16/19 18:08 Total Protein 6.6 gm/dl (6.4-8.2) 11/16/19 18:08 Albumin 3.1 gm/dl (3.4-5.0) L 11/16/19 18:08 Globulin 3.5 gm/dl (2.5-4.0) 11/16/19 18:08 Albumin/Globulin Ratio 0.9 (0.9-2) 11/16/19 18:08 Beta-Hydroxybutyric Acd 9.97 mg/dl (0.2-2.81) H 11/16/19 18:08 Procalcitonin 0.10 ng/ml (0-0.5) 11/16/19 18:08 TSH < 0.005 uIu/ml (0.300-4.500) L 11/16/19 18:08 Free T4 2.71 ng/dl (0.8-1.6) H 11/16/19 18:08 COVID-19 Eval Order Covid19 Done at [facility] 11/16/19 20:13 COVID-19 PCR NEGATIVE (Negative) 11/16/19 20:13 Laboratory Results WBC 10.14 K/uL (4.8-10.8) 11/16/19 18:08 RBC 5.48 M/uL (4.2-5.4) H 11/16/19 18:08 Hgb 15.8 g/dL (12.0-16.0) 11/16/19 18:08 Hct 50.5 % (37-47) H 11/16/19 18:08 MCV 92.2 fL (80-100) 11/16/19 18:08 MCH 28.8 pg (25-34) 11/16/19 18:08 MCHC 31.3 g/dL (32-36) L 11/16/19 18:08 RDW Std Deviation 50.7 fL (36.4-46.3) H 11/16/19 18:08 RDW Coeff of Salvatore 15.0 % (11.5-14.5) H 11/16/19 18:08 Plt Count 170 K/uL (130-400) 11/16/19 18:08 MPV 14.5 fL (7.4-10.4) H 11/16/19 18:08 Immature Gran % (Auto) 0.4 % 11/16/19 18:08 Neut % (Auto) 67.7 % 11/16/19 18:08 Lymph % (Auto) 22.1 % 11/16/19 18:08 [place] % (Auto) 9.6 % 11/16/19 18:08 Eos % (Auto) 0.1 % 11/16/19 18:08 Baso % (Auto) 0.1 % 11/16/19 18:08 Neut # (Auto) 6.87 K/uL (1.4-6.5) H 11/16/19 18:08 Lymph # (Auto) 2.24 K/uL (1.2-3.4) 11/16/19 18:08 [place] # (Auto) 0.97 K/uL (0.11-0.59) H 11/16/19 18:08 Eos # (Auto) 0.01 K/uL (0-0.5) 11/16/19 18:08 Baso # (Auto) 0.01 K/uL (0-0.2) 11/16/19 18:08 Immature Gran # (Auto) 0.04 K/uL (0.00-0.02) H 11/16/19 18:08 PT 12.9 Seconds (9.0-12.0) H 11/16/19 18:08 INR 1.2 (0.9-1.1) H 11/16/19 18:08 Sodium 160 mmol/L (136-145) H* 11/17/19 00:32 Potassium 3.0 mmol/L (3.5-5.1) L D 11/17/19 00:32 Chloride 129 mmol/L (98-107) H 11/17/19 00:32 Carbon Dioxide 26 mmol/L (21-32) 11/17/19 00:32 Anion Gap 5.0 (3-11) 11/17/19 00:32 BUN 86 mg/dl (7-18) H 11/17/19 00:32 Creatinine 2.61 mg/dl (0.6-1.2) H 11/17/19 00:32 Est Cr Clr Drug Dosing Not Reportable 11/17/19 00:32 Est GFR ( Amer) 18.4 11/17/19 00:32 Est GFR (Non-Af Amer) 15.9 11/17/19 00:32 BUN/Creatinine Ratio 32.8 (10-20) H 11/17/19 00:32 Glucose 313 mg/dl (70-99) H* 11/17/19 00:32 POC Glucose 297 mg/dl (70-99) H 11/16/19 23:20 Lactate 3.1 mmol/L (0.4-2.0) H* 11/16/19 23:08 Calcium 9.2 mg/dl (8.5-10.1) 11/17/19 00:32 Magnesium 2.5 mg/dl (1.8-2.4) H 11/16/19 18:08 Total Bilirubin 0.5 mg/dl (0.2-1) 11/16/19 18:08 AST 15 U/L (15-37) 11/16/19 18:08 ALT 23 U/L (12-78) 11/16/19 18:08 Alkaline Phosphatase 86 U/L (45-117) 11/16/19 18:08 Troponin I 0.115 ng/ml (0-0.045) H* 11/17/19 00:32 Total Protein 6.6 gm/dl (6.4-8.2) 11/16/19 18:08 Albumin 3.1 gm/dl (3.4-5.0) L 11/16/19 18:08 Globulin 3.5 gm/dl (2.5-4.0) 11/16/19 18:08 Albumin/Globulin Ratio 0.9 (0.9-2) 11/16/19 18:08 Beta-Hydroxybutyric Acd 7.27 mg/dl (0.2-2.81) H 11/17/19 00:32 Procalcitonin 0.10 ng/ml (0-0.5) 11/16/19 18:08 TSH < 0.005 uIu/ml (0.300-4.500) L 11/16/19 18:08 Free T4 2.71 ng/dl (0.8-1.6) H 11/16/19 18:08 Urine Color Yellow 11/17/19 01:15 Urine Appearance Cloudy (Clear) A 11/17/19 01:15 Urine pH 5.0 (4.5-7.5) 11/17/19 01:15 Ur Specific [place] >= 1.030 (1.000-1.030) 11/17/19 01:15 Urine Protein Trace (Negative) H 11/17/19 01:15 Urine Glucose (UA) 1+ (Negative) H 11/17/19 01:15 Urine Ketones Trace (Negative) H 11/17/19 01:15 Urine Blood 2+ (Negative) H 11/17/19 01:15 Urine Nitrite Negative (Negative) 11/17/19 01:15 Urine Bilirubin Negative (Negative) 11/17/19 01:15 Urine Urobilinogen Negative (Negative) 11/17/19 01:15 Ur Leukocyte Esterase 2+ (Negative) H 11/17/19 01:15 Urine RBC 5-10 /hpf (0-4) H 11/17/19 01:15 Urine WBC >30 /hpf (0-5) H 11/17/19 01:15 Ur Epithelial Cells >30 /lpf (0-5) H 11/17/19 01:15 Calcium Oxalate Crystal Present (None Prsent) A 11/17/19 01:15 Urine Bacteria 3+ (Negative) H 11/17/19 01:15 Hyaline Casts 10-30 /lpf (0-5) H 11/17/19 01:15 Nasal Screen MRSA (PCR) Negative (Negative) 11/17/19 01:06 COVID-19 Eval Order Covid19 Done at [facility] 11/16/19 20:13 COVID-19 PCR NEGATIVE (Negative) 11/16/19 20:[address] head: No acute intracranial abnormality. Chest x-ray : No acute process. EKG as per my interpretation : Rate 110, sinus tachycardia, LAD, LAFB, LBBB
[2019-11-16] MEDS ORDERED: INSULIN GLARGINE SOLOSTAR 100 UNITS/ML 3 ML PEN SC STA (21:25)
[2019-11-16] MEDS ORDERED: GLUCOSE 40% GEL 15 GM TUBE PO PRN (22:42)
[2019-11-16] MEDS ORDERED: DEXTROSE 50% 50 ML SYRINGE IV PRN (22:42)
[2019-11-16] MEDS ORDERED: CARBOHYDRATES FOR HYPOGLYCEMIA PO PRN (22:42)
[2019-11-16] MEDS ORDERED: GLUCOSE 10 TABS/TUBE PO PRN (22:42)
[2019-11-16] MEDS ORDERED: GLUCAGON FOR INJ 1 MG VIAL SQ PRN (22:42)
[2019-11-16] MEDS ORDERED: ACETAMINOPHEN 325 MG TAB PO PRN (22:42)
[2019-11-16] MEDS ORDERED: PROMETHAZINE HCL 12.5 MG in SODIUM CHLORIDE 0.9% 50 ML IV PRN (22:42)
[2019-11-16] MEDS: HEPARIN SOD 5,000 UNIT/0.5 ML VIAL SQ SCH (23:36)
[2019-11-16] MEDS: INSULIN ASPART 100 UNITS/ML 3 ML PEN SC SCH (23:37)
[2019-11-16] MEDS ORDERED: PNEUMOCOCCAL ADMINISTRATION CHARGE ONE (23:57)
[2019-11-16] MEDS ORDERED: PNEUMOCOCCAL POLYSACCHARIDES 25 MCG/0.5 ML VIAL/SYR IM ONE (23:57)
[2019-11-17] MEDS ORDERED: SODIUM CHLORIDE 0.45 % 1,000 ML IV SCH
[2019-11-17] MEDS ORDERED: INSULIN GLARGINE SOLOSTAR 100 UNITS/ML 3 ML PEN SC STA ×2 (00:46→01:26)
[2019-11-17 01:12] LABS: BUN Creatinine Ratio 32.8 (10-20); Blood Urea Nitrogen 86 mg/dl (7-18); Calcium 9.2 mg/dl (8.5-10.1); Carbon Dioxide 26 mmol/L (21-32); Chloride 129 mmol/L (98-107); Est GFR (African American) 18.4; Est GFR (Non-African American) 15.9; Glucose 313 mg/dl (70-99); Sodium 160 mmol/L (136-145); Troponin I 0.115 ng/ml (0-0.045)
[2019-11-17] MEDS ORDERED: POTASSIUM CHLORIDE 40 MEQ in SODIUM CHLORIDE 0.45 % 1,000 ML IV SCH (01:30)
[2019-11-17 01:31] LABS: Beta-Hydroxybutyrate 7.27 mg/dl (0.2-2.81)
[2019-11-17 01:46] LABS: Appearance Urine Cloudy (Clear); Bilirubin Urine Negative (Negative); Blood Urine 2+ (Negative); Color Urine Yellow; Glucose Urine UA 1+ (Negative); Ketones Urine Trace (Negative); Leukocyte Esterase Urine 2+ (Negative); Nitrite Urine Negative (Negative); Protein Urine Trace (Negative); Specific Gravity Urine >= 1.030 (1.000-1.030); Urobilinogen Urine Negative (Negative)
[2019-11-17 01:59] LABS: Calcium Oxalate Crystals Urine Present (None Prsent); Epithelial Cell Urine >30 /lpf (0-5)
[2019-11-17 02:00] LABS: Bacteria Urine 3+ (Negative); WBC Urine >30 /hpf (0-5)
[2019-11-17] MEDS: POTASSIUM CHLORIDE / WTR 10 MEQ/100 ML PLCT IV SCH ×5 (02:01→08:14)
[2019-11-17] MEDS ORDERED: CEFEPIME 2,000 MG/20 ML VIAL IV STA (02:28)
[2019-11-17 06:00] LABS: Estimated Average Glucose 171 mg/dl; Hemoglobin A1C 7.6 % (4.5-5.6)
[2019-11-17] MEDS: HEPARIN SOD 5,000 UNIT/0.5 ML VIAL SQ SCH ×3 (06:09→21:06)
[2019-11-17 06:58] LABS: Partial Thromboplastin Ratio 1.3; Partial Thromboplastin Time 36.5 Seconds (21.0-31.0)
[2019-11-17 07:06] LABS: BUN Creatinine Ratio 42.1 (10-20); Blood Urea Nitrogen 85 mg/dl (7-18); Carbon Dioxide 22 mmol/L (21-32); Chloride 133 mmol/L (98-107); Est GFR (African American) 24.9; Est GFR (Non-African American) 21.5; Glucose 277 mg/dl (70-99); Sodium 158 mmol/L (136-145); Troponin I 0.163 ng/ml (0-0.045)
[2019-11-17 07:33] LABS: Hemoglobin 13.2 g/dL (12.0-16.0); Mean Corpuscular Hemoglobin 28.9 pg (25-34); Mean Corpuscular Hgb Conc 31.4 g/dL (32-36); Mean Corpuscular Volume 91.9 fL (80-100); RDW Coefficient of Variation 14.8 % (11.5-14.5); Red Blood Count 4.57 M/uL (4.2-5.4); White Blood Count 8.78 K/uL (4.8-10.8)
[2019-11-17 07:35] LABS: Basophils # (auto) 0.01 K/uL (0-0.2); Basophils % (auto) 0.1 %; Eosinophils # (auto) 0.09 K/uL (0-0.5); Immature Granulocytes # (auto) 0.03 K/uL (0.00-0.02); Immature Granulocytes % (auto) 0.3 %; Lymphocytes # (auto) 2.61 K/uL (1.2-3.4); Lymphocytes % (auto) 29.7 %; Mean Platelet Volume 14.4 fL (7.4-10.4); Monocytes # (auto) 0.76 K/uL (0.11-0.59); Monocytes % (auto) 8.7 %; Neutrophils # (auto) 5.28 K/uL (1.4-6.5); Neutrophils % (auto) 60.2 %; Platelet Count 115 K/uL (130-400); Platelet Estimate Decreased (Normal)
[2019-11-17] MEDS ORDERED: CEFEPIME CONSULT ACTIVE PRN (07:58)
[2019-11-17] MEDS: INSULIN ASPART 100 UNITS/ML 3 ML PEN SC SCH ×4 (08:19→21:01)
--- NOTE | 2019-11-17 08:28 | CT Scan Report ---
CT SCAN OF THE ABDOMEN AND PELVIS WITHOUT IV CONTRAST CLINICAL HISTORY: Poor appetite. Renal insufficiency. COMPARISON STUDY: Abdominal CT dated 07/29/2016. TECHNIQUE: CT scan of the abdomen and pelvis is performed from the lung bases to the proximal femora. Images are reviewed in the axial, sagittal, and coronal planes. IV contrast was not administered for this examination as per the referring clinician. Note that the examination is suboptimal without ora l and IV contrast. The Examination is also degraded by motion artifact, and by streak artifact from t he arms which could not be elevated above the abdomen. A dose lowering technique was utilized adherin g to the principles of ALARA. CT DOSE: 415.15 mGy.cm FINDINGS: Lung bases: The heart is normal in size and without pericardial effusion. The coronary arteries and m itral annulus are densely calcified. There is a small hiatal hernia. The lung bases are clear noting dependent atelectasis. Liver: The unenhanced liver is normal in size, contour, and attenuation. There is minimal central int rahepatic biliary ductal dilatation. Gallbladder: Surgically absent. Spleen: Normal in size and attenuation. Pancreas: The unenhanced pancreas is atrophic and grossly unremarkable. Adrenal glands: Unremarkable. Kidneys: The unenhanced kidneys are atrophic and without hydronephrosis. There are no renal calculi c learly identified. There are numerous bilateral renal vascular calcifications. There is no evidence o f contour deforming renal mass lesion. Abdominal vasculature: The abdominal aorta is normal in course and caliber noting advanced atheroscle rotic calcification. Bowel: There is no bowel obstruction. Fecal retention is noted in the right:. Liquid stool is noted i n the left colon. The appendix is not identified. Peritoneum: There is no intraperitoneal free air or abdominal ascites. Lymphadenopathy: None. Pelvic viscera: The bladder is partially decompressed around a Lopez catheter. The bladder wall appea rs thickened and there is pericystic inflammation. Foci of intraluminal gas are likely related to ins trumentation. Skeletal structures: The skeletal structures are heterogeneously osteopenic. There is advanced lumbos acral spondylosis. A large hemangioma seen in the body of L4. Advanced arthritic change is seen in th e hips. No lytic or blastic lesions are seen. IMPRESSION: 1. Question cystitis. Correlation with clinical findings and urinalysis will be required. 2. Liquid stool is noted in left colon. Correlate clinically for evidence of a diarrheal illness. 3. Additional findings as above. ACT 112: Negative or not required by law. Electronically signed by: Lalo Gonzalez M.D. 11/17/2019 8:27 AM
[2019-11-17] MEDS: SODIUM CHLORIDE 0.45 % 1,000 ML IV SCH ×2 (09:35→22:42)
[2019-11-17] MEDS: methIMAzole 5 MG TABLET PO SCH (09:36)
[2019-11-17] MEDS: ATORVASTATIN 40 MG TAB PO SCH (09:36)
[2019-11-17] MEDS: ATENOLOL 25 MG TABLET PO SCH (09:37)
[2019-11-17] MEDS: PATIENT'S HEIGHT NEEDED SCH ×5 (09:59→11:11)
--- NOTE | 2019-11-17 11:11 | Nephrology Consultation ---
Date of Consultation November 17, 2019 Assessment & Plan (1) Hypernatremia: Presenting sodium 162 on 11/15 at 1800, down to 158 this am. Acceptable rate of improvement; cont 1/2 NS current rate of 50 mL hourly -increase fluid rate to 80 mL hourly -recheck bmp ordered for 1500 -low threshold for palliative consult Present on Admission?: Yes (2) Acute renal failure (ARF): baseline creatinine 0.8; presenting creatinine 2.7 on 11/15; down to 2.0 on 11/16. K was low on admission with hyperchloremia hypernatremia, hyperglycemia. had been getting K in fluids. Prerenal versus ATN in the setting of volume depletion, presumptive uti -daily bmp -cont nephrotoxin avoidance including holding OP lisinopril Present on Admission?: Yes (3) UTI (urinary tract infection): ua consistent with this; CT suggestive; urine cx pending; with elevated lactate, renal failure, UTI meets sepsis criteria - discussed with Dr Yoo -on cefepime -follow up pending cxs Present on Admission?: Yes (4) Sepsis: from presumptive UTI though work up pending; see above; lactate now wnl; has had aggressive fluids, on iv abtx Present on Admission?: Yes History of Present Illness Reason for Consultation: hypernatremia Requesting Physician: Dr Yoo Attending Physician: Josef Yoo MD History of Present Illness 89 y/o F whom I'm asked to see for hypernatremia was admitted last evening for evaluation of encephalopathy. PMH includes advanced dementia, IDDM, CAD, chronic LBBB, hyperthyroid, chronic aspiration concerns and per report in EPIC chronic aphasia. She is a facility resident and had been having poor po intake past 5 days: spitting out food but no choking or cough reported. unclear if taking medications or not. sNa 162 on presentation with creatinine 2.7, low TSH. Baseline creatinine 0.8 as recently as 06/2019; was 2.4 yesterday at her facility. She was started on D5W at 50 mL hourly after aggressive prior resuscitation (per I and 0 she is 3.5L positive) and this am sNa 158. Allergies Allergy/AdvReac Type Severity Reaction Status Date / Time No Known Allergies Allergy Unknown Verified 11/16/19 20:36 Home Medications Home Medications Medication Instructions Recorded Confirmed Type acetaminophen [Tylenol] 650 mg PO Q4 PRN 11/16/19 11/16/19 History atorvastatin [Lipitor] 40 mg PO DAILY 11/16/19 11/16/19 History calcium carbonate-vitamin D3 1 tab PO AMHS 11/16/19 11/16/19 History [Oyster Shell Calcium-Vit D3] cholecalciferol (vitamin D3) 1,000 unit PO DAILY 11/16/19 11/16/19 History [Vitamin D3] insulin aspart U-100 [Novolog 6 unit SUBCUT .BID UD 11/16/19 11/16/19 History U-100 Insulin aspart] insulin glargine [Lantus U-100 10 unit SUBCUT HS 11/16/19 11/16/19 History Insulin] lisinopril [Zestril] 20 mg PO DAILY 11/16/19 11/16/19 History miconazole nitrate [Desenex] 1 applic TOPICAL BID 11/16/19 11/16/19 History omega 6-eyf-iqu-fish oil [Fish Oil] 1 cap PO DAILY 11/16/19 11/16/19 History polyethylene glycol 3350 [Miralax] 17 g PO AMHS 11/16/19 11/16/19 History sennosides-docusate sodium 2 tab PO AMHS 11/16/19 11/16/19 History [Senexon-S] Patient History Medical History (Updated 11/17/19 @ 14:53 by Brenda Hammer MD, PhD) Alzheimer's dementia Diabetes mellitus, type II Goiter HTN (hypertension) Surgical History (Updated 11/17/19 @ 11:17 by Brenda Hammer MD, PhD) Hx of cholecystectomy S/P ALYSSA (total abdominal hysterectomy) Family History (Updated 11/17/19 @ 11:18 by Brenda Hammer MD, PhD) Other Stroke Social History Smoking Status: Unknown if ever smoked Preferred Language: Welsh Communication Ability: Unable Communication Ability Comment: nonverbal Airset Caster Required: No Beliefs That Will Affect Care: None marital status: Current Living Situation: Correction Current Living Situation Comment: [facility] Feels Safe at Home: Yes Review of Systems Review of Systems: All systems reviewed & are unremarkable except as noted in HPI & below Physical Exam Constitutional: well developed, + cachectic and + frail appearing; no acute distress Eyes: blinks and stares; does not track ENMT: Ears: no external ear abnormality Nose: no external nose abnormality Mouth: + dry oral mucous membranes Neck: no nuchal rigidity Respiratory: normal respiratory effort Auscultation: + diminished lung sounds; no crackles and no wheezes Cardiovascular: RRR, no murmur, no edema Gastrointestinal (Abdomen): Inspection/Auscultation: normal bowel sounds Percussion/Palpation: abdomen soft; abdomen nontender Musculoskeletal: Extremities: + limited ROM of extremities Skin: no rashes, warm and dry Neurologic: + obtunded Genitourinary: elam with some dark urine Results & Data ([facility]) Vital Signs (Past 12 Hours) Vital Signs Temp Pulse Pulse Resp BP Pulse Ox 11/17/19 07:36 36.8 C 69 18 112/72 97 11/17/19 07:09 74 11/17/19 03:23 36.6 C 86 18 128/55 L 95 11/17/19 00:53 128/66 11/17/19 00:35 96 H 11/16/19 23:21 36.8 C 77 20 89/50 L 95 Laboratory Results 11/17/19 06:32 11/17/19 06:32 Urinalysis: Cloudy urine specific gravity over 1030, 1+ glucose, trace ketones, 2+ blood, calcium oxalate crystals present, 3+ bacteria, greater than 30 white and epithelial cells, 5-10 red cells, 2+ leukocyte Estrace, negative nitrites blood and urine cxs pending Diagnostic Findings head ct no acute ic abnormality cxr no acute process ct abd/pelvis non con Lung bases: The heart is normal in size and without pericardial effusion. The coronary arteries and mitral annulus are densely calcified. There is a small hiatal hernia. The lung bases are clear noting dependent atelectasis. Liver: The unenhanced liver is normal in size, contour, and attenuation. There is minimal central intrahepatic biliary ductal dilatation. Gallbladder: Surgically absent. Spleen: Normal in size and attenuation. Pancreas: The unenhanced pancreas is atrophic and grossly unremarkable. Adrenal glands: Unremarkable. Kidneys: The unenhanced kidneys are atrophic and without hydronephrosis. There are no renal calculi clearly identified. There are numerous bilateral renal vascular calcifications. There is no evidence of contour deforming renal mass lesion. Abdominal vasculature: The abdominal aorta is normal in course and caliber noting advanced atherosclerotic calcification. Bowel: There is no bowel obstruction. Fecal retention is noted in the right:. Liquid stool is noted in the left colon. The appendix is not identified. Peritoneum: There is no intraperitoneal free air or abdominal ascites. Lymphadenopathy: None. Pelvic viscera: The bladder is partially decompressed around a [place] catheter. The bladder wall appears thickened and there is pericystic inflammation. Foci of intraluminal gas are likely related to instrumentation. Skeletal structures: The skeletal structures are heterogeneously osteopenic. There is advanced lumbosacral spondylosis. A large hemangioma seen in the body of L4. Advanced arthritic change is seen in the hips. No lytic or blastic lesions are seen. IMPRESSION: 1. Question cystitis. Correlation with clinical findings and urinalysis will be required. 2. Liquid stool is noted in left colon. Correlate clinically for evidence of a diarrheal illness. 3. Additional findings as above. (1) UTI (urinary tract infection) Hematuria presence: with hematuria Urinary tract infection type: acute cystitis Qualified Code(s): N30.01 - Acute cystitis with hematuria (2) Acute renal failure (ARF) Acute renal failure type: unspecified Qualified Code(s): N17.9 - Acute kidney failure, unspecified
--- NOTE | 2019-11-17 13:18 | Hospitalist Progress Note ---
Date of Service November 17, 2019 Assessment & Plan (1) Encephalopathy: Acute metabolic encephalopathy Unknown baseline mental status Sepsis, Hypernatremia, Dementia could be contributing CT head:No acute intracranial abnormality. Monitor Sepsis Lactic acidosis UTI Lactate levels normalized with IV fluids Blood/Urine Cx: pending Continue IV fluids Continue Cefepime Acute Kidney Injury Likely due to poor oral intake Prerenal Vs ATN in setting of sepsis Avoid nephrotoxic agents as able Continue IV fluids Monitor renal function Bladder scan as needed Hold Lisinopril Elevated Troponin Likely Type II ME in setting of sepsis/BINU/Tachycardia EKG: Chronic LBBB Hypernatremia Continue IV fluids Monitor sodium levels Appreciate neurology input H/O CAD/PVD Chronic LBBB Mild aortic stenosis Continue home medications as able Hyperthyroidism H/O Multinodular goiter Refused outpatient Endocrinology referral in the past Continue Methimazole DM II Last HbA1c:7.4 Continue Insulin therapy Monitor BGs DVT Px: Heparin SQ Code Status DNI/DNR Consulted palliative care to address goals of care Admission and Anticipated Discharge Date Admission Date: November 16, 2019 Subjective Patient is seen and examined at bedside Unable to obtain any history Patient is difficult to awaken Contacted family--No response No distress on exam Discussed with Nephrology and palliative care Review of Systems Review of Systems: Unobtainable due to reduced consciousness Physical Exam Physical Exam: Physical Exam: Vitals signs as noted above General Appearance:Thin, Chronic ill appearing, drowsy Head: normocephalic, Atraumatic Eyes: normal inspection Neck: supple, Trachea midline Respiratory/Chest: Decreased breath sounds, CTA, No accessory muscle use Cardiovascular: S1, S2, + murmur Abdomen/GI:Soft, Non tender, Bowel sounds present Extremities/Musculoskelatal:normal inspection, no edema Neurologic/Psych:Non verbal, Unable to perform complete neuro exam Skin: normal color, warm Results & Data Results & Data ([facility]) Vital Signs (Past 12 Hours) Vital Signs Temp Pulse Pulse Resp BP Pulse Ox 11/17/19 11:23 36.8 C 74 14 111/66 94 11/17/19 07:36 36.8 C 69 18 112/72 97 11/17/19 07:09 74 11/17/19 03:23 36.6 C 86 18 128/55 L 95 Laboratory Results Short CBC 11/16/19 11/17/19 Range/Units 18:08 06:32 WBC 10.14 8.78 (4.8-10.8) K/uL Hgb 15.8 13.2 (12.0-16.0) g/dL Hct 50.5 H 42.0 (37-47) % Plt Count 170 115 L (130-400) K/uL BMP 11/16/19 11/17/19 11/17/19 18:08 00:32 06:32 Sodium 162 H* 160 H* 158 H* Potassium 4.3 3.0 L D 5.0 D Chloride 130 H 129 H 133 H Carbon Dioxide 24 26 22 BUN 88 H 86 H 85 H Creatinine 2.71 H 2.61 H 2.03 H D Glucose 443 H* 313 H* 277 H Calcium 9.1 9.2 8.0 L Cardiac Enzymes 11/16/19 11/17/19 11/17/19 Range/Units 18:08 00:32 06:32 Troponin I 0.109 H* 0.115 H* 0.163 H* (0-0.045) ng/ml Liver Function 11/16/19 Range/Units 18:08 Total Bilirubin 0.5 (0.2-1) mg/dl AST 15 (15-37) U/L ALT 23 (12-78) U/L Alkaline Phosphatase 86 (45-117) U/L Albumin 3.1 L (3.4-5.0) gm/dl Urine 11/17/19 Range/Units 01:15 Urine Color Yellow Urine Appearance Cloudy A (Clear) Urine pH 5.0 (4.5-7.5) Ur Specific [place] >= 1.030 (1.000-1.030) Urine Protein Trace H (Negative) Urine Glucose (UA) 1+ H (Negative)
[2019-11-17 15:57] LABS: BUN Creatinine Ratio 43.6 (10-20); Calcium 9.1 mg/dl (8.5-10.1); Creatinine Clr Calc Pharmacy 16.7 ml/min; Est GFR (Non-African American) 22.4; Potassium 4.9 mmol/L (3.5-5.1)
[2019-11-17] MEDS ORDERED: INSULIN GLARGINE SOLOSTAR 100 UNITS/ML 3 ML PEN SC SCH ×2 (21:00)
[2019-11-17] MEDS: INSULIN GLARGINE SOLOSTAR 100 UNITS/ML 3 ML PEN SC SCH (21:05)
[2019-11-18] MEDS: CEFEPIME 1,000 MG in SYRINGE 0 ML IV SCH (03:22)
[2019-11-18] MEDS: HEPARIN SOD 5,000 UNIT/0.5 ML VIAL SQ SCH ×3 (05:51→21:08)
--- NOTE | 2019-11-18 06:00 | Electrocardiogram Report ---
Test Reason : Blood Pressure : / mmHG Vent. Rate : 110 BPM Atrial Rate : 110 BPM P-R Int : 150 ms QRS Dur : 130 ms QT Int : 376 ms P-R-T Axes : 039 -35 136 degrees QTc Int : 508 ms Sinus tachycardia Left axis deviation Left bundle branch block Abnormal ECG When compared with ECG of 29-JUL-2016 09:54, Premature atrial complexes are no longer Present Confirmed by Ramin Cheney ([id number]) on 11/18/2019 6:00:07 AM Referred By: REFERRED SELF Confirmed By:Ramin Cheney
[2019-11-18 08:04] LABS: Calcium 9.1 mg/dl (8.5-10.1); Creatinine Clr Calc Pharmacy 22.6 ml/min; Est GFR (African American) 37.4; Est GFR (Non-African American) 32.3; Magnesium 2.3 mg/dl (1.8-2.4); Potassium 4.5 mmol/L (3.5-5.1)
[2019-11-18 08:08] LABS: Hematocrit (blood only) 44.7 % (37-47); Hemoglobin 14.3 g/dL (12.0-16.0); Mean Corpuscular Hemoglobin 28.8 pg (25-34); Mean Corpuscular Volume 90.1 fL (80-100); Mean Platelet Volume 14.3 fL (7.4-10.4); Platelet Count 116 K/uL (130-400); Platelet Estimate Decreased (Normal); RDW Coefficient of Variation 14.7 % (11.5-14.5); RDW Standard Deviation 47.6 fL (36.4-46.3); Red Blood Count 4.96 M/uL (4.2-5.4); White Blood Count 9.72 K/uL (4.8-10.8)
[2019-11-18] MEDS ORDERED: Nursing to Pharmacy Communication SCH (08:15)
[2019-11-18] MEDS: ATENOLOL 25 MG TABLET PO SCH (08:29)
[2019-11-18] MEDS: ATORVASTATIN 40 MG TAB PO SCH (08:29)
[2019-11-18] MEDS: methIMAzole 5 MG TABLET PO SCH (08:29)
[2019-11-18] MEDS: SODIUM CHLORIDE 0.45 % 1,000 ML IV SCH (08:59)
[2019-11-18] MEDS: INSULIN ASPART 100 UNITS/ML 3 ML PEN SC SCH ×3 (09:13→17:42)
--- NOTE | 2019-11-18 12:10 | Nephrology Progress Note ---
Date of Service November 18, 2019 Assessment & Plan (1) Hypernatremia: Presenting sodium 162 on 11/15 at 1800, down to 154 this am. Acceptable rate of improvement; but change IVF d/t hyperchloremia, new low bicarb -changed 1/2 NS to D5 with 75 mEq per L of sodium bicarb same rate -low threshold for palliative consult (2) Acute renal failure (ARF): baseline creatinine 0.8; presenting creatinine 2.7 on 11/15; down to 1.5 on 11/17. K was low on admission with hyperchloremia hypernatremia, hyperglycemia. had been getting K in fluids. Prerenal versus ATN in the setting of volume depletion, presumptive uti -daily bmp -cont nephrotoxin avoidance including holding OP lisinopril (3) UTI (urinary tract infection): ua consistent with this; CT suggestive; urine cx pending; with elevated lactate, renal failure, UTI meets sepsis criteria; urine culture with gram- negative bacilli -on cefepime -follow up pending cxs (4) Sepsis: from presumptive UTI though work up pending; see above; lactate now wnl; has had aggressive fluids, on iv abtx Admission and Anticipated Discharge Date Admission Date: November 16, 2019 Subjective No interval clinical events except that palliative consult pending. Review of systems unobtainable due to patient mental status Review of Systems Review of Systems: Unobtainable due to cognitive status and Unobtainable due to reduced consciousness Physical Exam Constitutional: well developed, + cachectic and + frail appearing; no acute distress Obtunded and on room air ENMT: Ears: no external ear abnormality Nose: no external nose abnormality Mouth: + dry oral mucous membranes Neck: no nuchal rigidity Respiratory: normal respiratory effort Auscultation: + diminished lung sounds; no crackles and no wheezes Cardiovascular: RRR, no murmur, no edema Gastrointestinal (Abdomen): Inspection/Auscultation: normal bowel sounds Percussion/Palpation: abdomen soft; abdomen nontender Musculoskeletal: Extremities: + limited ROM of extremities Skin: no rashes, warm and dry Neurologic: + obtunded Genitourinary: Lopez present with ample yellow urine Results & Data ([facility]) Vital Signs (Past 12 Hours) Vital Signs Temp Pulse Pulse Resp BP Pulse Ox 11/18/19 11:07 36.4 C L 85 14 148/79 H 97 11/18/19 07:34 103 H 11/18/19 07:19 36.6 C 99 H 18 156/81 H 97 11/18/19 04:47 102 H 11/18/19 04:00 37.0 C 91 H 18 124/63 99 Laboratory Results 11/18/19 07:15 11/18/19 07:15 (1) UTI (urinary tract infection) Hematuria presence: with hematuria Urinary tract infection type: acute cystitis Qualified Code(s): N30.01 - Acute cystitis with hematuria (2) Acute renal failure (ARF) Acute renal failure type: unspecified Qualified Code(s): N17.9 - Acute kidney failure, unspecified
[2019-11-18] MEDS: SODIUM BICARBONATE 8.4% 75 MEQ in DEXTROSE 5% 1,000 ML IV SCH (13:30)
--- NOTE | 2019-11-18 15:37 | Palliative Care Consultation ---
Date of Consultation November 18, 2019 Assessment & Plan (1) Goals of care, counseling/discussion: This is an 89 year old female who presented to the [facility] on November 15 with poor oral intake for the past 5 days from [facility] where she is a permanent resident. She was diagnosed with urosepsis and is receiving IV abx for treatment. A head CT was obtained and negative. Additional PMH includes: CAD, PVD, LBBB, mild aortic stenosis (TIO 2010) dementia, hyperthyroidism with multifocal goiter, and DM2. Palliative Care was consulted to discuss goals of care. Pt is a DNR/DNI. -I met with patient in room 250. Per the embedded case manager, the patients , Paulo, and the hospitalist were in the room. I must have just missed them together as I went into the room, no family was at the bedside. -The patient was awake, starting ahead, not focusing with her eyes and not able to follow commands. Patient is non-verbal. -FAST all of 6 and all of 7. -THe patient is a resident at [facility] and per case management, she would be welcomed back with Hospice services in place. 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 CAD -I phoned the patients , Paulo and left a voicemail. Pt is a DNR/DNI. -I discussed the above with the hospitalist who was able to talk with the who indicated that he was comfortable continuing current treatment through tomorrow and Thursday and would think about Hospice and comfort measures and have further discussion later this weekend into early next week. -I informed the nursing station to call me if the patients came in on Thursday so we could discuss a time to have a meeting regarding goals of care, along with having the weekend to see how she continues to respond to the antibiotics ordered. -POLST form would be helpful. -PPS: 20% (2) Sepsis: (3) Alzheimer's dementia: (4) Encephalopathy: History of Present Illness Reason for Consultation: Goals of Care Requesting Physician: Dr. Yoo Attending Physician: Josef Yoo MD History of Present Illness This is an 89 year old female who presented to the [facility] on November 15 with poor oral intake for the past 5 days from [facility] where she is a permanent resident. She was diagnosed with urosepsis and is receiving IV abx for treatment. A head CT was obtained and negative. Additional PMH includes: CAD, PVD, LBBB, mild aortic stenosis (TIO 2010) dementia, hyperthyroidism with multifocal goiter, and DM2. Palliative Care was consulted to discuss goals of care. Pt is a DNR/DNI. Please see A/P for further details. Allergies Allergy/AdvReac Type Severity Reaction Status Date / Time No Known Allergies Allergy Unknown Verified 11/16/19 20:36 Home Medications Home Medications Medication Instructions Recorded Confirmed Type acetaminophen [Tylenol] 650 mg PO Q4 PRN 11/16/19 11/16/19 History atorvastatin [Lipitor] 40 mg PO DAILY 11/16/19 11/16/19 History calcium carbonate-vitamin D3 1 tab PO AMHS 11/16/19 11/16/19 History [Oyster Shell Calcium-Vit D3] cholecalciferol (vitamin D3) 1,000 unit PO DAILY 11/16/19 11/16/19 History [Vitamin D3] insulin aspart U-100 [Novolog 6 unit SUBCUT .BID UD 11/16/19 11/16/19 History U-100 Insulin aspart] insulin glargine [Lantus U-100 10 unit SUBCUT HS 11/16/19 11/16/19 History Insulin] lisinopril [Zestril] 20 mg PO DAILY 11/16/19 11/16/19 History miconazole nitrate [Desenex] 1 applic TOPICAL BID 11/16/19 11/16/19 History omega 0-rmw-zjd-fish oil [Fish Oil] 1 cap PO DAILY 11/16/19 11/16/19 History polyethylene glycol 3350 [Miralax] 17 g PO AMHS 11/16/19 11/16/19 History sennosides-docusate sodium 2 tab PO AMHS 11/16/19 11/16/19 History [Senexon-S] Patient History Medical History Alzheimer's dementia Diabetes mellitus, type II Goiter HTN (hypertension) Surgical History Hx of cholecystectomy S/P ALYSSA (total abdominal hysterectomy) Family History Other Stroke Social History Smoking Status: Unknown if ever smoked Preferred Language: Egyptian Communication Ability: Unable Communication Ability Comment: nonverbal Head Of History Required: No Beliefs That Will Affect Care: None marital status: Current Living Situation: Snf Current Living Situation Comment: [facility] Feels Safe at Home: Yes Review of Systems Review of Systems: Unobtainable due to cognitive status Physical Exam Constitutional: + ill appearing, + thin, comfortable and + lethargic Eyes: PERRL, conjunctivae normal, anicteric sclerae ENMT: external ear and nose normal, oropharynx normal Respiratory: + cough and symmetric chest movement Auscultation: + diminished lung sounds Cardiovascular: Rate/Rhythm: regular rate and regular rhythm Heart Sounds: normal S1, normal S2 and + murmur Vessels: normal peripheral pulses Gastrointestinal (Abdomen): normal bowel sounds, soft, nontender, no hepatosplenomegaly Skin: no rashes, warm and dry + pallor Psychiatric: Orientation: alert Insight: + severely impaired insight Judgement: + severely impaired judgement Results & Data ([facility]) Vital Signs (Past 12 Hours) Vital Signs Temp Pulse Pulse Pulse Resp BP Pulse Ox 11/18/19 15:23 36.7 C 92 H 18 168/78 H 98 11/18/19 11:07 36.4 C L 85 14 148/79 H 97 11/18/19 07:34 103 H 11/18/19 07:19 36.6 C 99 H 18 156/81 H 97 11/18/19 04:47 102 H 11/18/19 04:00 37.0 C 91 H 18 124/63 99 PG Care Time/CCT Total # of Minutes Spent Total Time Spent with Patient: Total time spent is greater than 50% in coordination of care (as documented) at patient's floor/unit and/or counseling patient: 70 Coding Level of Care Code 47723 Inpt Consult Level 3 Diagnoses Goals of care, counseling/discussion Z71.89 Sepsis A41.9 Alzheimer's dementia G30.9; F02.80 Encephalopathy G93.40 Time Spent (min) 70 Time Spent Midlevel Total time spent 70 minutes with > 50% of that time spent assessing the patient, discussing goals of care with family and IDT
--- NOTE | 2019-11-18 18:24 | Hospitalist Progress Note ---
Date of Service November 18, 2019 Assessment & Plan (1) Encephalopathy: Acute metabolic encephalopathy Mostly Non verbal at baseline Sepsis, Hypernatremia, Dementia could be contributing CT head:No acute intracranial abnormality. Monitor No aggressive measures as per family Palliative care consulted to address goals of care Sepsis Lactic acidosis UTI Lactate levels normalized with IV fluids Blood Cx: No growth to date Urine Cx:Gram Negative Bacilli Continue IV fluids Continue Cefepime Acute Kidney Injury Metabolic Acidosis Likely due to poor oral intake Prerenal Vs ATN in setting of sepsis Avoid nephrotoxic agents as able Continue IV fluids with Bicarbonate Monitor renal function Bladder scan as needed Hold Lisinopril Appreciate Nephrology Input Elevated Troponin Likely Type II NV in setting of sepsis/BINU/Tachycardia EKG: Chronic LBBB Hypernatremia Continue IV fluids Monitor sodium levels Appreciate neurology input Sodium: 154 today H/O CAD/PVD Chronic LBBB Mild aortic stenosis Continue home medications as able Hyperthyroidism H/O Multinodular goiter Refused outpatient Endocrinology referral in the past Continue Methimazole as able DM II Last HbA1c:7.4 Continue Insulin therapy Monitor BGs DVT Px: Heparin SQ Code Status DNI/DNR Disposition To be determined Admission and Anticipated Discharge Date Admission Date: November 16, 2019 Subjective Patient is seen and examined at bedside Unable to obtain any history Patient alert, awake but nonverbal and does not follow commands Discussed with patient's in detail at bedside No aggressive measures as per family, okay to continue current management Metabolic acidosis noted on labs, added bicarbonate to IV fluids as per nephrol [place] Urine culture growing gram-negative bacilli Discussed with palliative care today Review of Systems Review of Systems: Could not be reliably obtained Physical Exam Physical Exam: Physical Exam: Vitals signs as noted above General Appearance:Thin, Chronic ill appearing, Non verbal Head: normocephalic, Atraumatic Eyes: normal inspection Neck: supple, Trachea midline Respiratory/Chest: Decreased breath sounds, CTA, No accessory muscle use Cardiovascular: S1, S2, + murmur Abdomen/GI:Soft, Non tender, Bowel sounds present Extremities/Musculoskelatal:normal inspection, no edema Neurologic/Psych:Non verbal, Unable to perform complete neuro exam, Doesn't follow commands Skin: normal color, warm Results & Data Results & Data ([facility]) Vital Signs (Past 12 Hours) Vital Signs Temp Pulse Pulse Pulse Resp BP Pulse Ox 11/18/19 16:00 92 H 11/18/19 15:23 36.7 C 92 H 18 168/78 H 98 11/18/19 11:07 36.4 C L 85 14 148/79 H 97 11/18/19 07:34 103 H 11/18/19 07:19 36.6 C 99 H 18 156/81 H 97
[2019-11-18] MEDS: INSULIN GLARGINE SOLOSTAR 100 UNITS/ML 3 ML PEN SC SCH (21:07)
[2019-11-19] MEDS: INSULIN ASPART 100 UNITS/ML 3 ML PEN SC SCH ×5 (00:33→23:59)
[2019-11-19] MEDS: SODIUM BICARBONATE 8.4% 75 MEQ in DEXTROSE 5% 1,000 ML IV SCH ×2 (02:48→16:33)
[2019-11-19] MEDS: CEFEPIME 1,000 MG in SYRINGE 0 ML IV SCH (02:50)
[2019-11-19] MEDS: HEPARIN SOD 5,000 UNIT/0.5 ML VIAL SQ SCH (06:19)
[2019-11-19 08:28] LABS: Hematocrit (blood only) 40.3 % (37-47); Hemoglobin 13.1 g/dL (12.0-16.0); Mean Corpuscular Hgb Conc 32.5 g/dL (32-36); Mean Corpuscular Volume 89.4 fL (80-100); Platelet Count 96 K/uL (130-400); RDW Coefficient of Variation 14.2 % (11.5-14.5); RDW Standard Deviation 46.3 fL (36.4-46.3); Red Blood Count 4.51 M/uL (4.2-5.4); White Blood Count 6.61 K/uL (4.8-10.8)
[2019-11-19 08:29] LABS: Platelet Estimate Decreased (Normal)
[2019-11-19 08:33] LABS: Calcium 9.2 mg/dl (8.5-10.1); Est GFR (African American) 50.6; Est GFR (Non-African American) 43.7
[2019-11-19] MEDS: ATENOLOL 25 MG TABLET PO SCH (08:48)
[2019-11-19] MEDS: methIMAzole 5 MG TABLET PO SCH (08:49)
[2019-11-19] MEDS: ATORVASTATIN 40 MG TAB PO SCH (08:49)
--- NOTE | 2019-11-19 13:33 | Nephrology Progress Note ---
Date of Service November 19, 2019 Assessment & Plan (1) Hypernatremia: Presenting sodium 162 on 11/15 at 1800, down to 153 this am. Acceptable rate of improvement; but ongoing hyperchloremia; low bicarb now resolved -changed D5 with 75 mEq per L of sodium bicarb to D5W -palliative following; hospice under consideration but not currently in place (2) Acute renal failure (ARF): baseline creatinine 0.8; presenting creatinine 2.7 on 11/15; down to 1.1 on 11/18. K was low on admission with hyperchloremia hypernatremia, hyperglycemia. had been getting K in fluids. Prerenal versus ATN in the setting of volume depletion, presumptive uti -daily bmp -cont nephrotoxin avoidance including holding OP lisinopril (3) UTI (urinary tract infection): ua consistent with this; CT suggestive; urine cx w/ K pniae; with elevated lactate, renal failure, UTI meets sepsis criteria -on ceftriaxone now, clinically improving (4) Sepsis: from klebsiella UTI; see above; lactate now wnl; has had aggressive fluids, on iv abtx Admission and Anticipated Discharge Date Admission Date: November 16, 2019 Subjective palliative following; slight improvemnt in MS Review of Systems Review of Systems: Unobtainable due to cognitive status Physical Exam Constitutional: well developed, + cachectic and + frail appearing; no acute distress ENMT: Ears: no external ear abnormality Nose: no external nose abnormality Mouth: + dry oral mucous membranes Neck: no nuchal rigidity Respiratory: normal respiratory effort Auscultation: + diminished lung sounds; no crackles and no wheezes Cardiovascular: RRR, no murmur, no edema Gastrointestinal (Abdomen): Inspection/Auscultation: normal bowel sounds Percussion/Palpation: abdomen soft; abdomen nontender Musculoskeletal: Extremities: + limited ROM of extremities Skin: no rashes, warm and dry Neurologic: awake grimaces, tracks briefly Results & Data ([facility]) Vital Signs (Past 12 Hours) Vital Signs Temp Pulse Pulse Resp BP BP Pulse Ox 11/19/19 11:33 36.4 C L 59 L 18 144/51 H 99 11/19/19 07:42 36.4 C L 72 18 173/67 H 97 11/19/19 07:15 71 11/19/19 02:50 36.4 C L 76 16 171/80 H 96 11/19/19 01:52 73 Laboratory Results 11/19/19 07:31 11/19/19 09:18 (1) UTI (urinary tract infection) Hematuria presence: with hematuria Urinary tract infection type: acute cystitis Qualified Code(s): N30.01 - Acute cystitis with hematuria (2) Acute renal failure (ARF) Acute renal failure type: unspecified Qualified Code(s): N17.9 - Acute kidney failure, unspecified
[2019-11-19] MEDS: DEXTROSE 5% 1,000 ML IV SCH (16:36)
--- NOTE | 2019-11-19 18:00 | Hospitalist Progress Note ---
Date of Service November 19, 2019 Assessment & Plan (1) Encephalopathy: Acute metabolic encephalopathy Mostly Non verbal at baseline Sepsis, Hypernatremia, Dementia could be contributing CT head:No acute intracranial abnormality. Monitor No aggressive measures as per family Palliative care consulted to address goals of care Sepsis Lactic acidosis UTI Lactate levels normalized with IV fluids Blood Cx: No growth to date Urine Cx:Klebsiellai Continue IV fluids as per Nephrology Continue Cefepime>>Transitioned to Rocephin Acute Kidney Injury--Resolved Metabolic Acidosis--Resolved Likely due to poor oral intake Prerenal Vs ATN in setting of sepsis Avoid nephrotoxic agents as able Continue IV fluids as per Nephrology Monitor renal function Bladder scan as needed Hold Lisinopril for now Appreciate Nephrology Input Dysphagia Speech Eval Aspiration precautions NPO for now Thrombocytopenia No bleeding issues Monitor Elevated Troponin Likely Type II PA in setting of sepsis/BINU/Tachycardia EKG: Chronic LBBB Hypernatremia Continue D5W Monitor sodium levels Appreciate neurology input Sodium: 153 today H/O CAD/PVD Chronic LBBB Mild aortic stenosis Continue home medications as able Hyperthyroidism H/O Multinodular goiter Refused outpatient Endocrinology referral in the past Continue Methimazole as able DM II Last HbA1c:7.4 Continue Insulin therapy Monitor BGs DVT Px: SCDs Re: Thrombocytopenia Code Status DNI/DNR Disposition To be determined Palliative care consulted to address goals of care Admission and Anticipated Discharge Date Admission Date: November 16, 2019 Subjective Patient is seen and examined at bedside Unable to obtain any history Patient Nonverbal at baseline Urine culture growing Klebsiella Sodium levels 153 Metabolic acidosis resolved No distress on exam Review of Systems Review of Systems: Other Non Verbal Physical Exam Physical Exam: Physical Exam: Vitals signs as noted above General Appearance:Thin, Chronic ill appearing, Non verbal Head: normocephalic, Atraumatic Eyes: normal inspection Neck: supple, Trachea midline Respiratory/Chest: Decreased breath sounds, CTA, No accessory muscle use Cardiovascular: S1, S2, + murmur Abdomen/GI:Soft, Non tender, Bowel sounds present Extremities/Musculoskelatal:normal inspection, no edema Neurologic/Psych:Non verbal, Unable to perform complete neuro exam, Doesn't follow commands Skin: normal color, warm Results & Data Results & Data ([facility]) Vital Signs (Past 12 Hours) Vital Signs Temp Pulse Pulse Resp BP Pulse Ox 11/19/19 15:22 36.6 C 57 L 20 132/68 97 08/15/20 14:20 52 L 11/19/19 11:33 36.4 C L 59 L 18 144/51 H 99 11/19/19 07:42 36.4 C L 72 18 173/67 H 97 11/19/19 07:15 71
[2019-11-19] MEDS: INSULIN GLARGINE SOLOSTAR 100 UNITS/ML 3 ML PEN SC SCH (21:11)
[2019-11-20] MEDS: DEXTROSE 5% 1,000 ML IV SCH (04:38)
[2019-11-20] MEDS: INSULIN ASPART 100 UNITS/ML 3 ML PEN SC SCH ×3 (06:35→18:08)
[2019-11-20] MEDS: ATENOLOL 25 MG TABLET PO SCH (07:02)
[2019-11-20 07:58] LABS: BUN Creatinine Ratio 36.5 (10-20); Calcium 8.1 mg/dl (8.5-10.1); Est GFR (African American) 72.4; Est GFR (Non-African American) 62.5; Potassium 3.1 mmol/L (3.5-5.1)
[2019-11-20 08:07] LABS: Hematocrit (blood only) 41.5 % (37-47); Hemoglobin 13.9 g/dL (12.0-16.0); Mean Corpuscular Hemoglobin 29.1 pg (25-34); Mean Corpuscular Hgb Conc 33.5 g/dL (32-36); Mean Corpuscular Volume 86.8 fL (80-100); Platelet Count 85 K/uL (130-400); Platelet Estimate Decreased (Normal); RDW Coefficient of Variation 13.7 % (11.5-14.5); RDW Standard Deviation 43.4 fL (36.4-46.3); Red Blood Count 4.78 M/uL (4.2-5.4)
[2019-11-20] MEDS ORDERED: POTASSIUM CHLORIDE 20 MEQ/15 ML UDC PO ONE (08:32)
[2019-11-20] MEDS: methIMAzole 5 MG TABLET PO SCH (08:38)
[2019-11-20] MEDS: ATORVASTATIN 40 MG TAB PO SCH (08:38)
[2019-11-20] MEDS: cefTRIAXone SODIUM 1,000 MG in DEXTROSE 5% 50 ML IV SCH (08:38)
[2019-11-20] MEDS ORDERED: INSULIN GLARGINE SOLOSTAR 100 UNITS/ML 3 ML PEN SC SCH ×2 (09:00→21:45)
[2019-11-20] MEDS: lisinopriL 20 MG TAB PO SCH (09:00)
[2019-11-20] MEDS: POTASSIUM CHLORIDE 40 MEQ in DEXTROSE 5% 1,000 ML IV SCH ×2 (09:36→19:50)
--- NOTE | 2019-11-20 13:53 | Nephrology Progress Note ---
Date of Service November 20, 2019 Assessment & Plan (1) Hypernatremia: Presenting sodium 162 on 11/15 at 1800, down to 153 this am. Acceptable rate of improvement; but ongoing hyperchloremia; low bicarb now resolved -changed D5W at 50 to D5W with 40 mEq / L K at 125 mL hourly -will give one L of k rich IVF then lower rate > order in -palliative following; hospice under consideration but not currently in place (2) Acute renal failure (ARF): baseline creatinine 0.8; presenting creatinine 2.7 on 11/15; down to 1.1 on 11/18. K was low on admission with hyperchloremia hypernatremia, hyperglycemia. had been getting K in fluids. Prerenal versus ATN in the setting of volume depletion, presumptive uti >> Stage 3 BINU -daily bmp -cont nephrotoxin avoidance including holding OP lisinopril (3) UTI (urinary tract infection): ua consistent with this; CT suggestive; urine cx w/ K pniae; with elevated lactate, renal failure, UTI meets sepsis criteria -on ceftriaxone now, clinically improving (4) Hypokalemia: >IVF K rich as above; she also took po elixir 40 mEq thsi am K >>>>>recommend recheck bmp 2100 and give more K elixir or continue 125 mL hourly IVF rate if K still low Present on Admission?: Yes Admission and Anticipated Discharge Date Admission Date: November 16, 2019 Subjective K low this am and working to replete; cannot give ROS Review of Systems Review of Systems: Unobtainable due to cognitive status Physical Exam Constitutional: well developed, + cachectic and + frail appearing; no acute distress on RA, non interactive ENMT: Ears: no external ear abnormality Nose: no external nose abnormality Mouth: + dry oral mucous membranes Neck: no nuchal rigidity Respiratory: normal respiratory effort Auscultation: + diminished lung sounds; no crackles and no wheezes Cardiovascular: Rate/Rhythm: regular rate and regular rhythm Heart Sounds: + murmur Extremities: + edema Gastrointestinal (Abdomen): Inspection/Auscultation: normal bowel sounds Percussion/Palpation: abdomen soft; abdomen nontender Musculoskeletal: Extremities: + limited ROM of extremities Skin: no rashes, warm and dry Neurologic: awake tracks minimally; today no grimacing, sounds and less tracking Genitourinary: [place] with ample yellow urine Results & Data ([facility]) Vital Signs (Past 12 Hours) Vital Signs Temp Pulse Pulse Resp BP Pulse Ox 11/20/19 11:14 36.3 C L 60 20 139/70 98 11/20/19 07:06 36.4 C L 60 20 186/67 H 99 11/20/19 07:00 60 11/20/19 04:52 36.8 C 63 18 176/67 H 98 Laboratory Results 11/20/19 07:19 11/20/19 07:19 (1) Acute renal failure (ARF) Acute renal failure type: unspecified Qualified Code(s): N17.9 - Acute kidney failure, unspecified (2) UTI (urinary tract infection) Urinary tract infection type: acute cystitis Hematuria presence: with hematuria Qualified Code(s): N30.01 - Acute cystitis with hematuria
--- NOTE | 2019-11-20 17:01 | Palliative Care Progress Note ---
Date of Service November 20, 2019 Assessment & Plan (1) Goals of care, counseling/discussion: This is an 89 year old female who presented to the [facility] on November 15 with poor oral intake for the past 5 days from [facility] where she is a permanent resident. She was diagnosed with urosepsis and is receiving IV abx for treatment. A head CT was obtained and negative. Additional PMH includes: CAD, PVD, LBBB, mild aortic stenosis (TIO 2010) dementia, hyperthyroidism with multifocal goiter, and DM2. Palliative Care was consulted to discuss goals of care. Pt is a DNR/DNI. -I met with patient in room 250. No family was at the bedside. -The patient was awake, starting ahead, not focusing with her eyes and not able to follow commands. Patient is non-verbal at baseline. -FAST all of 6 and all of 7. -The patient is a resident at [facility] and per case management, she would be welcomed back with Hospice services in place. 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 CAD -I phoned the patients , Paulo and left a voicemail. Pt is a DNR/DNI. -I discussed the above with the hospitalist who was able to talk with the who indicated that he was comfortable continuing current treatment through today and would think about Hospice and comfort measures and have further discussion later this weekend into early next week. Please feel free to contact Palliative Care if comes in. -POLST form would be helpful prior to discharge. -PPS: 20% (2) Sepsis: (3) Alzheimer's dementia: (4) Encephalopathy: Admission and Anticipated Discharge Date Admission Date: November 16, 2019 Subjective Patient has been seen and is lying in her hospital bed. Appears comfortable Unable to obtain any history Patient Nonverbal (Baseline) No family at bedside Review of Systems Review of Systems: Unobtainable due to cognitive status Physical Exam Constitutional: + ill appearing, + thin, comfortable and + lethargic Eyes: PERRL, conjunctivae normal, anicteric sclerae ENMT: external ear and nose normal, oropharynx normal Respiratory: + cough and symmetric chest movement Auscultation: + diminished lung sounds Cardiovascular: Rate/Rhythm: regular rate and regular rhythm Heart Sounds: normal S1, normal S2 and + murmur Vessels: normal peripheral pulses Gastrointestinal (Abdomen): normal bowel sounds, soft, nontender, no hepatosplenomegaly Skin: no rashes, warm and dry + pallor Psychiatric: Orientation: alert Insight: + severely impaired insight Judgement: + severely impaired judgement Results & Data ([facility]) Vital Signs (Past 12 Hours) Vital Signs Temp Pulse Pulse Resp BP Pulse Ox 11/20/19 15:47 36.3 C L 78 18 109/62 96 11/20/19 14:20 60 11/20/19 11:14 36.3 C L 60 20 139/70 98 11/20/19 07:06 36.4 C L 60 20 186/67 H 99 11/20/19 07:00 60 PG Care Time/CCT Total # of Minutes Spent Total Time Spent with Patient: Total time spent is greater than 50% in coordination of care (as documented) at patient's floor/unit and/or counseling patient: 35 Coding Level of Care Code 47451 Subseq Hosp Care Lvl 3 Diagnoses Goals of care, counseling/discussion Z71.89 Sepsis A41.9 Alzheimer's dementia G30.9; F02.80 Encephalopathy G93.40 Time Spent (min) 35 Time Spent Midlevel Total time spent 35 minutes with > 50% of that time spent assessing the patient, discussing goals of care with IDT.
[2019-11-20] MEDS ORDERED: PHARMACY GLYCEMIC MGMT CONSULT PRN (17:42)
[2019-11-20] MEDS ORDERED: INSULIN HUMAN REGULAR PER UNIT 3 UNITS in SYRINGE 2.97 ML IV ONE (18:15)
[2019-11-20] MEDS ORDERED: Nursing to Pharmacy Communication SCH (18:30)
--- NOTE | 2019-11-20 20:00 | Hospitalist Progress Note ---
Date of Service November 20, 2019 Assessment & Plan (1) Encephalopathy: Acute metabolic encephalopathy Mostly Non verbal at baseline Sepsis, Hypernatremia, Dementia could be contributing CT head:No acute intracranial abnormality. Monitor No aggressive measures as per family Palliative care consulted to address goals of care Mental status seems to be slowly improving Sepsis Lactic acidosis UTI Lactate levels normalized with IV fluids Blood Cx: No growth to date Urine Cx:Klebsiellai Continue IV fluids as per Nephrology Continue Cefepime>>Transitioned to Rocephin Continue Rocephin Day #3 Acute Kidney Injury--Resolved Metabolic Acidosis--Resolved Hypokalemia Likely due to poor oral intake Prerenal Vs ATN in setting of sepsis Avoid nephrotoxic agents as able Continue IV fluids as per Nephrology Monitor renal function Bladder scan as needed Appreciate Nephrology Input Dysphagia Speech Eval done Aspiration precautions Speech therapy recommends to keep patient n.p.o. given very high risk for aspiration Thrombocytopenia No bleeding issues Monitor Elevated Troponin Likely Type II PA in setting of sepsis/BINU/Tachycardia EKG: Chronic LBBB Hypernatremia Continue IV fluids as per nephrology Monitor sodium levels Appreciate neurology input Sodium: 148 today H/O CAD/PVD Chronic LBBB Mild aortic stenosis Continue home medications as able Hyperthyroidism H/O Multinodular goiter Refused outpatient Endocrinology referral in the past Continue Methimazole as able DM II Last HbA1c:7.4 Continue Insulin therapy Monitor BGs Glycemic pharmacy consulted DVT Px: SCDs Re: Thrombocytopenia Code Status DNI/DNR Disposition To be determined Palliative care consulted to address goals of care Admission and Anticipated Discharge Date Admission Date: November 16, 2019 Subjective Patient is seen and examined at bedside More alert, awake today Nonverbal at baseline Discussed with nephrology today Also discussed with patient's family in detail about patient's condition Family plans to discuss with palliative care, to address goals of care Speech recommends to keep the patient n.p.o. given very high risk for aspiration Review of Systems Review of Systems: All systems reviewed & are unremarkable except as noted in HPI & below Physical Exam Physical Exam: Physical Exam: Vitals signs as noted above General Appearance:Thin, Chronic ill appearing, Non verbal Head: normocephalic, Atraumatic Eyes: normal inspection Neck: supple, Trachea midline Respiratory/Chest: Decreased breath sounds, CTA, No accessory muscle use Cardiovascular: S1, S2, + murmur Abdomen/GI:Soft, Non tender, Bowel sounds present Extremities/Musculoskelatal:normal inspection, no edema Neurologic/Psych:Non verbal, Unable to perform complete neuro exam, Doesn't follow commands Skin: normal color, warm Results & Data Results & Data ([facility]) Vital Signs (Past 12 Hours) Vital Signs Temp Pulse Pulse Resp BP Pulse Ox 11/20/19 19:38 36.6 C 60 18 126/54 L 97 11/20/19 15:47 36.3 C L 78 18 109/62 96 11/20/19 14:20 60 11/20/19 11:14 36.3 C L 60 20 139/70 98 Laboratory Results Short CBC 11/20/19 Range/Units 07:19 WBC 6.50 (4.8-10.8) K/uL Hgb 13.9 (12.0-16.0) g/dL Hct 41.5 (37-47) % Plt Count 85 L (130-400) K/uL BMP 11/20/19 07:19 Sodium 148 H Potassium 3.1 L Chloride 115 H Carbon Dioxide 24 BUN 31 H Creatinine 0.84 Glucose 258 H Calcium 8.1 L
[2019-11-21] MEDS: INSULIN ASPART 100 UNITS/ML 3 ML PEN SC SCH ×5 (00:58→23:55)
[2019-11-21] MEDS ORDERED: INSULIN ASPART 100 UNITS/ML 3 ML PEN SC SCH (03:00)
[2019-11-21] MEDS: ATENOLOL 25 MG TABLET PO SCH (08:09)
[2019-11-21] MEDS: methIMAzole 5 MG TABLET PO SCH (08:09)
[2019-11-21] MEDS: lisinopriL 20 MG TAB PO SCH (08:09)
[2019-11-21] MEDS: ATORVASTATIN 40 MG TAB PO SCH (08:09)
[2019-11-21 08:11] LABS: Mean Corpuscular Hgb Conc 32.9 g/dL (32-36)
[2019-11-21 08:19] LABS: Hematocrit (blood only) 42.2 % (37-47); Hemoglobin 13.9 g/dL (12.0-16.0); Mean Corpuscular Hemoglobin 28.3 pg (25-34); Mean Corpuscular Volume 85.8 fL (80-100); RDW Standard Deviation 43.3 fL (36.4-46.3); Red Blood Count 4.92 M/uL (4.2-5.4); White Blood Count 8.32 K/uL (4.8-10.8)
[2019-11-21] MEDS: POTASSIUM CHLORIDE 40 MEQ in DEXTROSE 5% 1,000 ML IV SCH (08:36)
[2019-11-21 08:51] LABS: Platelet Count 94 K/uL (130-400); Platelet Estimate Decreased (Normal)
[2019-11-21 08:53] LABS: BUN Creatinine Ratio 28.8 (10-20); Est GFR (African American) 72.4; Est GFR (Non-African American) 62.5; Magnesium 1.8 mg/dl (1.8-2.4); Potassium 4.3 mmol/L (3.5-5.1)
[2019-11-21] MEDS ORDERED: INSULIN GLARGINE SOLOSTAR 100 UNITS/ML 3 ML PEN SC SCH ×2 (09:00→21:00)
[2019-11-21] MEDS: cefTRIAXone SODIUM 1,000 MG in DEXTROSE 5% 50 ML IV SCH (10:05)
--- NOTE | 2019-11-21 10:57 | Nephrology Progress Note ---
Date of Service November 21, 2019 Assessment & Plan (1) Hypernatremia: Presenting sodium 162 on 11/15 at 1800, down to 142 this am. -We will reduce the rate of D5 with potassium chloride to 50 mL/h. -palliative following; hospice under consideration but not currently in place (2) Acute renal failure (ARF): baseline creatinine 0.8; presenting creatinine 2.7 on 11/15; down to 1.1 on 11/18 and back to baseline today at 0.8. Prerenal versus ATN in the setting of volume depletion, presumptive uti >> Stage 3 BINU -daily bmp -cont nephrotoxin avoidance including holding OP lisinopril (3) UTI (urinary tract infection): ua consistent with this; CT suggestive; urine cx w/ K pniae; with elevated lactate, renal failure, UTI meets sepsis criteria -on ceftriaxone now, clinically improving (4) Hypokalemia: >IVF K rich as above; K of 4.3 today. Admission and Anticipated Discharge Date Admission Date: November 16, 2019 Subjective Patient unable to give history. She is getting D5 water with potassium chloride. Sodium is better at 142 today. History obtained by speaking with the nurse Review of Systems Review of Systems: Unobtainable due to cognitive status Physical Exam Physical Exam: General exam: Appears comfortable, no acute distress HEENT: Pupils are equal and reactive to light Neck: No JVD, neck is supple trachea is midline Respiratory system: Clear breath sounds bilaterally. Gastrointestinal: Abdomen is soft, non distended, non tender, bowel sounds are present CVS: Regular rate and rhythm. No murmurs, rubs or gallops Musculoskeletal: No joint or muscle tenderness Extremities: Non tender, no edema, peripheral pulses are present Neuro: Unable to give history or respond to questions but awake Skin: No rashes Results & Data ([facility]) Vital Signs (Past 12 Hours) Vital Signs Temp Pulse Pulse Resp BP Pulse Ox 11/21/19 08:23 36.8 C 66 17 104/64 100 11/21/19 07:00 64 11/21/19 04:40 36.6 C 68 18 154/71 H 94 11/20/19 23:00 35.9 C L 60 18 138/72 99 Laboratory Results 11/21/19 07:32 11/21/19 07:32 WBC 8.32 RBC 4.92 MCV 85.8 MCH 28.3 MCHC 32.9 RDW Std Deviation 43.3 RDW Coeff of Salvatore 14.0 Plt Count 94 L (1) Acute renal failure (ARF) Acute renal failure type: unspecified Qualified Code(s): N17.9 - Acute kidney failure, unspecified (2) UTI (urinary tract infection) Urinary tract infection type: acute cystitis Hematuria presence: with hematuria Qualified Code(s): N30.01 - Acute cystitis with hematuria
[2019-11-21] MEDS ORDERED: Nursing to Pharmacy Communication SCH ×2 (12:45→21:30)
--- NOTE | 2019-11-21 12:46 | Pharmacy Report ---
Glycemic Control Consultation - Date of Service November 21, 2019 - Scope Scope: Glycemic Pharmacist consulted for glycemic control and to write orders per [facility] inpatient glycemic control protocol. - Objective Weight: 55.2 kg [place] BSG (last 24hrs): 11/20/19 11/20/19 11/20/19 17:25 17:26 20:36 Glucose POC Glucose 300 H 342 H* 251 H 11/21/19 11/21/19 11/21/19 00:24 04:19 06:13 Glucose POC Glucose 233 H 185 H 169 H 11/21/19 07:32 Glucose 165 H POC Glucose Laboratory Data (last 24hrs): 11/21/19 07:32 Potassium 4.3 D Carbon Dioxide 25 Anion Gap 2.0 L Creatinine 0.84 Est Cr Clr Drug Dosing 39.0 HbA1c: Hemoglobin A1c 7.6 % (4.5-5.6) H 11/16/19 18:08 - Recent Pertinent Medications Outpatient Anti-diabetic Regimen: * Lantus 10 units HS, Novolog 6 units with breakfast/lunch * A1c = 7.6 % 11/16/19 Risk Factors for Insulin Resistance: * IVF: w/ dextrose * Diet: npo - Assessment & Plan Assessment & Plan: ASSESSMENT: * 89 year old female admitted with encephalopathy/UTI. Pharmacy consulted for glycemic management. BINU on admission, now improved. Patient continues NPO given very high risk for aspiration. * Patient with hypernatremia, managing on dextrose infusion. Rate of infusion decreasing more today to 50 ml/hr. BSGs continuing to improve * Fasting BSG this AM 169 mg/dL - continue with Lantus 15 units this AM, then will provide reduced scale for basal this HS as BSGs much improved and rate of dextrose infusion decreased PLAN FOR INPATIENT GLYCEMIC CONTROL: * Basal insulin * Lantus 15 this AM * Lantus 0-5 units HS based upon BSG * Bolus insulin * NovoLog per scale ACHS or Q6hrs while NPO * Goal Range: Low 110 mg/dL - High 160 mg/dL * Correction Factor: 20 mg/dL/unit * Nutritional / Prandial insulin per carb ratio of 1 unit per 15 grams CHO consumed * Please note that the plan above was derived based on current level of insulin resistance and hospital stress. These recommendations are appropriate for inpatient admission only. Plan of care upon discharge will need to be reassessed to avoid potential outpatient hypo/hyperglycemia. Thank you.
--- NOTE | 2019-11-21 16:49 | Hospitalist Progress Note ---
Date of Service November 21, 2019 Assessment & Plan (1) Encephalopathy: Acute metabolic encephalopathy Mostly Non verbal at baseline Sepsis, Hypernatremia, Dementia could be contributing CT head:No acute intracranial abnormality. Monitor No aggressive measures as per family Palliative care consulted to address goals of care Prognosis poor Lethargic this morning Sepsis Lactic acidosis UTI Lactate levels normalized with IV fluids Blood Cx: No growth to date Urine Cx:Klebsiella Continue IV fluids as per Nephrology Continue Cefepime>>Transitioned to Rocephin Continue Rocephin Day #4 Acute Kidney Injury--Resolved Metabolic Acidosis--Resolved Hypokalemia--Resolved Likely due to poor oral intake Prerenal Vs ATN in setting of sepsis Avoid nephrotoxic agents as able Monitor renal function Bladder scan as needed Appreciate Nephrology Input IV fluids decreased to 50 ml/hr Dysphagia Speech Eval done Aspiration precautions Speech therapy recommends to keep patient n.p.o. given very high risk for aspiration Thrombocytopenia No bleeding issues Monitor Platelet count slowly improving Elevated Troponin Likely Type II ID in setting of sepsis/BINU/Tachycardia EKG: Chronic LBBB Hypernatremia--Resolved Continue IV fluids as per nephrology Monitor sodium levels Appreciate neurology input Sodium: 142 today H/O CAD/PVD Chronic LBBB Mild aortic stenosis Continue home medications as able Hyperthyroidism H/O Multinodular goiter Refused outpatient Endocrinology referral in the past Continue Methimazole as able DM II Last HbA1c:7.4 Continue Insulin therapy Monitor BGs Glycemic pharmacy consulted DVT Px: SCDs Re: Thrombocytopenia Code Status DNI/DNR Disposition To be determined Palliative care consulted to address goals of care Admission and Anticipated Discharge Date Admission Date: November 16, 2019 Subjective Patient is seen and examined at bedside Nonverbal this morning Lethargic again this morning Sodium 142 today IV fluids decreased by Nephrology Discussed with Palliative Care today Remains NPO due to high risk for apsiration Review of Systems Review of Systems: Unobtainable due to mental health condition Physical Exam Physical Exam: Physical Exam: Vitals signs as noted above General Appearance:Thin, Chronic ill appearing, Non verbal Head: normocephalic, Atraumatic Eyes: normal inspection Neck: supple, Trachea midline Respiratory/Chest: Decreased breath sounds, CTA, No accessory muscle use Cardiovascular: S1, S2, + murmur Abdomen/GI:Soft, Non tender, Bowel sounds present Extremities/Musculoskelatal:normal inspection, no edema Neurologic/Psych:Non verbal, Unable to perform complete neuro exam, Doesn't follow commands Skin: normal color, warm Results & Data Results & Data ([facility]) Vital Signs (Past 12 Hours) Vital Signs Temp Pulse Pulse Resp BP BP Pulse Ox 11/21/19 15:21 36.4 C L 66 18 108/58 L 97 11/21/19 14:20 64 11/21/19 11:02 36.3 C L 68 17 98/61 L 99 11/21/19 08:23 36.8 C 66 17 104/64 100 11/21/19 07:00 64 Laboratory Results Short CBC 11/21/19 Range/Units 07:32 WBC 8.32 (4.8-10.8) K/uL Hgb 13.9 (12.0-16.0) g/dL Hct 42.2 (37-47) % Plt Count 94 L (130-400) K/uL BMP 11/21/19 07:32 Sodium 142 Potassium 4.3 D Chloride 115 H Carbon Dioxide 25 BUN 24 H Creatinine 0.84 Glucose 165 H Calcium 8.0 L
--- NOTE | 2019-11-21 17:01 | Palliative Care Progress Note ---
Date of Service November 21, 2019 Assessment & Plan (1) Goals of care, counseling/discussion: This is an 89 year old female who presented to the [facility] on November 15 with poor oral intake for the past 5 days from [facility] where she is a permanent resident. She was diagnosed with urosepsis and is receiving IV abx for treatment. A head CT was obtained and negative. Additional PMH includes: CAD, PVD, LBBB, mild aortic stenosis (TIO 2010) dementia, hyperthyroidism with multifocal goiter, and DM2. Palliative Care was consulted to discuss goals of care. Pt is a DNR/DNI. -I met with patient in room 250. No family was at the bedside. -The patient was awake, starting ahead, not focusing with her eyes and not able to follow commands. Patient is non-verbal at baseline. She did try to look over at me. Her right arm is cool to touch, no signs of mottling on her knees or feet. She is pallor. -FAST all of 6 and all of 7. -The patient is a resident at [facility] and per case management, she would be welcomed back with Hospice services in place. 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 CAD -I phoned the patients , Paulo and was able to talk to him. He did visit the patient yesterday. -He said she seems about the same, but knows she can't stay here. He did say that he likes being able to visit her, where at [facility] he can not. -I discussed the above with the hospitalist who was able to talk with the who indicated that he was comfortable continuing current treatment through today and would think about Hospice and comfort measures and have further discussion later this weekend into early next week. Please feel free to contact Palliative Care if comes in. 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 -We did discuss end of life and decreased appetite and comfort feeds. He was worried about her not eating, provided reassurance with comfort feeds at end of life. -Unless condition changes, would suggest she is stable for discharge tomorrow and return to [facility] with Hospice set up. Patient did not know any [facility] hospice agency, behavioral health case manager to discuss further. -PPS: 20% (2) Sepsis: (3) Alzheimer's dementia: (4) Encephalopathy: Admission and Anticipated Discharge Date Admission Date: November 16, 2019 Subjective Patient is awake, non verbal, appears in no apparent distress Please see A/P for further details. Physical Exam Constitutional: + ill appearing, + thin, comfortable and + lethargic Eyes: PERRL, conjunctivae normal, anicteric sclerae ENMT: external ear and nose normal, oropharynx normal Respiratory: + cough and symmetric chest movement Auscultation: + diminished lung sounds Cardiovascular: Rate/Rhythm: regular rate and regular rhythm Heart Sounds: normal S1, normal S2 and + murmur Vessels: normal peripheral pulses Gastrointestinal (Abdomen): normal bowel sounds, soft, nontender, no hepatosplenomegaly Skin: no rashes, warm and dry + pallor Psychiatric: Orientation: alert Insight: + severely impaired insight Judgement: + severely impaired judgement Results & Data ([facility]) Vital Signs (Past 12 Hours) Vital Signs Temp Pulse Pulse Resp BP BP Pulse Ox 11/21/19 15:21 36.4 C L 66 18 108/58 L 97 11/21/19 14:20 64 11/21/19 11:02 36.3 C L 68 17 98/61 L 99 11/21/19 08:23 36.8 C 66 17 104/64 100 11/21/19 07:00 64 PG Care Time/CCT Total # of Minutes Spent Total Time Spent with Patient: Total time spent is greater than 50% in coordination of care (as documented) at patient's floor/unit and/or counseling patient: 35 Coding Level of Care Code 88135 Subseq Hosp Care Lvl 3 Diagnoses Goals of care, counseling/discussion Z71.89 Sepsis A41.9 Alzheimer's dementia G30.9; F02.80 Encephalopathy G93.40 Time Spent (min) 35 Time Spent Midlevel Total time spent 35 minutes with > 50% of that time spent assessing the patient, discussing goals of care with patient and IDT. Also completing a POLST form over the phone
[2019-11-21] MEDS ORDERED: ACETAMINOPHEN 1,000 MG/100 ML VIAL IV PRN (18:20)
[2019-11-22] MEDS: INSULIN ASPART 100 UNITS/ML 3 ML PEN SC SCH ×2 (05:06→12:07)
[2019-11-22 06:15] LABS: Mean Corpuscular Hgb Conc 33.4 g/dL (32-36)
[2019-11-22 06:22] LABS: Hematocrit (blood only) 39.2 % (37-47); Hemoglobin 13.1 g/dL (12.0-16.0); Mean Corpuscular Volume 86.7 fL (80-100); RDW Standard Deviation 43.6 fL (36.4-46.3); Red Blood Count 4.52 M/uL (4.2-5.4); White Blood Count 7.18 K/uL (4.8-10.8)
[2019-11-22 06:43] LABS: Platelet Count 102 K/uL (130-400)
[2019-11-22 06:50] LABS: BUN Creatinine Ratio 25.3 (10-20); Calcium 7.9 mg/dl (8.5-10.1); Creatinine Clr Calc Pharmacy 39.5 ml/min; Est GFR (African American) 73.5; Est GFR (Non-African American) 63.4; Magnesium 1.7 mg/dl (1.8-2.4); Potassium 4.7 mmol/L (3.5-5.1)
[2019-11-22] MEDS ORDERED: MAGNESIUM SULFATE / D5W 1 GM/100 ML BAG IV ONE (08:30)
[2019-11-22] MEDS: cefTRIAXone SODIUM 1,000 MG in DEXTROSE 5% 50 ML IV SCH (08:33)
[2019-11-22] MEDS: methIMAzole 5 MG TABLET PO SCH (08:35)
[2019-11-22] MEDS: ATORVASTATIN 40 MG TAB PO SCH (08:35)
[2019-11-22] MEDS: ATENOLOL 25 MG TABLET PO SCH (08:35)
[2019-11-22] MEDS: lisinopriL 20 MG TAB PO SCH (08:35)
[2019-11-22] MEDS ORDERED: INSULIN GLARGINE SOLOSTAR 100 UNITS/ML 3 ML PEN SC SCH (09:00)
--- NOTE | 2019-11-22 09:50 | Pharmacy Report ---
Pharmacy Glycemic Short Note 2 - Date of Service November 22, 2019 - Glycemic Short BSG Results (Last 24 hours): 11/21/19 11/21/19 11/21/19 12:48 17:39 20:38 Glucose POC Glucose 162 H 176 H 177 H 11/21/19 11/22/19 11/22/19 23:54 05:08 05:20 Glucose 179 H POC Glucose 185 H 168 H 11/22/19 05:54 Glucose POC Glucose 188 H OUTPATIENT ANTIDIABETIC REGIMEN: * Lantus 10 units HS, Novolog 6 units with breakfast/lunch * A1c = 7.6 % 11/16/19 ASSESSMENT: * 89 year old female admitted with encephalopathy/UTI. Pharmacy consulted for glycemic management. BINU on admission, now improved. Patient continues NPO given very high risk for aspiration. * Patient with hypernatremia, managing on dextrose infusion. Rate of infusion @ 50 ml/hr. BSGs continuing to improve daily * Patient has received 21 units of insulin over the past 24hrs * 15 units of basal (Lantus) * 6 units of bolus (correctional insulin only with NovoLog since NPO) * BSGs [id number] * AM fasting BSG slightly above goal range this AM at 188 mg/dl. Pt required additional 6 units of correctional insulin to maintain BSGs in goal range. Hesitant to add all of this to her basal since this is also covering the dextrose infusion. Do not want extra basal on board in the event that the dextrose infusion is stopped. * Will increase basal by half of the additional correctional insulin needed and continue to titrate based on BSG trends and dextrose infusion * No changes needed to CF/CR --> pt continues to be NPO PLAN FOR INPATIENT GLYCEMIC CONTROL: * Basal insulin * increase slightly to Lantus 18 units SQ daily in AM * Bolus insulin * NovoLog per scale ACHS or Q6hrs while NPO * Goal Range: Low 110 mg/dL - High 140 mg/dL * Correction Factor: 20 mg/dL/unit * Nutritional / Prandial insulin per carb ratio of 1 unit per 15 grams CHO consumed PLAN FOR DISCHARGE: * A1c = 7.6% on 11/16/19 * This is in goal range for patient based on age/co-morbidities. * However, may need to simplify regimen at dc based on comfort care measures. * Additional recs TBD
[2019-11-22] MEDS: POTASSIUM CHLORIDE 40 MEQ in DEXTROSE 5% 1,000 ML IV SCH (11:18)
--- NOTE | 2019-11-22 14:03 | Hospitalist Progress Note ---
Date of Service November 22, 2019 Assessment & Plan (1) Encephalopathy: Acute metabolic encephalopathy Mostly Non verbal at baseline Sepsis, Hypernatremia, Dementia could be contributing CT head:No acute intracranial abnormality. Monitor No aggressive measures as per family Palliative care consulted to address goals of care Prognosis poor Mostly Obtunded Sepsis Lactic acidosis UTI Lactate levels normalized with IV fluids Blood Cx: No growth to date Urine Cx:Klebsiella Continue IV fluids as per Nephrology Continue Cefepime>>Transitioned to Rocephin Continue Rocephin Day #5 Completed Antibiotic course Acute Kidney Injury--Resolved Metabolic Acidosis--Resolved Hypokalemia--Resolved Likely due to poor oral intake Prerenal Vs ATN in setting of sepsis Avoid nephrotoxic agents as able Monitor renal function Bladder scan as needed Appreciate Nephrology Input Received IV fluids Renal function remains stable Dysphagia Speech Eval done Aspiration precautions Speech therapy Instruction to be given upon discharge Thrombocytopenia No bleeding issues Monitor Platelet count improving Elevated Troponin Likely Type II NM in setting of sepsis/BINU/Tachycardia EKG: Chronic LBBB Hypernatremia--Resolved Continue IV fluids as per nephrology Monitor sodium levels Appreciate neurology input Sodium: 142 today H/O CAD/PVD Chronic LBBB Mild aortic stenosis Continue home medications as able Hyperthyroidism H/O Multinodular goiter Refused outpatient Endocrinology referral in the past Continue Methimazole as able DM II Last HbA1c:7.4 Continue Insulin therapy Monitor BGs Glycemic pharmacy consulted DVT Px: SCDs Re: Thrombocytopenia Code Status DNI/DNR Disposition Plan [facility] today with Hosp[facility] services Admission and Anticipated Discharge Date Admission Date: November 16, 2019 Subjective Patient is seen and examined at bedside More alert, awake today Obtunded and non verbal this morning Patient is planned to be transitioned to hospice services--family agreees with plan 4 beats of NSVT on monitor Discussed with Palliative Care today Review of Systems Review of Systems: Unobtainable due to reduced consciousness Physical Exam Physical Exam: Physical Exam: Vitals signs as noted above General Appearance:Thin, Chronic ill appearing, Non verbal, Obtunded Head: normocephalic, Atraumatic Eyes: normal inspection Neck: supple, Trachea midline Respiratory/Chest: Decreased breath sounds, CTA, No accessory muscle use Cardiovascular: S1, S2, + murmur Abdomen/GI:Soft, Non tender, Bowel sounds present Extremities/Musculoskelatal:normal inspection, no edema Neurologic/Psych:Non verbal, Unable to perform complete neuro exam, Doesn't follow commands Skin: normal color, warm Results & Data Results & Data ([facility]) Vital Signs (Past 12 Hours) Vital Signs Temp Pulse Pulse Resp BP Pulse Ox 11/22/19 07:00 36.8 C 68 72 18 156/73 H 97 11/22/19 04:50 36.6 C 76 18 129/69 93 Laboratory Results Short CBC 11/22/19 Range/Units 05:20 WBC 7.18 (4.8-10.8) K/uL Hgb 13.1 (12.0-16.0) g/dL Hct 39.2 (37-47) % Plt Count 102 L (130-400) K/uL BMP 11/22/19 05:20 Sodium 142 Potassium 4.7 Chloride 114 H Carbon Dioxide 22 BUN 21 H Creatinine 0.83 Glucose 179 H Calcium 7.9 L
--- NOTE | 2019-11-22 14:20 | Discharge Summary ---
Date of Service November 22, 2019 Admission HPI Per Admitting Provider History obtained from ER provider and records. Limited history from patient secondary to nonverbal state. Medical history significant for CAD/PVD as per records, chronic LBBB, mild aortic stenosis (TTE 2010), dementia, aspiration risk, hyperthyroidism/hx multinodular goiter as per records, DM2 insulin requiring, history of kidney stones as per records. Last confinement August 2016 for aspiration pneumonia. Patient with poor oral intake at residential the last 5 days as per records. Spitting out the food. No choking/cough episodes noted. No abdominal pain complaints. Abnormal results on outpatient lab work today : serum sodium of 163, serum creatinine 2.4. Serum TSH 0.1, free T4 2.62 Patient sent to ER for evaluation. Medical History as above Thyroid scan (04/2017): Multinodular goiter with hyperfunctioning nodule lower pole of left thyroid gland. 24-hour radioiodine uptake is 13%. 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 Admission Exam Per Admitting Provider Physical Exam Physical Exam: GENERAL: Comfortable, nonverbal, no respiratory distress SKIN: Normal color, warm HEENT: [place] palpebral conjunctivae, no ptosis, dry buccal mucosa NECK : Supple, no tenderness CHEST : Decreased breath sounds , no tenderness HEART : Tachycardic, systolic murmur ABDOMEN: Some distention, nontender EXTREMITIES : No LE swelling/tenderness, no other conspicuous deformities noted NEUROLOGIC : Nonverbal, incoherent, no facial asymmetry, gait and stance not assessed Principal Diagnosis Acute metabolic encephalopathy Sepsis Urinary tract infection Acute kidney injury Metabolic acidosis Hypokalemia Dysphagia Thrombocytopenia Hypernatremia Discharge Data Allergies Allergy/AdvReac Type Severity Reaction Status Date / Time No Known Allergies Allergy Unknown Verified 11/16/19 20:36 Consultations 11/16/19 19:49 ED Decision to Admit Stat 11/17/19 07:29 Consult Nephrology Routine 11/17/19 11:29 Consult Palliative Care Routine Procedures Performed CT ABD: Lung bases: The heart is normal in size and without pericardial effusion. The coronary arteries and mitral annulus are densely calcified. There is a small hiatal hernia. The lung bases are clear noting dependent atelectasis. Liver: The unenhanced liver is normal in size, contour, and attenuation. There is minimal central intrahepatic biliary ductal dilatation. Gallbladder: Surgically absent. Spleen: Normal in size and attenuation. Pancreas: The unenhanced pancreas is atrophic and grossly unremarkable. Adrenal glands: Unremarkable. Kidneys: The unenhanced kidneys are atrophic and without hydronephrosis. There are no renal calculi clearly identified. There are numerous bilateral renal vascular calcifications. There is no evidence of contour deforming renal mass lesion. Abdominal vasculature: The abdominal aorta is normal in course and caliber noting advanced atherosclerotic calcification. Bowel: There is no bowel obstruction. Fecal retention is noted in the right:. Liquid stool is noted in the left colon. The appendix is not identified. Peritoneum: There is no intraperitoneal free air or abdominal ascites. Lymphadenopathy: None. Pelvic viscera: The bladder is partially decompressed around a Lopez catheter. The bladder wall appears thickened and there is pericystic inflammation. Foci of intraluminal gas are likely related to instrumentation. Skeletal structures: The skeletal structures are heterogeneously osteopenic. There is advanced lumbosacral spondylosis. A large hemangioma seen in the body of L4. Advanced arthritic change is seen in the hips. No lytic or blastic lesions are seen. CXR: Patient is rotated towards the left. Cardiac silhouette is upper limits of normal in size. Mitral annular calcifications. Calcified plaque of the thoracic aortic arch. There is no pneumothorax, pleural effusion, airspace consolidation or overt pulmonary edema. Osteoarthritis of the left shoulder. Reverse right shoulder total joint arthroplasty. Bones appear grossly intact. CT head: No acute intracranial hemorrhage, midline shift, intracranial mass, hydrocephalus, territorial ischemia or abnormal extra-axial collection. Age- related involutional changes with ex vacuo ventriculomegaly. Senescent calcifications of the basal ganglia. Cerebral vascular calcifications. Patchy white matter hypodensities suggest chronic microvascular ischemic disease. Encephalomalacia of the right frontal lobe near the vertex suggests remote infarct. The calvarium is intact. The paranasal sinuses, mastoid air cells, and middle ear cavities are clear. Ordered Studies 11/16/19 18:26 CT head/brain wo con Stat 11/17/19 05:25 CT abd pelvis wo con Urgent Hospital Course (1) Encephalopathy: Acute metabolic encephalopathy Mostly Non verbal at baseline Sepsis, Hypernatremia, Dementia could be contributing CT head:No acute intracranial abnormality. Monitor No aggressive measures as per family Palliative care consulted to address goals of care Prognosis poor Mostly Obtunded Sepsis Lactic acidosis UTI Lactate levels normalized with IV fluids Blood Cx: No growth to date Urine Cx:Klebsiella Continue IV fluids as per Nephrology Continue Cefepime>>Transitioned to Rocephin Continue Rocephin Day #5 Completed Antibiotic course Acute Kidney Injury--Resolved Metabolic Acidosis--Resolved Hypokalemia--Resolved Likely due to poor oral intake Prerenal Vs ATN in setting of sepsis Avoid nephrotoxic agents as able Monitor renal function Bladder scan as needed Appreciate Nephrology Input Received IV fluids Renal function remains stable Dysphagia Speech Eval done Aspiration precautions Speech therapy Instruction to be given upon discharge Thrombocytopenia No bleeding issues Monitor Platelet count improving Elevated Troponin Likely Type II [place] in setting of sepsis/BINU/Tachycardia EKG: Chronic LBBB Hypernatremia--Resolved Continue IV fluids as per nephrology Monitor sodium levels Appreciate neurology input Sodium: 142 today H/O CAD/PVD Chronic LBBB Mild aortic stenosis Continue home medications as able Hyperthyroidism H/O Multinodular goiter Refused outpatient Endocrinology referral in the past Continue Methimazole as able DM II Last HbA1c:7.4 Continue Insulin therapy Monitor BGs Glycemic pharmacy consulted DVT Px: SCDs Re: Thrombocytopenia Code Status DNI/DNR Disposition Plan to discharge to [facility] today with Hospice services Total Time Total Time Spent Total Time Spent (In Minutes): 38 minutes Total Time Includes: Examination of the Patient, Discharge Planning, Medication Reconciliation, Communication With Other Providers and Other Discharge Plan Discharge Items Patient Disposition: Hospice - Medical Facility Reason For Visit: ENCEPHALOPATHY, DC ISOL, COVID NEG Discharge Diagnosis: Acute metabolic encephalopathy Sepsis Urinary tract infection Acute kidney injury Metabolic acidosis Hypokalemia Dysphagia Thrombocytopenia Hypernatremia Activity: Per Instructions section Exercise/Sports: As tolerated Non-emergency contact: Primary Care Provider Call non-emergency contact if: you have any medication questions, your symptoms worsen, your pain is not controlled, your pain is worsening, your pain is unusual for you, your pain is concerning for you and you have a fever Follow-up/Referrals: Zulay Escamilla MD [Primary Care Provider] - Diet: Regular Addtl Attending Provider Instructions: Follow-up with your primary care physician Dr. Escamilla in 1 week. Pending Studies at Discharge: No Stand-Alone Forms: My [facility] Skilled Items Patient informed of condition?: Yes DNR: Yes Discharge Level of Care: Skilled Communicable Disease: No Discharge Prognosis: Deteriorating Lines: None Urinary Catheter: No Medications and DC Order Prescriptions: Continued atorvastatin [Lipitor] 40 mg tablet 40 mg PO DAILY RF: 0 acetaminophen [Tylenol] 325 mg Tablet 650 mg PO Q4 PRN (Reason: Fever Or Pain) RF: 0 Lantus U-100 Insulin 100 unit/mL solution 10 unit SUBCUT HS RF: 0 lisinopril [Zestril] 20 mg tablet 20 mg PO DAILY RF: 0 sennosides-docusate sodium [Senexon-S] 8.6-50 mg tablet 2 tab PO AMHS RF: 0 Desenex 2 % Powder 1 applic TOPICAL BID RF: 0 insulin aspart U-100 [Novolog U-100 Insulin aspart] 100 unit/mL solution 6 unit subcut .BID UD RF: 0 polyethylene glycol 3350 [Miralax] 17 gram/dose powder 17 g PO AMHS RF: 0 calcium carbonate-vitamin D3 [Oyster Shell Calcium-Vit D3] 500 mg(1,250mg) - 200 unit tablet 1 tab PO AMHS RF: 0 cholecalciferol (vitamin D3) [Vitamin D3] 25 mcg (1,000 unit) tablet 1,000 unit PO DAILY RF: 0 omega 1-jzt-[id number]-fish oil [Fish Oil] 1,200 (144-216) mg Capsule 1 cap PO DAILY RF: 0 atenolol 25 mg Tablet 25 mg PO DAILY RF: 0 methimazole 10 mg PO DAILY RF: 0 Discharge Orders: Discharge Order (Routine); Ordered 11/22/19 Ordered By: Josef Yoo Admission Data Admit Date/Time: 11/16/19 21:21 Attending Provider: Josef Yoo Admit Provider: Paulo Dejesus Primary Care Provider: Zulay Escamilla Other Providers: Paulo Dejesus ; Brenda Hammer ; [facility] ; Pat Shanks Other Interventions: Discharge Summary Assessment (RN) Last Done: 11/22/19 15:05
--- NOTE | 2019-11-22 15:06 | Nephrology Progress Note ---
Date of Service November 22, 2019 Assessment & Plan (1) Hypernatremia: Presenting sodium 162 on 11/15 at 1800, down to 142 this am. -We will continue D5 with potassium chloride at 50 mL/h. -palliative following; patient planned for discharge with hospice. Renal will sign off. Please call if additional questions (2) Acute renal failure (ARF): baseline creatinine 0.8; presenting creatinine 2.7 on 11/15; down to 1.1 on 11/18 and back to baseline today at 0.8. Prerenal versus ATN in the setting of volume depletion, presumptive uti >> Stage 3 BINU -daily bmp -cont nephrotoxin avoidance including holding OP lisinopril (3) UTI (urinary tract infection): ua consistent with this; CT suggestive; urine cx w/ K pniae; with elevated lactate, renal failure, UTI meets sepsis criteria -on ceftriaxone now, clinically improving (4) Hypokalemia: >IVF K rich as above; K of 4.7 today. Admission and Anticipated Discharge Date Admission Date: November 16, 2019 Subjective Patient does not give history. Sodium remains stable at 142. Patient continues D5 water at 50. She is planned for discharge with hospice. Review of Systems Review of Systems: Unobtainable due to cognitive status Physical Exam Physical Exam: General exam: Appears comfortable, no acute distress HEENT: Pupils are equal and reactive to light Neck: No JVD, neck is supple trachea is midline Respiratory system: Clear breath sounds bilaterally. Gastrointestinal: Abdomen is soft, non distended, non tender, bowel sounds are present CVS: Regular rate and rhythm. No murmurs, rubs or gallops Musculoskeletal: No joint or muscle tenderness Extremities: Non tender, no edema, peripheral pulses are present Neuro: Awake but does not answer questions Skin: No rashes Results & Data ([facility]) Vital Signs (Past 12 Hours) Vital Signs Temp Pulse Pulse Resp BP Pulse Ox 11/22/19 14:44 36.4 C L 64 19 152/66 H 100 11/22/19 07:00 36.8 C 68 72 18 156/73 H 97 11/22/19 04:50 36.6 C 76 18 129/69 93 Laboratory Results 11/22/19 05:20 11/22/19 05:20 WBC 7.18 RBC 4.52 MCV 86.7 MCH 29.0 MCHC 33.4 RDW Std Deviation 43.6 RDW Coeff of Salvatore 14.0 Plt Count 102 L (1) Acute renal failure (ARF) Acute renal failure type: unspecified Qualified Code(s): N17.9 - Acute kidney failure, unspecified (2) UTI (urinary tract infection) Urinary tract infection type: acute cystitis Hematuria presence: with hematuria Qualified Code(s): N30.01 - Acute cystitis with hematuria
== END 2019-11-22 17:05 | disposition hospice, inpatient (51) | DRG 871 ==
LOC: ED 17:54 → 2W 21:21